=== PATIENT | male | born 1960 | race Caucasian/White ===

== ENCOUNTER 2016-08-08 07:50 | Inpatient (IN) | payer BC ==
[2016-08-08] MEDS ORDERED: methylPREDNISolone SOD SUCCI 125 MG/2 ML VIAL IV STA (08:22)
[2016-08-08] MEDS ORDERED: ALBUTEROL NEBULIZED 2.5 MG/3 ML INHALATION STA (08:22)
[2016-08-08] MEDS: AZITHROMYCIN 500 MG in SODIUM CHLORIDE 0.9% 250 ML IVPB STA ×2 (08:48→10:39)
[2016-08-08] MEDS: IPRATROPIUM-ALBUTEROL 3 ML NEB INHALATION STA ×2 (09:00→09:08)
[2016-08-08 09:29] LABS: CH 36.3; CHCM 37.7; HCT 42.4 % (39.0-53.0); HDW 2.18; HGB 15.5 gm/dL (13.0-17.5); Immature Gran Flag Moderate; MCH 35.3 pg (25.0-35.0); MCHC 36.7 g/dL (31.0-37.0); MCV 96.4 fL (80.0-100.0); Mean Platelet Volume 7.4; RDW 12.3 % (11.5-15.5); WBC 9.6 k/uL (3.8-10.6); WBC (Perox) 9.67
[2016-08-08 09:36] LABS: Partial Thromboplastin Time 38.9 sec (22.0-30.0); Prothrombin Time 10.5 sec (9.0-12.0)
[2016-08-08 09:43] LABS: ALT 47 U/L (21-72); AST 88 U/L (17-59); Alkaline Phosphatase 68 U/L (38-126); Blood Urea Nitrogen 8 mg/dL (9-20); Calcium 8.2 mg/dL (8.4-10.2); Carbon Dioxide 29 mmol/L (22-30); Glucose 122 mg/dL (74-99); Non-African American GFR(MDRD) >60 (>60 ml/min/1.73 sqM); Potassium 4.5 mmol/L (3.5-5.1); Total Bilirubin 0.6 mg/dL (0.2-1.3); Total Protein 6.6 g/dL (6.3-8.2)
[2016-08-08 09:45] LABS: Anion Gap 8 mmol/L
[2016-08-08] MEDS ORDERED: OSELTAMIVIR 75 MG CAP PO STA (09:45)
--- NOTE | 2016-08-08 09:54 | XR ---
EXAMINATION TYPE: XR chest 1V portable DATE OF EXAM: 08/08/2016 9:40 AM COMPARISON: NONE HISTORY: Cough and congestion TECHNIQUE: Single frontal view of the chest is obtained. FINDINGS: Heart and mediastinum are normal. There is some coarsening of interstitial markings in the left lower lobe. There is no pleural effusion. There are no hilar masses. IMPRESSION: Mild left lower lobe infiltrate. No heart failure.
[2016-08-08 09:55] LABS: Add Differential Manual Differential; Troponin I <0.012 ng/mL (0.000-0.034)
[2016-08-08 09:59] LABS: Manual Review Performed; Metamyelocytes % 3.5 %; Nucleated Red Blood Cells 0 /100 WBC (0-0); Total Cells Counted 200
[2016-08-08 10:05] LABS: Chloride 75 mmol/L (98-107); Creatine Kinase MB 4.9 ng/mL (0.0-2.4); Sodium 112 mmol/L (137-145)
[2016-08-08] MEDS ORDERED: SODIUM CHLORIDE 0.9% 500 ML IV ONE (10:12)
[2016-08-08] MEDS ORDERED: RX INFO: IV CONTRAST WAS GIVEN 1 EACH MISC MISCELLANE PRN (10:13)
[2016-08-08 10:18] LABS: Creatine Kinase 1989 U/L (55-170)
--- NOTE | 2016-08-08 10:20 | ED ---
SOB HPI - General Chief Complaint: Shortness of Breath Stated Complaint: flu symptoms,rib cage pain Time Seen by Provider: 08/08/16 08:09 Source: patient, family Mode of arrival: ambulatory Limitations: no limitations - History of Present Illness Initial Comments: Shortness of breath ongoing for about 1.5 weeks he was diagnosed with the flu and he been feeling worse off-and-on for about last several days and off and on he had a fever he feels quite tired and actually he stating he feels like he's time and on arrival his O2 sat room air was 89 he was poorly moving air in and out. Denies any headaches no neck stiffness does have a shortness of breath does have a some discomfort with deep breaths and as a history of hepatitis C he said he has been treated for the pain upon surgical history is significant for multiple hernia surgeries he had a 3-4 interventions for his hernias no abdominal pain no frequency urgency dysuria no sinus symptoms of TIA or CVA - Related Data Home Medications Medication Instructions Recorded Confirmed Cyanocobalamin (Vitamin B-12) 2,500 mcg PO DAILY 08/08/16 08/08/16 [Vitamin B12] Ibuprofen [Advil] 600 mg PO Q6HR PRN 08/08/16 08/08/16 Multivit-Min/FA/Lycopene/Lut 1 tab PO DAILY 08/08/16 08/08/16 [Centrum Silver Tablet] Allergies Allergy/AdvReac Type Severity Reaction Status Date / Time No Known Allergies Allergy Verified 08/08/16 12:13 Review of Systems ROS Statement: Those systems with pertinent positive or pertinent negative responses have been documented in the HPI. ROS Other: All systems not noted in ROS Statement are negative. Past Medical History Additional Past Medical History / Comment(s): hepatitis C History of Any Multi-Drug Resistant Organisms: None Reported Past Psychological History: No Psychological Hx Reported Smoking Status: Current every day smoker Past Alcohol Use History: None Reported Past Drug Use History: None Reported General Exam - General Exam Comments Initial Comments: General: The patient is awake and alert, he looks pale and weak Skin: Skin is warm and dry and no rashes or lesions are noted. Eye: Pupils are equal, round and reactive to light, extra-ocular movements are intact; there is normal conjunctiva bilaterally. Ears, nose, mouth and throat: There are moist mucous membranes and no oral lesions. Neck: The neck is supple, there is no tenderness Cardiovascular: There is a regular rate and rhythm. No murmur, rub or gallop is appreciated. Respiratory: To auscultation bilateral, some is consistent with the moderate to severe COPD and exchange is bit better on the left side Gastrointestinal: Soft, non-distended, non-tender abdomen without masses or organomegaly noted. There is no rebound or guarding present. Bowel sounds are unremarkable. Back: There is no tenderness to palpation in the midline. There is no obvious deformity. Musculoskeletal: Normal ROM, no tenderness, There is no pedal edema. There is no calf tenderness or swelling. No cords were appreciated. Neurological: CN II-XII intact, Cranial nerves III through XII are intact. There are no obvious motor or sensory deficits. Coordination appears grossly intact. Speech is normal. Psychiatric: Cooperative, appropriate mood & affect, normal judgment. Limitations: no limitations Course Vital Signs 08/08/16 08/08/16 08/08/16 08:01 09:03 09:05 Temperature 99.0 F Pulse Rate 101 H 96 Respiratory 20 18 Rate Blood Pressure 131/69 O2 Sat by Pulse 88 L Oximetry 08/08/16 08/08/16 08/08/16 09:10 09:11 09:12 Temperature Pulse Rate 98 98 97 Respiratory 18 Rate Blood Pressure 139/80 O2 Sat by Pulse 91 L Oximetry 08/08/16 08/08/16 08/08/16 09:20 10:59 12:09 Temperature Pulse Rate 100 97 96 Respiratory 25 H 25 H Rate Blood Pressure 139/82 136/85 O2 Sat by Pulse 97 93 L Oximetry This EKG is normal sinus rhythm ventricular rate is 100 DE interval is 144 QRS duration is 92 QT/QTc is 346/446 review of this EKG did not reveal any ST elevation or ST depression it seems bit prominent in V4 V5 and V6 - Reevaluation(s) Reevaluation #1: 08/08/16 13:03 I spoke with the Dr. Anthony or about all the comorbidities and hypoxia, pneumonia, hyponatremia he has she agreed for the patient to be To the ICU for now will continue the BiPAP as well Medical Decision Making - Lab Data Result diagrams: 08/08/16 08:55 08/08/16 08:55 Lab Results 08/08/16 08/08/16 08/08/16 Range/Units 08:55 08:55 08:55 WBC 9.6 (3.8-10.6) k/uL RBC 4.40 (4.30-5.90) m/uL Hgb 15.5 (13.0-17.5) gm/dL Hct 42.4 (39.0-53.0) % MCV 96.4 (80.0-100.0) fL MCH 35.3 H (25.0-35.0) pg MCHC 36.7 (31.0-37.0) g/dL RDW 12.3 (11.5-15.5) % Plt Count 145 L (150-450) k/uL Neutrophils % (Manual) 57.0 % Band Neutrophils % 29.0 % Lymphocytes % (Manual) 3.5 % Monocytes % (Manual) 7.0 % Metamyelocytes % 3.5 % Neutrophils # (Manual) 8.3 H (1.3-7.7) k/uL Lymphocytes # (Manual) 0.3 L (1.0-4.8) k/uL Monocytes # (Manual) 0.7 (0-1.0) k/uL Nucleated RBCs 0 (0-0) /100 WBC Manual Slide Review Performed Poikilocytosis (manual Present PT (9.0-12.0) sec INR (<1.1) APTT (22.0-30.0) sec D-Dimer (<0.60) mg/L FEU Sample Site ABG pH (7.35-7.45) ABG pCO2 (35-45) mmHg ABG pO2 (83-108) mmHg ABG HCO3 (21-25) mmol/L ABG Total CO2 (19-24) mmol/L ABG O2 Saturation (94-97) % ABG Base Excess mmol/L FiO2 % Sodium 112 L* (137-145) mmol/L Potassium 4.5 (3.5-5.1) mmol/L Chloride 75 L* (98-107) mmol/L Carbon Dioxide 29 (22-30) mmol/L Anion Gap 8 mmol/L BUN 8 L (9-20) mg/dL Creatinine 0.58 L (0.66-1.25) mg/dL Est GFR (MDRD) Af Amer >60 (>60 ml/min/1.73 sqM) Est GFR (MDRD) Non-Af >60 (>60 ml/min/1.73 sqM) Glucose 122 H (74-99) mg/dL Plasma Lactic Acid Paramjit (0.7-2.0) mmol/L Calcium 8.2 L (8.4-10.2) mg/dL Total Bilirubin 0.6 (0.2-1.3) mg/dL AST 88 H (17-59) U/L ALT 47 (21-72) U/L Alkaline Phosphatase 68 (38-126) U/L Total Creatine Kinase 1989 H (55-170) U/L CK-MB (CK-2) 4.9 H* (0.0-2.4) ng/mL CK-MB (CK-2) Rel Index Troponin I <0.012 (0.000-0.034) ng/mL NT-Pro-B Natriuret Pep pg/mL Total Protein 6.6 (6.3-8.2) g/dL Albumin 3.9 (3.5-5.0) g/dL Influenza Type A RNA (Not Detectd) Influenza Type B (PCR) (Not Detectd) 08/08/16 08/08/16 08/08/16 Range/Units 08:55 08:55 08:55 WBC (3.8-10.6) k/uL RBC (4.30-5.90) m/uL Hgb (13.0-17.5) gm/dL Hct (39.0-53.0) % MCV (80.0-100.0) fL MCH (25.0-35.0) pg MCHC (31.0-37.0) g/dL RDW (11.5-15.5) % Plt Count (150-450) k/uL Neutrophils % (Manual) % Band Neutrophils % % Lymphocytes % (Manual) % Monocytes % (Manual) % Metamyelocytes % % Neutrophils # (Manual) (1.3-7.7) k/uL Lymphocytes # (Manual) (1.0-4.8) k/uL Monocytes # (Manual) (0-1.0) k/uL Nucleated RBCs (0-0) /100 WBC Manual Slide Review Poikilocytosis (manual PT 10.5 (9.0-12.0) sec INR 1.0 (<1.1) APTT 38.9 H (22.0-30.0) sec D-Dimer 1.06 H (<0.60) mg/L FEU Sample Site ABG pH (7.35-7.45) ABG pCO2 (35-45) mmHg ABG pO2 (83-108) mmHg ABG HCO3 (21-25) mmol/L ABG Total CO2 (19-24) mmol/L ABG O2 Saturation (94-97) % ABG Base Excess mmol/L FiO2 % Sodium (137-145) mmol/L Potassium (3.5-5.1) mmol/L Chloride (98-107) mmol/L Carbon Dioxide (22-30) mmol/L Anion Gap mmol/L BUN (9-20) mg/dL Creatinine (0.66-1.25) mg/dL Est GFR (MDRD) Af Amer (>60 ml/min/1.73 sqM) Est GFR (MDRD) Non-Af (>60 ml/min/1.73 sqM) Glucose (74-99) mg/dL Plasma Lactic Acid Paramjit (0.7-2.0) mmol/L Calcium (8.4-10.2) mg/dL Total Bilirubin (0.2-1.3) mg/dL AST (17-59) U/L ALT (21-72) U/L Alkaline Phosphatase (38-126) U/L Total Creatine Kinase (55-170) U/L CK-MB (CK-2) (0.0-2.4) ng/mL CK-MB (CK-2) Rel Index Troponin I (0.000-0.034) ng/mL NT-Pro-B Natriuret Pep 162 pg/mL Total Protein (6.3-8.2) g/dL Albumin (3.5-5.0) g/dL Influenza Type A RNA Not Detected (Not Detectd) Influenza Type B (PCR) Detected H (Not Detectd) 08/08/16 08/08/16 Range/Units 08:58 09:32 WBC (3.8-10.6) k/uL RBC (4.30-5.90) m/uL Hgb (13.0-17.5) gm/dL Hct (39.0-53.0) % MCV (80.0-100.0) fL MCH (25.0-35.0) pg MCHC (31.0-37.0) g/dL RDW (11.5-15.5) % Plt Count (150-450) k/uL Neutrophils % (Manual) % Band Neutrophils % % Lymphocytes % (Manual) % Monocytes % (Manual) % Metamyelocytes % % Neutrophils # (Manual) (1.3-7.7) k/uL Lymphocytes # (Manual) (1.0-4.8) k/uL Monocytes # (Manual) (0-1.0) k/uL Nucleated RBCs (0-0) /100 WBC Manual Slide Review Poikilocytosis (manual PT (9.0-12.0) sec INR (<1.1) APTT (22.0-30.0) sec D-Dimer (<0.60) mg/L FEU Sample Site lbrac ABG pH 7.51 H (7.35-7.45) ABG pCO2 31 L (35-45) mmHg ABG pO2 60 L (83-108) mmHg ABG HCO3 24 (21-25) mmol/L ABG Total CO2 25 H (19-24) mmol/L ABG O2 Saturation 93.0 L (94-97) % ABG Base Excess 1.5 mmol/L FiO2 55 % Sodium (137-145) mmol/L Potassium (3.5-5.1) mmol/L Chloride (98-107) mmol/L Carbon Dioxide (22-30) mmol/L Anion Gap mmol/L BUN (9-20) mg/dL Creatinine (0.66-1.25) mg/dL Est GFR (MDRD) Af Amer (>60 ml/min/1.73 sqM) Est GFR (MDRD) Non-Af (>60 ml/min/1.73 sqM) Glucose (74-99) mg/dL Plasma Lactic Acid Paramjit 0.8 (0.7-2.0) mmol/L Calcium (8.4-10.2) mg/dL Total Bilirubin (0.2-1.3) mg/dL AST (17-59) U/L ALT (21-72) U/L Alkaline Phosphatase (38-126) U/L Total Creatine Kinase (55-170) U/L CK-MB (CK-2) (0.0-2.4) ng/mL CK-MB (CK-2) Rel Index Troponin I (0.000-0.034) ng/mL NT-Pro-B Natriuret Pep pg/mL Total Protein (6.3-8.2) g/dL Albumin (3.5-5.0) g/dL Influenza Type A RNA (Not Detectd) Influenza Type B (PCR) (Not Detectd) Critical Care Time Critical Care Time: Yes Total Critical Care Time: 60 Critical Care Time: He came in with the O2 sat of firm 89, we tried a neb treatments that did not make a big difference with DT ABGs ABGs reveal quite a low pCO2 and low pCO2 considering his chest x-ray started about some antibiotics and give him some Solu-Medrol considering he has smoked for quite 3 years that did not improve his oxygenation at that point we did the way he did a trial of BiPAP that he didn't help his O2 sat and then we got the labs back his sodium is quite low 112 along with the chloride discussed with the pharmacist and start him on hypertonic saline 5050 mils an hour for next 3 hours she also had some liter of fluids on arrival and SERAFIN flow be administered along with the antibiotics and a considering his elevated d-dimer wanted make sure we are not dealing with a PE and CT angiography done and a regardless of the PE home but his or she will to be an ICU considering his very low sodium and hypoxia Disposition Clinical Impression: Influenza B, Pneumonia, Hypoxia, Hyponatremia, Elevated d-dimer Disposition: ADMITTED IP TO THIS HOSP Referrals: Cornell Leone DO [Primary Care Provider] - 1-2 days
[2016-08-08] MEDS ORDERED: [UNRECOGNIZED DRUG - OTHER] IV ONE (10:30)
[2016-08-08] MEDS ORDERED: SODIUM CHLORIDE 3% IV ONE (10:30)
--- NOTE | 2016-08-08 10:30 | US ---
EXAMINATION TYPE: US abdomen complete DATE OF EXAM: 08/08/2016 10:24 AM COMPARISON: No previous CLINICAL HISTORY: Pain. EXAM MEASUREMENTS: Liver Length: 18.3 cm Gallbladder Wall: 0.2 cm CBD: 0.4 cm Spleen: n/a Right Kidney: 11.8 x 5.3 x 5.9 cm Left Kidney: 11.8 x 6.7 x 5.8 cm Pancreas: visualized portions wnl, body and tail obscured by overlying midline bowel gas Liver: slightly enlarged at 18.3cm Gallbladder: wnl Evidence for sonographic Best's sign: yes CBD: visualized portions wnl, limited by overlying bowel gas Spleen: obscured by overlying bowel gas Right Kidney: wnl Left Kidney: wnl Upper IVC: wnl Abd Aorta: visualized portions wnl, mid and distal portion obscured by overlying midline bowel gas The liver is homogenous. The intrahepatic portion of the IVC and proximal abdominal aorta are within normal limits. There is no evidence of cholelithiasis. Common bile duct is unremarkable. The visu alized portions of the pancreas are homogenous. The spleen is unremarkable. Kidneys are symmetric a nd free of hydronephrosis. No renal lesions are seen. IMPRESSION: Negative complete abdominal sonogram.
[2016-08-08 10:31] LABS: ABG Base Excess 1.5 mmol/L; ABG HCO3 24 mmol/L (21-25); ABG PCO2 31 mmHg (35-45); ABG PH 7.51 (7.35-7.45); ABG PO2 60 mmHg (83-108); ABG TCO2 25 mmol/L (19-24)
[2016-08-08] MEDS: SODIUM CHLORIDE 0.9% 1,000 ML IV SCH (10:36)
--- NOTE | 2016-08-08 12:08 | CT ---
EXAMINATION TYPE: CT angio chest DATE OF EXAM: 08/08/2016 11:51 AM COMPARISON: NONE HISTORY: SOB, Rib pain CT DLP: 219.1 mGycm Automated exposure control for dose reduction was used. CONTRAST: CTA scan of the thorax is performed with IV Contrast, patient injected with 100 mL of Omnipaque 350, pulmonary embolism protocol. . FINDINGS: There are 3-D post processed images. There are numerous patchy areas of interstitial infiltrate in both lungs. There is some coalescent de nsity at both posterior lung bases. There is no pleural effusion. I see no filling defects in the pulmonary arteries. There is no evidence of aortic aneurysm or dissec tion. There are no hilar masses. There are few mediastinal lymph nodes that measure up to 1 cm. There is no pericardial effusion. Bony thorax is intact. IMPRESSION: NO EVIDENCE OF PULMONARY EMBOLISM. BILATERAL PULMONARY AIRSPACE AND INTERSTITIAL PNEUMONIC INFILTRATES. THERE IS SOME CONSOLIDATION AT T HE POSTERIOR LUNG BASES.
[2016-08-08] MEDS ORDERED: LORazepam 2 MG/ML SYRINGE IV STA (12:12)
[2016-08-08] MEDS ORDERED: MORPHINE SULFATE 10 MG/ML SYRINGE IV PRN (13:04)
[2016-08-08] MEDS ORDERED: NALOXONE 0.4 MG/ML 1 ML VIAL IV PRN (13:04)
[2016-08-08 14:04] LABS: Glucose,Whole Blood 151 mg/dL (75-99)
[2016-08-08 14:42] VITALS: BMI 24.3
[2016-08-08] MEDS: ALPRAZolam 0.25 MG TAB PO PRN (14:59)
[2016-08-08 15:25] LABS: Anion Gap 12 mmol/L; Blood Urea Nitrogen 8 mg/dL (9-20); Calcium 7.9 mg/dL (8.4-10.2); Carbon Dioxide 22 mmol/L (22-30); Chloride 87 mmol/L (98-107); Glucose 134 mg/dL (74-99); Non-African American GFR(MDRD) >60 (>60 ml/min/1.73 sqM); Sodium 121 mmol/L (137-145)
[2016-08-08 15:29] LABS: Potassium 4.4 mmol/L (3.5-5.1)
[2016-08-08] MEDS: IPRATROPIUM-ALBUTEROL 3 ML NEB INHALATION PRN ×2 (15:31→19:29)
[2016-08-08] MEDS ORDERED: LORazepam 2 MG/ML SYRINGE IV PRN ×3 (15:57)
[2016-08-08] MEDS ORDERED: PIPERACILLIN-TAZOBACTAM 3.375 GM in DEXTROSE/WATER 1 50ML.BAG IVPB SCH (17:00)
--- NOTE | 2016-08-08 18:38 | P.CONS ---
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 He's had difficulty with fevers and chills that have come and gone. He's had significant and progressive fatigue. He felt like he may have had the flu with some body aches as well as cough, scant sputum production and some nasal congestion. As he continued to weaken he finally presented to emergency center where he was out evidence of hypoxia and significant shortness of breath. Chest x-ray was abnormal and The Patient Was Admitted to the Intensive Care Unit Because of the Needs for BiPAP for Respiratory Support. Because of the Significant Pneumonia and Influenza the Infectious Diseases Consultation Was Requested. At this time this pleasant gentleman relates he still feels very poorly. He finds the BiPAP very uncomfortable. Follow he is trying to tolerated because he understands its importance. He is not a detailed historian at this time. It is noted that he had significant hyponatremia at admission that is now improving. There is notation that he has had treatment for hepatitis C that it does not appear that this is current. Review of Systems HEENT:Denies headache or acute visual change. Denies sinus or mouth discomforts. Denies neck stiffness or pain. Denies significant oral cavity pain. Denies difficulty on swallowing. Lungs: Positive shortness of breath positive cough minimal sputum production or hemoptysis. Cardiovascular: Has had significant shortness of breath but denies chest pain, chest wall pain, or syncope. Head distinct orthopnea and dyspnea on exertion Gastrointestinal:Denies nausea, vomiting, diarrhea, constipation, hematemesis, melena, hematochezia. No no significant change of bowel habit noticed. Musculoskeletal: Generalized weakness generalized malaise but no significant new joint swellings. Skin: Denies new rash or lesions. No new ulcers or wounds are related.. Neuro: Denies headache or visual change. Denies any new onset weakness or difficulty with ambulation. Denies falls or seizures. Psychiatric:Denies anxiety or depression. Endocrine:Worsening fatigue but no weight change. 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 No extensive travel. Positive tobacco use. Drinks alcohol daily, multiple drinks per day. Denies injection drug use or other recreational drug use. No animal exposures Smoking Status: Current every day smoker Past Alcohol Use History: None Reported Past Drug Use History: None Reported Medications and Allergies Home Medications and Allergies Comment(s): Current Medications Acetaminophen (Tylenol Tab) 650 mg PO Q4HR PRN PRN Reason: Fever and/or Mild Pain Albuterol/Ipratropium (Duoneb 0.5 Mg-3 Mg/3 Ml Soln) 3 ml INHALATION RT-Q4H PRN PRN Reason: Shortness Of Breath Or Wheezing Last Admin: 08/08/16 15:31 Dose: 3 ml Alprazolam (Xanax) 0.25 mg PO Q6HR PRN PRN Reason: Moderate Anxiety Last Admin: 08/08/16 14:59 Dose: 0.25 mg Cyanocobalamin (Vitamin B-12) 2,500 mcg PO DAILY [facility] Sodium Chloride (Saline 0.9%) 1,000 mls @ 75 mls/hr IV .[id number] [facility] Last Admin: 08/08/16 10:36 Dose: 100 mls/hr Levofloxacin 750 mg/ IV (Solution) 150 mls @ 100 mls/hr IVPB Q24HR@2000 [facility] Piperacillin/Tazobactam/ (Dextrose 3.375 gm/ IV Solution) 50 mls @ 12.5 mls/hr IVPB Q8HR [facility] Last Admin: 08/08/16 16:42 Dose: 12.5 mls/hr Lorazepam (Ativan) 1 mg IV Q2HR PRN PRN Reason: CIWA 8 or 9 Lorazepam (Ativan) 1 mg IV Q1HR PRN PRN Reason: CIWA 10 to 15 Lorazepam (Ativan) 2 mg IV Q1HR PRN PRN Reason: CIWA 16 or higher Miscellaneous Information (Rx Info: Iv Contrast Was Given) 1 each MISCELLANE DAILY PRN PRN Reason: Per Protocol Stop: 08/10/16 10:13 Morphine Sulfate (Morphine Sulfate (Inj)) 5 mg IV Q2HR PRN PRN Reason: Pain Scale 10 Naloxone HCl (Narcan) 0.2 mg IV Q2M PRN PRN Reason: Opioid Reversal Oseltamivir Phosphate (Tamiflu) 75 mg PO BID [facility] Stop: 08/12/16 21:01 Pantoprazole Sodium (Protonix) 40 mg IV DAILY [facility] Home Medications Medication Instructions Recorded Confirmed Type Cyanocobalamin (Vitamin B-12) 2,500 mcg PO DAILY 08/08/16 08/08/16 History [Vitamin B12] Ibuprofen [Advil] 600 mg PO Q6HR PRN 08/08/16 08/08/16 History Multivit-Min/FA/Lycopene/Lut 1 tab PO DAILY 08/08/16 08/08/16 History [Centrum Silver Tablet] Allergies Allergy/AdvReac Type Severity Reaction Status Date / Time No Known Allergies Allergy Verified 08/08/16 12:13 Physical Exam Vitals: Vital Signs Temp Pulse Pulse Resp BP BP Pulse Ox 08/08/16 18:00 81 23 93/54 94 L 08/08/16 17:00 93 25 H 108/70 96 08/08/16 16:00 99.0 F 98 29 H 139/82 94 L 08/08/16 15:44 96 08/08/16 15:35 99 08/08/16 15:00 96 32 H 147/92 97 08/08/16 14:35 99.0 F 93 22 129/82 97 08/08/16 14:20 99.0 F 96 29 H 129/82 95 08/08/16 13:27 98.0 F 08/08/16 13:08 91 20 130/88 97 Intake and Output 08/08/16 08/08/16 08/08/16 06:59 14:59 22:59 Intake Total 100 200.0 Output Total 875 Balance 100 -675.0 Intake: Intake, IV Titration 100 200.0 Amount Piperacillin-Tazobactam 3 25.0 .375 gm In Dextrose/Water 1 50ml.bag @ 12.5 mls/hr IVPB Q8HR [facility] Rx#: [id number] Sodium Chloride 0.9% 1, 100 175 000 ml @ 75 mls/hr IV . [id number] [facility] Rx#:[id number] Output: Urine 875 Other: Voiding Method Urinal # Voids 1 Weight 77.1 kg Patient Weight 08/09/16 06:59 Weight 77.1 kg 56-year-old male who appears to have significant outside exposure by his skin tone, is not feeling well and is quite short of breath. BiPAP is in place that he is just tolerating. Ask several times a significant be removed. And the importance of it for his respiratory status is related. HEENT: Anicteric conjunctiva are pink and moist nasal mucosa grossly intact without significant lesions, there is no thrush. Neck: The neck is supple without significant lymphadenopathy or thyromegaly. Lungs: Symmetrical air entry is noted. Coarse crackles at the lung yeung is noted. There are crackles at the bases. No egophony or dullness was noted Heart: Tachycardic but normal rhythm with an audible S1-S2, no S3 no S4. There is no significant murmur click or rub, PMI was nondisplaced. Abdomen: Thin, Positive bowel sounds soft and nontender without palpable masses or organomegaly. There was no guarding or rebound. Extremities: The upper extremities have excellent pulses they are symmetric, no significant petechiae or telangiectasia. No splinter hemorrhages were noted. The lower extremities are free from significant edema. The peripheral pulses were 2+ and symmetric. Neuro: Awake alert oriented to person place and time. There are no acute new gross focal sensory motor deficits. Skin is without rash lesions or breakdown Results CBC & Chem 7: 08/08/16 08:55 08/08/16 14:30 Labs: Abnormal Lab Results - Last 24 Hours (Table) 08/08/16 08/08/16 Range/Units 14:02 14:30 Sodium 121 L (137-145) mmol/L Chloride 87 L (98-107) mmol/L BUN 8 L (9-20) mg/dL Creatinine 0.55 L (0.66-1.25) mg/dL Glucose 134 H (74-99) mg/dL POC Glucose (mg/dL) 151 H (75-99) mg/dL Calcium 7.9 L (8.4-10.2) mg/dL Laboratory Results WBC 9.6 k/uL (3.8-10.6) 08/08/16 08:55 RBC 4.40 m/uL (4.30-5.90) 08/08/16 08:55 Hgb 15.5 gm/dL (13.0-17.5) 08/08/16 08:55 Hct 42.4 % (39.0-53.0) 08/08/16 08:55 MCV 96.4 fL (80.0-100.0) 08/08/16 08:55 MCH 35.3 pg (25.0-35.0) H 08/08/16 08:55 MCHC 36.7 g/dL (31.0-37.0) 08/08/16 08:55 RDW 12.3 % (11.5-15.5) 08/08/16 08:55 Plt Count 145 k/uL (150-450) L 08/08/16 08:55 Neutrophils % (Manual) 57.0 % 08/08/16 08:55 Band Neutrophils % 29.0 % 08/08/16 08:55 Lymphocytes % (Manual) 3.5 % 08/08/16 08:55 Monocytes % (Manual) 7.0 % 08/08/16 08:55 Metamyelocytes % 3.5 % 08/08/16 08:55 Neutrophils # (Manual) 8.3 k/uL (1.3-7.7) H 08/08/16 08:55 Lymphocytes # (Manual) 0.3 k/uL (1.0-4.8) L 08/08/16 08:55 Monocytes # (Manual) 0.7 k/uL (0-1.0) 08/08/16 08:55 Nucleated RBCs 0 /100 WBC (0-0) 08/08/16 08:55 Manual Slide Review Performed 08/08/16 08:55 Poikilocytosis (manual Present 08/08/16 08:55 PT 10.5 sec (9.0-12.0) 08/08/16 08:55 INR 1.0 (<1.1) 08/08/16 08:55 APTT 38.9 sec (22.0-30.0) H 08/08/16 08:55 D-Dimer 1.06 mg/L FEU (<0.60) H 08/08/16 08:55 Sample Site lbrac 08/08/16 09:32 ABG pH 7.51 (7.35-7.45) H 08/08/16 09:32 ABG pCO2 31 mmHg (35-45) L 08/08/16 09:32 ABG pO2 60 mmHg (83-108) L 08/08/16 09:32 ABG HCO3 24 mmol/L (21-25) 08/08/16 09:32 ABG Total CO2 25 mmol/L (19-24) H 08/08/16 09:32 ABG O2 Saturation 93.0 % (94-97) L 08/08/16 09:32 ABG Base Excess 1.5 mmol/L 08/08/16 09:32 FiO2 55 % 08/08/16 09:32 Sodium 121 mmol/L (137-145) L 08/08/16 14:30 Potassium 4.4 mmol/L (3.5-5.1) 08/08/16 14:30 Chloride 87 mmol/L (98-107) L 08/08/16 14:30 Carbon Dioxide 22 mmol/L (22-30) 08/08/16 14:30 Anion Gap 12 mmol/L 08/08/16 14:30 BUN 8 mg/dL (9-20) L 08/08/16 14:30 Creatinine 0.55 mg/dL (0.66-1.25) L 08/08/16 14:30 Est GFR (MDRD) Af Amer >60 (>60 ml/min/1.73 sqM) 08/08/16 14:30 Est GFR (MDRD) Non-Af >60 (>60 ml/min/1.73 sqM) 08/08/16 14:30 Glucose 134 mg/dL (74-99) H 08/08/16 14:30 POC Glucose (mg/dL) 151 mg/dL (75-99) H 08/08/16 14:02 POC Glu [employer] Safety Inspector ID Manny Andrés 08/08/16 14:02 Plasma Lactic Acid Paramjit 0.8 mmol/L (0.7-2.0) 08/08/16 08:58 Calcium 7.9 mg/dL (8.4-10.2) L 08/08/16 14:30 Total Bilirubin 0.6 mg/dL (0.2-1.3) 08/08/16 08:55 AST 88 U/L (17-59) H 08/08/16 08:55 ALT 47 U/L (21-72) 08/08/16 08:55 Alkaline Phosphatase 68 U/L (38-126) 08/08/16 08:55 Total Creatine Kinase 1989 U/L (55-170) H 08/08/16 08:55 CK-MB (CK-2) 4.9 ng/mL (0.0-2.4) H* 08/08/16 08:55 CK-MB (CK-2) Rel Index 08/08/16 08:55 Troponin I <0.012 ng/mL (0.000-0.034) 08/08/16 08:55 NT-Pro-B Natriuret Pep 162 pg/mL 08/08/16 08:55 Total Protein 6.6 g/dL (6.3-8.2) 08/08/16 08:55 Albumin 3.9 g/dL (3.5-5.0) 08/08/16 08:55 Influenza Type A RNA Not Detected (Not Detectd) 08/08/16 08:55 Influenza Type B (PCR) Detected (Not Detectd) H 08/08/16 08:55 CT scan - chest: report reviewed (The CT reveals evidence of the lack upon her embolus but there is bilateral airspace and interstitial pneumonic infiltrates with) Assessment and Plan (1) Influenza B Narrative/Plan: 56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 He has evidence of respiratory failure required BiPAP support for his respiratory failure. Test reveals evidence of his positive status for influenza B. And Tamiflu has begun. The patient has evidence of significant pneumonia also on his chest x-ray. Because of concern would be to staph aureus pneumonia. With this antibiotic therapy will include Ceftaroline to ensure were treating for staph as well as potential MRSA pneumonia in this patient that has extensive outside contact with the community. Patient had significant hyponatremia unclear etiology except pneumonia certainly can cause hyponatremia he is responding well to current intervention. He has mild altered mental status that is likely due to the hyponatremia. Expect this to rapidly improve now that his sodium has improved. Not having high-grade fever at this time. Patient relates to a history of extensive alcohol intake on a daily basis. Is being monitored closely for alcohol withdrawal also. Status: Acute (2) Pneumonia Status: Acute (3) Hyponatremia Status: Acute (4) Altered mental status Status: Acute
[2016-08-08] MEDS: CEFTAROLINE FOSAMIL 600 MG in SODIUM CHLORIDE 0.9% 250 ML IVPB SCH (19:06)
[2016-08-08] MEDS ORDERED: LEVOFLOXACIN 750MG-D5W PMX 750 MG in DEXTROSE/WATER 1 150ML.BAG IVPB SCH (20:00)
[2016-08-08] MEDS: OSELTAMIVIR 75 MG CAP PO SCH (20:29)
[2016-08-08] MEDS ORDERED: CEFTAROLINE FOSAMIL 600 MG in SODIUM CHLORIDE 0.9% 250 ML IVPB SCH (21:00)
[2016-08-09] MEDS: SODIUM CHLORIDE 0.9% 1,000 ML IV SCH ×2 (01:30→12:46)
[2016-08-09 04:52] LABS: Basophils % (A) 0 %; CHCM 35.5; Eosinophils % (A) 0 %; HCT 43.6 % (39.0-53.0); HGB 14.9 gm/dL (13.0-17.5); Luc # (Auto) 0.23; Luc % (Auto) 2; Lymphocytes # (A) 0.6 k/uL (1.0-4.8); Lymphocytes % (A) 5 %; MCH 33.8 pg (25.0-35.0); MCHC 34.1 g/dL (31.0-37.0); Mean Platelet Volume 6.9; Monocytes # (A) 0.5 k/uL (0-1.0); Monocytes % (A) 5 %; Neutrophils # (A) 9.9 k/uL (1.3-7.7); Neutrophils % (A) 88 %; RBC 4.41 m/uL (4.30-5.90); RDW 12.6 % (11.5-15.5); WBC 11.2 k/uL (3.8-10.6); WBC (Perox) 11.18
[2016-08-09 05:37] LABS: Anion Gap 11 mmol/L; Blood Urea Nitrogen 9 mg/dL (9-20); Calcium 8.3 mg/dL (8.4-10.2); Carbon Dioxide 24 mmol/L (22-30); Chloride 95 mmol/L (98-107); Glucose 110 mg/dL (74-99); Non-African American GFR(MDRD) >60 (>60 ml/min/1.73 sqM); Potassium 4.6 mmol/L (3.5-5.1); Sodium 130 mmol/L (137-145)
[2016-08-09] MEDS: CEFTAROLINE FOSAMIL 600 MG in SODIUM CHLORIDE 0.9% 250 ML IVPB SCH ×2 (06:19→18:20)
--- NOTE | 2016-08-09 06:59 | XR ---
EXAMINATION TYPE: XR chest 1V DATE OF EXAM: 08/09/2016 6:38 AM HISTORY: shortness of breath . REFERENCE: Previous study dated 08/08/2016. FINDINGS: There is worsening atelectatic change present at both lung bases. The heart is not enlarged . Pleural spaces are clear. IMPRESSION: WORSENING ATELECTATIC CHANGE, BOTH LUNG BASES.
[2016-08-09] MEDS ORDERED: PANTOPRAZOLE 40 MG/10 ML VIAL IV SCH (09:00)
[2016-08-09] MEDS: OSELTAMIVIR 75 MG CAP PO SCH ×2 (09:00→21:52)
[2016-08-09] MEDS: CYANOCOBALAMIN 500 MCG TAB PO SCH (09:00)
--- NOTE | 2016-08-09 10:28 | HP ---
DATE OF ADMISSION: 08/08/2016 CHIEF COMPLAINT: Short of breath. HISTORY OF PRESENT ILLNESS: Mr. Ortiz is a 56-year-old male with no significant past medical history except for hepatitis C, came to the hospital with complaints of short of breath for the past one half weeks and the patient apparently has been feeling very tired and worse on and off for the past several days. Patient came to the ER for further evaluation. Patient was found to have influenza B PCR positive and the patient was really hypoxic on admission. Hyponatremia as well. Patient was on 3% saline in the ER, and his sodium level improved some, 112 to 121. Patient had a CT angiogram of the chest showed bilateral pulmonary ( ) and interstitial pneumonic infiltrates. There is some consolidation in the posterior lung bases. The patient was admitted into the hospital and started on antibiotics as well as Tamiflu. ID has been consulted. Patient currently being monitored in the ICU. The patient is very lethargic but awake, alert. Patient does have altered mental status on admission, which is slightly improved now. REVIEW OF SYSTEMS: CONSTITUTIONAL: Patient does have subjective fevers and chills at home. T-max in the hospital is 99.0. CARDIOVASCULAR: The patient denied any chest pain. Patient does have short of breath. No leg swelling. RESPIRATORY: Patient does have cough, no sputum production. Patient does have short of breath. Patient does have generalized weakness. ABDOMEN: No nausea, vomiting, abdominal pain. GENITOURINARY: Negative. ENDOCRINE: Negative. PSYCHIATRIC: Negative. SKIN: Negative. NEUROLOGIC: No headache or dizziness. Patient does have very lethargic and weak generalized. Past medical history of hepatitis C. PAST SURGICAL HISTORY: None. No psychosocial history. FAMILY HISTORY: Could not be obtained from the patient. No known drug allergies. Home medication include: 1. Vitamin B12. 2. Advil. 3. Centrum silver. PHYSICAL EXAMINATION: A 56-year-old male lying in the bed. Awake, alert, oriented x3, appears to be lethargic and drowsy. VITALS: Blood pressure is 129/82, pulse is 96, respirations 29, temperature afebrile, pulse ox is 95% on 65% FiO2 on BiPAP. HEENT: Atraumatic, normocephalic. Neck is supple. No JVD. CVS: S1, S2 heard. No murmurs. No gallop. LUNGS: Bilateral diffuse rhonchi positive. Nonlabored breathing. ABDOMEN: Soft and nontender. Bowel sounds present. CENTRAL NERVOUS SYSTEM: Awake, alert and oriented x3. No focal deficit. EXTREMITIES: No edema. Pulses palpable bilaterally. No clubbing or cyanosis. PSYCHIATRY: Cooperative. LABORATORY DATA: WBC 9.6, hemoglobin 15.5, platelets 145. INR 1.0. D-dimer is 1.06. Sodium 112, potassium 4.5, chloride 25, bicarb is 29, BUN 8, creatinine 0.58, blood sugar is 122, AST is 88, ALT 47, calcium 8.2, lactic acid 0.8. CPK level is 1989, CK-MB of 4.9, troponin negative. Albumin 3.9 and ( ) toxin negative. CT angiogram of the chest showed no pulmonary embolism and bilateral pulmonary air space and interstitial pneumonic infiltrates. There is some consolidation in the posterior lung bases. IMPRESSION: 1. Acute metabolic and toxic encephalopathy secondary to electrolytes abnormalities as well as infection. 2. Acute influenza B infection. 3. Bilateral pneumonia possibly bacterial. 4. Elevated D-dimer. CT angiogram is negative for any pulmonary embolism. 5. Elevated CPK level, with rhabdomyolysis. 6. History of hepatitis C. 7. Hyponatremia likely hypovolemic as well as secondary to influenza infection. 8. Deep venous thrombosis prophylaxis. 9. Acute hypoxic respiratory failure secondary to pneumonia requiring BiPAP machine. DISCUSSION AND PLAN: A 56 -year-old male admitted to the hospital with ( ) the patient will be continued on IV fluids, continued on Tamiflu and antibiotics have been changed to the ceftaroline to cover methicillin-resistant Staphylococcus aureus as per ID recommendations and continue with azithromycin. Will continue the breathing treatments and follow up closely. The patient was initially on 3% saline and changed to normal saline at 75 mL per hour. Follow up closely. Prognosis is guarded. Will monitor the patient in the ICU. Further recommendations based on the clinical course.
--- NOTE | 2016-08-09 11:13 | P.CNPUL ---
History of Present Illness Consult date: 08/09/16 Requesting physician: Cornell Leone Reason for consult: dyspnea, other (Critical care management) Chief complaint: Nausea, weakness, diarrhea History of present illness: This is a very pleasant 56-year-old gentleman who follows with Dr. Leone as his primary care physician. He has a history of hepatitis C, chronic and ongoing tobacco dependence him a multiple hernia repairs. Approximately 1-1/2 weeks ago he started having flulike symptoms with nausea and fatigue weakness and diarrhea. He was seen at his PCPs office and was instructed to use over-the- counter cold and flu medications. He continued to worsen and presented here to the emergency room yesterday for the same. He was having significant abdominal discomfort and ultrasound revealed no acute abdominal abnormalities. A CT angiogram was performed based on his shortness of breath and complaints of rib pain. Arterial blood gases revealed a PaO2 of 60, pCO2 of 31 and a pH of 7.5 one a 55% FiO2. There is no evidence of pulmonary embolism. There were bilateral pulmonary airspace and interstitial pneumonic infiltrates with some consolidation in the posterior lung bases. He was also found to be influenza B positive. His presenting sodium was 112. He was initiated on 3% normal saline at 50 MLS per hour for 3 hours per the emergency room orders. His current creatinine sodium is up to 130 area he is seen today in consultation in the intensive care unit. He is awake and alert in no acute distress. He denies any confusion, dizziness or lightheadedness. He remains quite weak. He did have a CPK level of 1989. He did tolerate breakfast without any further nausea. No diarrhea currently. He is requiring 10 L of high flow nasal cannula to maintain O2 saturations in the low 90s. He's been hemodynamically stable. Not on any pressors. He is afebrile. No significant leukocytosis. Review of Systems 14 point review of system was conducted. All negative other than as mentioned in the HPI. 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 Positive tobacco use. Drinks alcohol daily, multiple drinks per day. Denies injection drug use or other recreational drug use. No animal exposures Smoking Status: Current every day smoker Past Alcohol Use History: None Reported Past Drug Use History: None Reported Medications and Allergies Home Medications Medication Instructions Recorded Confirmed Type Cyanocobalamin (Vitamin B-12) 2,500 mcg PO DAILY 08/08/16 08/08/16 History [Vitamin B12] Ibuprofen [Advil] 600 mg PO Q6HR PRN 08/08/16 08/08/16 History Multivit-Min/FA/Lycopene/Lut 1 tab PO DAILY 08/08/16 08/08/16 History [Centrum Silver Tablet] Allergies Allergy/AdvReac Type Severity Reaction Status Date / Time No Known Allergies Allergy Verified 08/08/16 12:13 Physical Exam Vitals: Vital Signs Temp Pulse Pulse Resp BP BP Pulse Ox 08/09/16 10:00 98 22 123/71 93 L 08/09/16 09:00 98.4 F 99 26 H 119/75 94 L 08/09/16 08:00 88 20 133/80 96 08/09/16 07:00 86 28 H 124/62 95 08/09/16 06:00 119 H 29 H 114/67 94 L 08/09/16 05:00 98.7 F 87 28 H 114/67 94 L 08/09/16 04:00 95 27 H 109/74 95 08/09/16 03:00 92 27 H 123/74 93 L 08/09/16 02:00 97 25 H 134/70 94 L 08/09/16 01:00 98.7 F 95 30 H 97/78 92 L 08/09/16 00:00 90 28 H 114/77 96 08/08/16 23:00 92 23 117/62 94 L 08/08/16 22:00 100 16 101/57 97 08/08/16 21:00 86 28 H 111/68 98 08/08/16 20:00 98.3 F 116 H 28 H 120/79 95 08/08/16 19:29 102 H 08/08/16 19:00 100 31 H 117/75 92 L 08/08/16 18:00 81 23 93/54 94 L 08/08/16 17:00 93 25 H 108/70 96 08/08/16 16:00 99.0 F 98 29 H 139/82 94 L 08/08/16 15:44 96 08/08/16 15:35 99 08/08/16 15:00 96 32 H 147/92 97 08/08/16 14:35 99.0 F 93 22 129/82 97 08/08/16 14:20 99.0 F 96 29 H 129/82 95 08/08/16 13:27 98.0 F 08/08/16 13:08 91 20 130/88 97 Intake and Output 08/08/16 08/09/16 08/09/16 22:59 06:59 14:59 Intake Total 540.0 880 420 Output Total 1725 950 Balance -1185.0 -70 420 Intake: IV 237.5 850 300 Ceftaroline Fosamil 600 250 mg In Sodium Chloride 0.9 % 250 ml @ 250 mls/hr IVPB Q12HR@0600,1800 [facility] Rx#:[id number] Piperacillin-Tazobactam 3 12.5 .375 gm In Dextrose/Water 1 50ml.bag @ 12.5 mls/hr IVPB Q8HR [facility] Rx#: [id number] Sodium Chloride 0.9% 1, 225 600 300 000 ml @ 75 mls/hr IV . [id number] [facility] Rx#:[id number] Intake, IV Titration 212.5 Amount Piperacillin-Tazobactam 3 37.5 .375 gm In Dextrose/Water 1 50ml.bag @ 12.5 mls/hr IVPB Q8HR [facility] Rx#: [id number] Sodium Chloride 0.9% 1, 175 000 ml @ 75 mls/hr IV . [id number] [facility] Rx#:[id number] Oral 90 30 120 Output: Urine 1725 950 Other: Voiding Method Urinal Urinal # Voids 1 1 # Bowel Movements 1 GENERAL EXAM: Alert, active, comfortable in no apparent distress. HEAD: Normocephalic. EYES: Normal reaction of pupils, equal size. NOSE: Clear with pink turbinates. THROAT: No erythema or exudates. NECK: No masses, no JVD. CHEST: No chest wall deformity. LUNGS: Equal air entry with scattered rhonchi. CVS: S1 and S2 normal with no audible murmurs, regular rhythm. ABDOMEN: Tender to palpation, normal bowel sounds, no guarding or rigidity. SPINE: No scoliosis or deformity SKIN: No rashes CENTRAL NERVOUS SYSTEM: No focal deficits, tone is normal in all 4 extremities. Extremities: There is no significant peripheral edema. No clubbing, no cyanosis. Peripheral pulses are intact. Results - Laboratory Findings CBC and BMP: 08/09/16 04:13 08/09/16 04:13 ABG ABG pH 7.51 (7.35-7.45) H 08/08/16 09:32 ABG pCO2 31 mmHg (35-45) L 08/08/16 09:32 ABG pO2 60 mmHg (83-108) L 08/08/16 09:32 ABG O2 Saturation 93.0 % (94-97) L 08/08/16 09:32 PT/INR, D-dimer PT 10.5 sec (9.0-12.0) 08/08/16 08:55 INR 1.0 (<1.1) 08/08/16 08:55 D-Dimer 1.06 mg/L FEU (<0.60) H 08/08/16 08:55 Abnormal lab findings: Abnormal Labs 08/08/16 08/08/16 08/08/16 14:02 14:30 20:27 WBC Neutrophils # Lymphocytes # Sodium 121 L 129 L Chloride 87 L BUN 8 L Creatinine 0.55 L Glucose 134 H POC Glucose (mg/dL) 151 H Calcium 7.9 L 08/09/16 08/09/16 04:13 04:13 WBC 11.2 H Neutrophils # 9.9 H Lymphocytes # 0.6 L Sodium 130 L Chloride 95 L BUN Creatinine 0.60 L Glucose 110 H POC Glucose (mg/dL) Calcium 8.3 L - Diagnostic Findings Chest x-ray: image reviewed (Platelike atelectasis in the lingula.) Assessment and Plan Plan: Impression: #1 Bibasilar pneumonia, suspect community-acquired, complicated by influenza B. #2 Acute hypoxic respiratory failure secondary to above. #3 Influenza B infection. #4 Severe hyponatremia secondary to dehydration. #5 Mild rhabdomyolysis secondary to severe dehydration. #6 Chronic and ongoing tobacco dependence. #7 Hepatitis C. #8 Daily alcohol use. Plan: The patient was seen and evaluated by Dr. Richards. His CAT scan, chest x-ray and labs were all reviewed. We will continue with [facility] per ID recommendations for concerns regarding possible staph aureus pneumonia as well as potential MRSA pneumonia. We'll continue Tamiflu. We'll continue to monitor the patient closely here in the intensive care unit as his sodium was corrected quicker than guideline recommendations. He remains on the CIWA protocol and will be observed for signs of delirium tremens. He is educated regarding the importance of complete smoking cessation. A NicoDerm patch will be offered. We will continue to follow and make further recommendations based on his clinical status.
[2016-08-09] MEDS: NICOTINE 14MG/24HR PATCH TRANSDERM SCH (12:46)
--- NOTE | 2016-08-09 14:59 | P.PN ---
Subjective Principal diagnosis: Influenza B, pneumonia Patient is a 56-year-old male, patient of Dr. Yanni Leone in the outpatient setting, with medical history significant for hepatitis C, colitis, alcohol abuse, and nicotine dependence. Patient admitted through the emergency department with multiple complaints including nausea, fatigue, weakness, and diarrhea for approximately one week. Patient also complained of abdominal discomfort. Patient was found to have evidence of bilateral pneumonia and tested positive for influenza B. Patient was also hyponatremic with a presenting sodium of 112. Patient was transferred to the intensive care unit for further monitoring. Upon evaluation, patient states he feels a little better than yesterday. Patient complains of generalized abdominal pain exacerbated with coughing. Patient reports increased shortness of breath with activity. Patient reports nonproductive cough. Denies chills, nausea, vomiting , or chest pain. Patient is passing flatus without bowel movements. Chest x- ray from this morning with evidence of worsening atelectatic changes in both lung bases. Pulmonary and infectious disease service is following patient. Objective - Vital Signs Vital signs: Vital Signs Temp 99.2 F 08/09/16 12:00 Pulse 97 08/09/16 13:00 Resp 20 08/09/16 13:00 BP 123/72 08/09/16 13:00 Pulse Ox 92 L 08/09/16 13:00 Intake & Output 08/08/16 08/09/16 08/09/16 18:59 06:59 18:59 Intake Total 300.0 1220.0 645 Output Total 875 1800 Balance -575.0 -580.0 645 Weight 77.1 kg 75.6 kg Intake: IV 1087.5 525 Ceftaroline Fosamil 600 250 mg In Sodium Chloride 0.9 % 250 ml @ 250 mls/hr IVPB Q12HR@0600,1800 [facility] Rx#:[id number] Piperacillin-Tazobactam 3 12.5 .375 gm In Dextrose/Water 1 50ml.bag @ 12.5 mls/hr IVPB Q8HR [facility] Rx#: [id number] Sodium Chloride 0.9% 1, 825 525 000 ml @ 75 mls/hr IV . [id number] [facility] Rx#:[id number] Intake, IV Titration 300.0 12.5 Amount Piperacillin-Tazobactam 3 25.0 12.5 .375 gm In Dextrose/Water 1 50ml.bag @ 12.5 mls/hr IVPB Q8HR [facility] Rx#: [id number] Sodium Chloride 0.9% 1, 275 000 ml @ 75 mls/hr IV . [id number] [facility] Rx#:[id number] Oral 120 120 Output: Urine 875 1800 Other: Voiding Method Urinal Urinal Urinal # Voids 1 1 1 # Bowel Movements 1 - Exam GENERAL: Pt awake and alert, well-nourished, in no acute distress. HEAD: Atraumatic, normocephalic. EYES: Pupils equal, round, and reactive to light, extraocular movements intact, sclera anicteric, conjunctiva are normal. ENT: Oropharynx clear without exudates. Moist mucous membranes. NECK:Supple without lymphadenopathy or JVD. LUNGS: Breath sounds diminished with scattered rhonchi bilaterally. HEART: Heart S1, S2, no S3 or S4. Regular rate and rhythm. No murmurs, rubs or gallops. ABDOMEN: Soft, mild generalized tenderness, nondistended, normoactive bowel sounds. No guarding, no rebound. No masses or organomegaly appreciated. EXTREMITIES: Palpable peripheral pulses. No edema, clubbing or cyanosis. No calf tenderness. NEUROLOGICAL: Pt oriented x 3. No focal deficits noted. Strength and sensation grossly intact. PSYCH: Normal mood, normal affect. SKIN: Warm, dry, intact. Normal turgor. No rashes or lesions. - Labs CBC & Chem 7: 08/09/16 04:13 08/09/16 04:13 Labs: Abnormal Lab Results - Last 24 Hours (Table) 08/08/16 08/08/16 08/09/16 Range/Units 14:30 20:27 04:13 WBC 11.2 H (3.8-10.6) k/uL Neutrophils # 9.9 H (1.3-7.7) k/uL Lymphocytes # 0.6 L (1.0-4.8) k/uL Sodium 121 L 129 L (137-145) mmol/L Chloride 87 L (98-107) mmol/L BUN 8 L (9-20) mg/dL Creatinine 0.55 L (0.66-1.25) mg/dL Glucose 134 H (74-99) mg/dL Calcium 7.9 L (8.4-10.2) mg/dL 08/09/16 Range/Units 04:13 WBC (3.8-10.6) k/uL Neutrophils # (1.3-7.7) k/uL Lymphocytes # (1.0-4.8) k/uL Sodium 130 L (137-145) mmol/L Chloride 95 L (98-107) mmol/L BUN (9-20) mg/dL Creatinine 0.60 L (0.66-1.25) mg/dL Glucose 110 H (74-99) mg/dL Calcium 8.3 L (8.4-10.2) mg/dL Assessment and Plan Plan: Impression: 1. Acute metabolic and toxic encephalopathy secondary to dehydration as well as infection, present on admission, improved. 2. Acute influenza B infection. 3. Bilateral pneumonia, community-acquired. 4. Elevated d-dimer. CT angiogram negative for pulmonary embolism. 5. Elevated CPK level with after my lysis, present on admission, improved suspect secondary to dehydration. 6. History of hepatitis C. 7. Hyponatremia likely hypovolemic as well as secondary to inflammatory infection, improving. 8. Acute hypoxic respiratory failure, present on admission, secondary to pneumonia. 9. Abdominal pain. 10. Nicotine dependence. 11. Alcohol abuse. Plan: Continue to monitor patient. Continue IV antibiotics per infectious disease recommendations. Continue current medications. Check amylase and lipase. Continue serial protocol for possible delirium tremens. Smoking cessation encouraged. Continue to follow with pulmonary and infectious disease service. The above impression and plan have been discussed and directed by Dr. Leone. Katlyn GREER acting as scribe for Dr. Leone.
[2016-08-09 15:06] LABS: Amylase 44 U/L (30-110)
[2016-08-09] MEDS: IPRATROPIUM-ALBUTEROL 3 ML NEB INHALATION PRN ×2 (15:59→19:52)
[2016-08-09] MEDS: ACETAMINOPHEN TAB 325 MG TAB PO PRN ×2 (16:01→21:12)
--- NOTE | 2016-08-09 19:45 | P.PN ---
Subjective Principal diagnosis: Shortness of breath 56-year-old male who is a tube carrier presents to the emergency center with a 10 day history of feeling poorly. He's had difficulty with fevers and chills that have come and gone. He's had significant and progressive fatigue. He felt like he may have had the flu with some body aches as well as cough, scant sputum production and some nasal congestion. As he continued to weaken he finally presented to emergency center where he was out evidence of hypoxia and significant shortness of breath. Chest x-ray was abnormal and The Patient Was Admitted to the Intensive Care Unit Because of the Needs for BiPAP for Respiratory Support. Because of the Significant Pneumonia and Influenza the Infectious Diseases Consultation Was Requested. At this time this pleasant gentleman relates he still feels very poorly. He finds the BiPAP very uncomfortable. Follow he is trying to tolerated because he understands its importance. He is not a detailed historian at this time. It is noted that he had significant hyponatremia at admission that is now improving. There is notation that he has had treatment for hepatitis C that it does not appear that this is current. Patient is now feeling considerably better. He is now on high flow oxygen 8 L with saturation about 90%. He is less short of breath. He is still showing some anxiety. Is being monitored per the [facility] protocol. Remains afebrile. Objective - Vital Signs Vital signs: Vital Signs Temp 99.3 F 08/09/16 16:00 Pulse 86 08/09/16 19:00 Resp 28 H 08/09/16 19:00 BP 135/73 08/09/16 19:00 Pulse Ox 93 L 08/09/16 19:00 Intake & Output 08/09/16 08/09/16 08/10/16 06:59 18:59 06:59 Intake Total 1220.0 1270 75 Output Total 1800 Balance -580.0 1270 75 Weight 75.6 kg Intake: IV 1087.5 900 75 Ceftaroline Fosamil 600 250 mg In Sodium Chloride 0.9 % 250 ml @ 250 mls/hr IVPB Q12HR@0600,1800 [facility] Rx#:[id number] Piperacillin-Tazobactam 3 12.5 .375 gm In Dextrose/Water 1 50ml.bag @ 12.5 mls/hr IVPB Q8HR [facility] Rx#: [id number] Sodium Chloride 0.9% 1, 825 900 75 000 ml @ 75 mls/hr IV . [id number] [facility] Rx#:[id number] Intake, IV Titration 12.5 250 Amount Ceftaroline Fosamil 600 250 mg In Sodium Chloride 0.9 % 250 ml @ 250 mls/hr IVPB Q12HR@0600,1800 [facility] Rx#:[id number] Piperacillin-Tazobactam 3 12.5 .375 gm In Dextrose/Water 1 50ml.bag @ 12.5 mls/hr IVPB Q8HR [facility] Rx#: [id number] Oral 120 120 Output: Urine 1800 Other: Voiding Method Urinal Urinal # Voids 1 1 # Bowel Movements 1 - Exam 56-year-old male who appears to have significant outside exposure by his skin tone, is not feeling well and is less short of breath. BiPAP removed. High flow oxygen with marginal saturations. HEENT: Anicteric conjunctiva are pink and moist nasal mucosa grossly intact without significant lesions, there is no thrush. Neck: The neck is supple without significant lymphadenopathy or thyromegaly. Lungs: Symmetrical air entry is noted. Coarse crackles at the lung yeung is noted. There are crackles at the bases. No egophony or dullness was noted Heart: Tachycardic but normal rhythm with an audible S1-S2, no S3 no S4. There is no significant murmur click or rub, PMI was nondisplaced. Abdomen: Thin, Positive bowel sounds soft and nontender without palpable masses or organomegaly. There was no guarding or rebound. Extremities: The upper extremities have excellent pulses they are symmetric, no significant petechiae or telangiectasia. No splinter hemorrhages were noted. The lower extremities are free from significant edema. The peripheral pulses were 2+ and symmetric. Neuro: Awake alert oriented to person place and time. There are no acute new gross focal sensory motor deficits. Skin is without rash lesions or breakdown - Labs CBC & Chem 7: 08/09/16 04:13 08/09/16 04:13 Labs: Abnormal Lab Results - Last 24 Hours (Table) 08/08/16 08/09/16 08/09/16 Range/Units 20:27 04:13 04:13 WBC 11.2 H (3.8-10.6) k/uL Neutrophils # 9.9 H (1.3-7.7) k/uL Lymphocytes # 0.6 L (1.0-4.8) k/uL Sodium 129 L 130 L (137-145) mmol/L Chloride 95 L (98-107) mmol/L Creatinine 0.60 L (0.66-1.25) mg/dL Glucose 110 H (74-99) mg/dL Calcium 8.3 L (8.4-10.2) mg/dL Laboratory Results WBC 11.2 k/uL (3.8-10.6) H 08/09/16 04:13 RBC 4.41 m/uL (4.30-5.90) 08/09/16 04:13 Hgb 14.9 gm/dL (13.0-17.5) 08/09/16 04:13 Hct 43.6 % (39.0-53.0) 08/09/16 04:13 MCV 99.0 fL (80.0-100.0) 08/09/16 04:13 MCH 33.8 pg (25.0-35.0) 08/09/16 04:13 MCHC 34.1 g/dL (31.0-37.0) 08/09/16 04:13 RDW 12.6 % (11.5-15.5) 08/09/16 04:13 Plt Count 154 k/uL (150-450) 08/09/16 04:13 Neutrophils % 88 % 08/09/16 04:13 Neutrophils % (Manual) 57.0 % 08/08/16 08:55 Band Neutrophils % 29.0 % 08/08/16 08:55 Lymphocytes % 5 % 08/09/16 04:13 Lymphocytes % (Manual) 3.5 % 08/08/16 08:55 Monocytes % 5 % 08/09/16 04:13 Monocytes % (Manual) 7.0 % 08/08/16 08:55 Eosinophils % 0 % 08/09/16 04:13 Basophils % 0 % 08/09/16 04:13 Metamyelocytes % 3.5 % 08/08/16 08:55 Neutrophils # 9.9 k/uL (1.3-7.7) H 08/09/16 04:13 Neutrophils # (Manual) 8.3 k/uL (1.3-7.7) H 08/08/16 08:55 Lymphocytes # 0.6 k/uL (1.0-4.8) L 08/09/16 04:13 Lymphocytes # (Manual) 0.3 k/uL (1.0-4.8) L 08/08/16 08:55 Monocytes # 0.5 k/uL (0-1.0) 08/09/16 04:13 Monocytes # (Manual) 0.7 k/uL (0-1.0) 08/08/16 08:55 Eosinophils # 0.0 k/uL (0-0.7) 08/09/16 04:13 Basophils # 0.0 k/uL (0-0.2) 08/09/16 04:13 Nucleated RBCs 0 /100 WBC (0-0) 08/08/16 08:55 Manual Slide Review Performed 08/08/16 08:55 Poikilocytosis (manual Present 08/08/16 08:55 PT 10.5 sec (9.0-12.0) 08/08/16 08:55 INR 1.0 (<1.1) 08/08/16 08:55 APTT 38.9 sec (22.0-30.0) H 08/08/16 08:55 D-Dimer 1.06 mg/L FEU (<0.60) H 08/08/16 08:55 Sample Site lbrac 08/08/16 09:32 ABG pH 7.51 (7.35-7.45) H 08/08/16 09:32 ABG pCO2 31 mmHg (35-45) L 08/08/16 09:32 ABG pO2 60 mmHg (83-108) L 08/08/16 09:32 ABG HCO3 24 mmol/L (21-25) 08/08/16 09:32 ABG Total CO2 25 mmol/L (19-24) H 08/08/16 09:32 ABG O2 Saturation 93.0 % (94-97) L 08/08/16 09:32 ABG Base Excess 1.5 mmol/L 08/08/16 09:32 FiO2 55 % 08/08/16 09:32 Sodium 130 mmol/L (137-145) L 08/09/16 04:13 Potassium 4.6 mmol/L (3.5-5.1) 08/09/16 04:13 Chloride 95 mmol/L (98-107) L 08/09/16 04:13 Carbon Dioxide 24 mmol/L (22-30) 08/09/16 04:13 Anion Gap 11 mmol/L 08/09/16 04:13 BUN 9 mg/dL (9-20) 08/09/16 04:13 Creatinine 0.60 mg/dL (0.66-1.25) L 08/09/16 04:13 Est GFR (MDRD) Af Amer >60 (>60 ml/min/1.73 sqM) 08/09/16 04:13 Est GFR (MDRD) Non-Af >60 (>60 ml/min/1.73 sqM) 08/09/16 04:13 Glucose 110 mg/dL (74-99) H 08/09/16 04:13 POC Glucose (mg/dL) 151 mg/dL (75-99) H 08/08/16 14:02 POC Glu Disability Program Navigator ID Manny Andrés 08/08/16 14:02 Plasma Lactic Acid Paramjit 0.8 mmol/L (0.7-2.0) 08/08/16 08:58 Calcium 8.3 mg/dL (8.4-10.2) L 08/09/16 04:13 Phosphorus 3.0 mg/dL (2.5-4.5) 08/09/16 04:13 Magnesium 2.0 mg/dL (1.6-2.3) 08/09/16 04:13 Total Bilirubin 0.6 mg/dL (0.2-1.3) 08/08/16 08:55 AST 88 U/L (17-59) H 08/08/16 08:55 ALT 47 U/L (21-72) 08/08/16 08:55 Alkaline Phosphatase 68 U/L (38-126) 08/08/16 08:55 Total Creatine Kinase 1989 U/L (55-170) H 08/08/16 08:55 CK-MB (CK-2) 4.9 ng/mL (0.0-2.4) H* 08/08/16 08:55 CK-MB (CK-2) Rel Index 08/08/16 08:55 Troponin I <0.012 ng/mL (0.000-0.034) 08/08/16 08:55 NT-Pro-B Natriuret Pep 162 pg/mL 08/08/16 08:55 Total Protein 6.6 g/dL (6.3-8.2) 08/08/16 08:55 Albumin 3.9 g/dL (3.5-5.0) 08/08/16 08:55 Amylase 44 U/L (30-110) 08/09/16 04:13 Lipase 57 U/L (23-300) 08/09/16 04:13 Influenza Type A RNA Not Detected (Not Detectd) 08/08/16 08:55 Influenza Type B (PCR) Detected (Not Detectd) H 08/08/16 08:55 Microbiology 08/08/16 08:55 Blood Blood Culture - Preliminary No Growth after 24 hours - Imaging and Cardiology Chest x-ray: report reviewed (Worsening infiltrates bibasilar area) Assessment and Plan (1) Influenza B Narrative/Plan: 56-year-old male who was a tube carrier presents to hospital with a 10 day history of progressive illness. He has evidence of respiratory failure required BiPAP support for his respiratory failure. Test reveals evidence of his positive status for influenza B. And Tamiflu has begun. The patient has evidence of significant pneumonia also on his chest x-ray. Because of concern would be to staph aureus pneumonia. With this antibiotic therapy will include Ceftaroline to ensure were treating for staph as well as potential MRSA pneumonia in this patient that has extensive outside contact with the community. Patient had significant hyponatremia unclear etiology except pneumonia certainly can cause hyponatremia he is responding well to current intervention. He has mild altered mental status that is likely due to the hyponatremia. Expect this to rapidly improve now that his sodium has improved further to 130. Not having high-grade fever at this time. Patient relates to a history of extensive alcohol intake on a daily basis. Is being monitored closely for alcohol withdrawal also. Status: Acute (2) Pneumonia Status: Acute (3) Hyponatremia Status: Acute (4) Altered mental status Status: Acute
[2016-08-10 03:46] LABS: Basophils % (A) 0 %; CH 35.3; CHCM 35.2; Eosinophils # (A) 0.1 k/uL (0-0.7); Eosinophils % (A) 1 %; HCT 41.4 % (39.0-53.0); HDW 2.32; HGB 14.2 gm/dL (13.0-17.5); Luc # (Auto) 0.17; Luc % (Auto) 3; Lymphocytes # (A) 0.3 k/uL (1.0-4.8); Lymphocytes % (A) 5 %; MCH 34.5 pg (25.0-35.0); MCHC 34.2 g/dL (31.0-37.0); MCV 100.8 fL (80.0-100.0); Monocytes # (A) 0.4 k/uL (0-1.0); Monocytes % (A) 5 %; Neutrophils # (A) 5.9 k/uL (1.3-7.7); Neutrophils % (A) 86 %; RBC 4.11 m/uL (4.30-5.90); RDW 12.7 % (11.5-15.5); WBC 6.9 k/uL (3.8-10.6)
[2016-08-10 04:08] LABS: Anion Gap 7 mmol/L; Blood Urea Nitrogen 5 mg/dL (9-20); Calcium 7.7 mg/dL (8.4-10.2); Carbon Dioxide 26 mmol/L (22-30); Chloride 91 mmol/L (98-107); Glucose 98 mg/dL (74-99); Magnesium 1.7 mg/dL (1.6-2.3); Non-African American GFR(MDRD) >60 (>60 ml/min/1.73 sqM); Phosphorous 2.4 mg/dL (2.5-4.5); Potassium 4.5 mmol/L (3.5-5.1); Sodium 124 mmol/L (137-145)
[2016-08-10] MEDS ORDERED: Phosphorus Replacement Protoco 1 EACH MISC MISCELLANE PRN (04:18)
[2016-08-10] MEDS ORDERED: Magnesium Replacement Protocol 1 EACH MISC MISCELLANE PRN (04:18)
[2016-08-10] MEDS ORDERED: SODIUM PHOSPHATE 10 MMOL in SODIUM CHLORIDE 0.9% 250 ML IVPB ONE (04:18)
[2016-08-10] MEDS: MAGNESIUM SULFATE-D5W PMX 1 GM in DEXTROSE/WATER 1 100ML.BAG IVPB SCH ×2 (05:06→08:44)
[2016-08-10] MEDS: ALPRAZolam 0.25 MG TAB PO PRN (05:22)
[2016-08-10] MEDS: SODIUM CHLORIDE 0.9% 1,000 ML IV SCH ×2 (05:24→20:33)
[2016-08-10] MEDS: CEFTAROLINE FOSAMIL 600 MG in SODIUM CHLORIDE 0.9% 250 ML IVPB SCH ×2 (06:13→18:24)
[2016-08-10] MEDS: IPRATROPIUM-ALBUTEROL 3 ML NEB INHALATION PRN ×4 (08:13→19:22)
[2016-08-10] MEDS: NICOTINE 14MG/24HR PATCH TRANSDERM SCH ×2 (08:44→10:56)
[2016-08-10] MEDS: OSELTAMIVIR 75 MG CAP PO SCH ×2 (08:44→20:33)
[2016-08-10] MEDS: PANTOPRAZOLE 40 MG TABLET PO SCH (08:44)
[2016-08-10] MEDS: CYANOCOBALAMIN 500 MCG TAB PO SCH (08:45)
--- NOTE | 2016-08-10 09:32 | XR ---
EXAMINATION TYPE: XR chest 1V DATE OF EXAM: 08/10/2016 6:21 AM COMPARISON: Prior chest x-ray 10 August 2016 HISTORY: Shortness of breath TECHNIQUE: Single frontal view of the chest is obtained. FINDINGS: Patchy basilar density is again noted. Interstitium is increased. No evident pneumothorax or pleural effusion. Cardiomediastinal silhouette, pulmonary vascularity and ramon are stable. IMPRESSION: Basilar atelectasis, correlate to exclude pneumonia. Findings could be indicative of aty pical presentation of pulmonary venous hypertension and interstitial edema, correlate. Follow-up is r ecommended.
--- NOTE | 2016-08-10 10:58 | P.PN ---
Subjective Principal diagnosis: Influenza pneumonia, hyponatremia. This is a very pleasant 56-year-old gentleman who follows with Dr. Leone as his primary care physician. He has a history of hepatitis C, chronic and ongoing tobacco dependence him a multiple hernia repairs. Approximately 1-1/2 weeks ago he started having flulike symptoms with nausea and fatigue weakness and diarrhea. He was seen at his PCPs office and was instructed to use over-the- counter cold and flu medications. He continued to worsen and presented here to the emergency room yesterday for the same. He was having significant abdominal discomfort and ultrasound revealed no acute abdominal abnormalities. A CT angiogram was performed based on his shortness of breath and complaints of rib pain. Arterial blood gases revealed a PaO2 of 60, pCO2 of 31 and a pH of 7.5 one a 55% FiO2. There is no evidence of pulmonary embolism. There were bilateral pulmonary airspace and interstitial pneumonic infiltrates with some consolidation in the posterior lung bases. He was also found to be influenza B positive. His presenting sodium was 112. He was initiated on 3% normal saline at 50 MLS per hour for 3 hours per the emergency room orders. His current creatinine sodium is up to 130 area he is seen today in consultation in the intensive care unit. He is awake and alert in no acute distress. He denies any confusion, dizziness or lightheadedness. He remains quite weak. He did have a CPK level of 1989. He did tolerate breakfast without any further nausea. No diarrhea currently. He is requiring 10 L of high flow nasal cannula to maintain O2 saturations in the low 90s. He's been hemodynamically stable. Not on any pressors. He is afebrile. No significant leukocytosis. The patient is seen again today 08/10/2016 in follow-up. He he is awake and alert in no acute distress. He is breathing easier today as compared to yesterday. He feels slightly stronger. His C. difficile screen was negative. His sodium is back to 124. No leukocytosis. He continues to require 12 L of high flow nasal cannula to maintain O2 saturations in the 90s. Slightly tachycardic. His chest x-ray continues to show basilar atelectasis and some pulmonary venous hypertension and interstitial edema. He has been seen and evaluated by infectious disease and is currently on Ceftaroline. He also remains in the [facility] protocol for concerns regarding possible delirium tremens Objective - Vital Signs Vital signs: Vital Signs Temp 99.7 F H 08/10/16 08:00 Pulse 107 H 08/10/16 10:00 Resp 27 H 08/10/16 10:00 BP 152/75 08/10/16 10:00 Pulse Ox 93 L 08/10/16 10:00 Intake & Output 08/09/16 08/10/16 08/10/16 18:59 06:59 18:59 Intake Total 1270 1050 625 Output Total 600 2 Balance 1270 450 623 Weight 75.6 kg 77 kg Intake: IV 900 1050 525 Ceftaroline Fosamil 600 250 mg In Sodium Chloride 0.9 % 250 ml @ 250 mls/hr IVPB Q12HR@0600,1800 [facility] Rx#:[id number] Magnesium Sulfate-D5w Pmx 100 1 gm In Dextrose/Water 1 100ml.bag @ 100 mls/hr IVPB Q1H [facility] Rx#: [id number] Sodium Chloride 0.9% 1, 900 825 150 000 ml @ 75 mls/hr IV . [id number] [facility] Rx#:[id number] Sodium Phosphate 10 mmol 125 125 In Sodium Chloride 0.9% 250 ml @ 125 mls/hr IVPB ONCE ONE Rx#:[id number] Intake, IV Titration 250 100 Amount Ceftaroline Fosamil 600 250 mg In Sodium Chloride 0.9 % 250 ml @ 250 mls/hr IVPB Q12HR@0600,1800 [facility] Rx#:[id number] Magnesium Sulfate-D5w Pmx 100 1 gm In Dextrose/Water 1 100ml.bag @ 100 mls/hr IVPB Q1H [facility] Rx#: [id number] Oral 120 Output: Urine 600 Stool 1 Urine/Stool Mix 1 Other: Voiding Method Urinal Urinal Toilet Urinal # Voids 1 1 # Bowel Movements 1 - Exam GENERAL EXAM: Alert, active, comfortable in no apparent distress. HEAD: Normocephalic. EYES: Normal reaction of pupils, equal size. NOSE: Clear with pink turbinates. THROAT: No erythema or exudates. NECK: No masses, no JVD. CHEST: No chest wall deformity. LUNGS: Bibasilar crackles posteriorly. Diminished. CVS: S1 and S2 normal with no audible murmurs, regular rhythm. ABDOMEN: No hepatosplenomegaly, normal bowel sounds, no guarding or rigidity. SPINE: No scoliosis or deformity SKIN: No rashes CENTRAL NERVOUS SYSTEM: No focal deficits, tone is normal in all 4 extremities. Extremities: There is no significant peripheral edema. No clubbing, no cyanosis. Peripheral pulses are intact. - Labs CBC & Chem 7: 08/10/16 03:30 08/10/16 03:30 Labs: Abnormal Lab Results - Last 24 Hours (Table) 08/10/16 08/10/16 Range/Units 03:30 03:30 RBC 4.11 L (4.30-5.90) m/uL MCV 100.8 H (80.0-100.0) fL Plt Count 148 L (150-450) k/uL Lymphocytes # 0.3 L (1.0-4.8) k/uL Sodium 124 L (137-145) mmol/L Chloride 91 L (98-107) mmol/L BUN 5 L (9-20) mg/dL Creatinine 0.60 L (0.66-1.25) mg/dL Calcium 7.7 L (8.4-10.2) mg/dL Phosphorus 2.4 L (2.5-4.5) mg/dL Assessment and Plan Plan: Impression: #1 Bibasilar pneumonia, suspect community-acquired, complicated by influenza B. #2 Acute hypoxic respiratory failure secondary to above. #3 Influenza B infection. #4 Severe hyponatremia secondary to dehydration. #5 Mild rhabdomyolysis secondary to severe dehydration. #6 Chronic and ongoing tobacco dependence. #7 Hepatitis C. #8 Daily alcohol use. Plan: The patient was seen and evaluated by Dr. Richards. His chest x-ray and labs were all reviewed. We will continue with Teflaro per ID recommendations for concerns regarding possible staph aureus pneumonia as well as potential MRSA pneumonia. We'll continue Tamiflu. He could be transferred out of the intensive care unit later this afternoon if he continues to do well. He remains on the [facility]WA protocol and will be observed for signs of delirium tremens. He is educated regarding the importance of complete smoking cessation. A NicoDerm patch will be offered. We will continue to follow and make further recommendations based on his clinical status.
--- NOTE | 2016-08-10 12:34 | P.PN ---
Subjective Principal diagnosis: Influenza B, pneumonia Patient is a 56-year-old male, patient of Dr. Cornell Leone in the outpatient setting, with medical history significant for hepatitis C, colitis, alcohol abuse, and nicotine dependence. Patient admitted through the emergency department with multiple complaints including nausea, fatigue, weakness, and diarrhea for approximately one week. Patient also complained of abdominal discomfort. Patient was found to have evidence of bilateral pneumonia and tested positive for influenza B. Patient was also hyponatremic with a presenting sodium of 112. Patient was transferred to the intensive care unit for further monitoring. Upon evaluation, patient has no specific complaints. Patient denies increased shortness of breath, abdominal pain, nausea, vomiting, or chest pain. Patient is passing flatus with bowel movements. patient is currently on 15 L high flow nasal cannula and is observed to drop his oxygen level to low 80s with minimal ambulation to bathroom. Per staff nurse, patient does have episodes of confusion and apparently undressed himself in the middle of the night and went to the bathroom without asking for assistance. Patient did receive Ativan IV per CIWA protocol last night. Chest x-ray from this morning with evidence of basilar atelectasis and some pulmonary venous hypertension and interstitial edema. Patient did have a temperature of 102.7 at 9 PM last night. Patient is tachycardic on the monitor with heart rate in the low 100s. Oxygen saturation 98% on 15 L high flow nasal cannula. Leukocytosis resolved. Sodium decreased to 124. Phosphorus 2.4. Magnesium 1.7. C. difficile negative. Pulmonary service and infectious disease service is following patient, notes reviewed. Objective - Vital Signs Vital signs: Vital Signs Temp 99.7 F H 08/10/16 08:00 Pulse 112 H 08/10/16 11:33 Resp 27 H 08/10/16 10:00 BP 152/75 08/10/16 10:00 Pulse Ox 93 L 08/10/16 10:00 Intake & Output 08/09/16 08/10/16 08/10/16 18:59 06:59 18:59 Intake Total 1270 1050 625 Output Total 600 2 Balance 1270 450 623 Weight 75.6 kg 77 kg Intake: IV 900 1050 525 Ceftaroline Fosamil 600 250 mg In Sodium Chloride 0.9 % 250 ml @ 250 mls/hr IVPB Q12HR@0600,1800 [facility] Rx#:[id number] Magnesium Sulfate-D5w Pmx 100 1 gm In Dextrose/Water 1 100ml.bag @ 100 mls/hr IVPB Q1H [facility] Rx#: [id number] Sodium Chloride 0.9% 1, 900 825 150 000 ml @ 75 mls/hr IV . [id number] [facility] Rx#:[id number] Sodium Phosphate 10 mmol 125 125 In Sodium Chloride 0.9% 250 ml @ 125 mls/hr IVPB ONCE ONE Rx#:[id number] Intake, IV Titration 250 100 Amount Ceftaroline Fosamil 600 250 mg In Sodium Chloride 0.9 % 250 ml @ 250 mls/hr IVPB Q12HR@0600,1800 [facility] Rx#:[id number] Magnesium Sulfate-D5w Pmx 100 1 gm In Dextrose/Water 1 100ml.bag @ 100 mls/hr IVPB Q1H [facility] Rx#: [id number] Oral 120 Output: Urine 600 Stool 1 Urine/Stool Mix 1 Other: Voiding Method Urinal Urinal Toilet Urinal # Voids 1 1 # Bowel Movements 1 - Exam GENERAL: Pt awake and alert, well-nourished, in no acute distress. HEAD: Atraumatic, normocephalic. EYES: Pupils equal, round, and reactive to light, extraocular movements intact, sclera anicteric, conjunctiva are normal. ENT: Oropharynx clear without exudates. Moist mucous membranes. NECK:Supple without lymphadenopathy or JVD. LUNGS: Breath sounds diminished with scattered rhonchi bilaterally. HEART: Heart S1, S2, no S3 or S4. Regular rate and rhythm. No murmurs, rubs or gallops. ABDOMEN: Soft, nontender, nondistended, normoactive bowel sounds. No guarding, no rebound. No masses or organomegaly appreciated. EXTREMITIES: Palpable peripheral pulses. No edema, clubbing or cyanosis. No calf tenderness. NEUROLOGICAL: Pt oriented x 3. No focal deficits noted. Strength and sensation grossly intact. PSYCH: Normal mood, normal affect. SKIN: Warm, dry, intact. Normal turgor. No rashes or lesions. - Labs CBC & Chem 7: 08/10/16 03:30 08/10/16 03:30 Labs: Abnormal Lab Results - Last 24 Hours (Table) 08/10/16 08/10/16 Range/Units 03:30 03:30 RBC 4.11 L (4.30-5.90) m/uL MCV 100.8 H (80.0-100.0) fL Plt Count 148 L (150-450) k/uL Lymphocytes # 0.3 L (1.0-4.8) k/uL Sodium 124 L (137-145) mmol/L Chloride 91 L (98-107) mmol/L BUN 5 L (9-20) mg/dL Creatinine 0.60 L (0.66-1.25) mg/dL Calcium 7.7 L (8.4-10.2) mg/dL Phosphorus 2.4 L (2.5-4.5) mg/dL Assessment and Plan Plan: Impression: 1. Acute metabolic and toxic encephalopathy secondary to dehydration as well as infection, present on admission, improved. 2. Acute influenza B infection. 3. Bilateral pneumonia, community-acquired. 4. Elevated d-dimer. CT angiogram negative for pulmonary embolism. 5. Elevated CPK level with after my lysis, present on admission, improved suspect secondary to dehydration. 6. History of hepatitis C. 7. Hyponatremia likely hypovolemic as well as secondary to inflammatory infection. 8. Acute hypoxic respiratory failure, present on admission, secondary to pneumonia. 9. Abdominal pain, resolved. 10. Nicotine dependence. 11. Alcohol abuse. Plan: Continue to monitor patient. Continue IV antibiotics per infectious disease recommendations. Continue current medications. Continue CIWA protocol for possible delirium tremens. Smoking cessation encouraged. Continue to follow with pulmonary and infectious disease service. The above impression and plan have been discussed and directed by Dr. Leone. Katlyn GREER acting as scribe for Dr. Leone.
--- NOTE | 2016-08-10 21:54 | P.PN ---
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 He's had difficulty with fevers and chills that have come and gone. He's had significant and progressive fatigue. He felt like he may have had the flu with some body aches as well as cough, scant sputum production and some nasal congestion. As he continued to weaken he finally presented to emergency center where he was out evidence of hypoxia and significant shortness of breath. Chest x-ray was abnormal and The Patient Was Admitted to the Intensive Care Unit Because of the Needs for BiPAP for Respiratory Support. Because of the Significant Pneumonia and Influenza the Infectious Diseases Consultation Was Requested. At this time this pleasant gentleman relates he still feels very poorly. He finds the BiPAP very uncomfortable. Follow he is trying to tolerated because he understands its importance. He is not a detailed historian at this time. It is noted that he had significant hyponatremia at admission that is now improving. There is notation that he has had treatment for hepatitis C that it does not appear that this is current. Patient is now feeling considerably better. He is now on high flow oxygen 10 L with saturation about 90%. He is less short of breath. He is still showing some anxiety. Is being monitored per the [facility] protocol. Did have a temperature today of 102.7 now improved to 97.2. Was having some loose stool and C. difficile toxin testing was negative. Objective - Vital Signs Vital signs: Vital Signs Temp 98.5 F 08/10/16 20:00 Pulse 94 08/10/16 21:00 Resp 24 08/10/16 21:00 BP 140/80 08/10/16 21:00 Pulse Ox 95 08/10/16 21:00 Intake & Output 08/10/16 08/10/16 08/11/16 06:59 18:59 06:59 Intake Total 1050 1225 475 Output Total 600 2 Balance 450 1223 475 Weight 77 kg Intake: IV 1050 1125 475 Ceftaroline Fosamil 600 250 250 mg In Sodium Chloride 0.9 % 250 ml @ 250 mls/hr IVPB Q12HR@0600,1800 [facility] Rx#:[id number] Magnesium Sulfate-D5w Pmx 100 1 gm In Dextrose/Water 1 100ml.bag @ 100 mls/hr IVPB Q1H [facility] Rx#: [id number] Sodium Chloride 0.9% 1, 825 750 225 000 ml @ 75 mls/hr IV . [id number] [facility] Rx#:[id number] Sodium Phosphate 10 mmol 125 125 In Sodium Chloride 0.9% 250 ml @ 125 mls/hr IVPB ONCE ONE Rx#:[id number] Intake, IV Titration 100 Amount Magnesium Sulfate-D5w Pmx 100 1 gm In Dextrose/Water 1 100ml.bag @ 100 mls/hr IVPB Q1H [facility] Rx#: [id number] Output: Urine 600 Stool 1 Urine/Stool Mix 1 Other: Voiding Method Urinal Toilet Toilet # Voids 1 - Exam 56-year-old male who appears to have significant outside exposure by his skin tone, is not feeling well and is less short of breath. BiPAP removed. High flow oxygen with marginal saturations. HEENT: Anicteric conjunctiva are pink and moist nasal mucosa grossly intact without significant lesions, there is no thrush. Neck: The neck is supple without significant lymphadenopathy or thyromegaly. Lungs: Symmetrical air entry is noted. Coarse crackles at the lung yeung is noted. There are crackles at the bases. No egophony or dullness was noted Heart: Tachycardic but normal rhythm with an audible S1-S2, no S3 no S4. There is no significant murmur click or rub, PMI was nondisplaced. Abdomen: Thin, Positive bowel sounds soft and nontender without palpable masses or organomegaly. There was no guarding or rebound. Extremities: The upper extremities have excellent pulses they are symmetric, no significant petechiae or telangiectasia. No splinter hemorrhages were noted. The lower extremities are free from significant edema. The peripheral pulses were 2+ and symmetric. Neuro: Awake alert oriented to person place and time. There are no acute new gross focal sensory motor deficits. Skin is without rash lesions or breakdown - Labs CBC & Chem 7: 08/10/16 03:30 08/10/16 03:30 Labs: Abnormal Lab Results - Last 24 Hours (Table) 08/10/16 08/10/16 Range/Units 03:30 03:30 RBC 4.11 L (4.30-5.90) m/uL MCV 100.8 H (80.0-100.0) fL Plt Count 148 L (150-450) k/uL Lymphocytes # 0.3 L (1.0-4.8) k/uL Sodium 124 L (137-145) mmol/L Chloride 91 L (98-107) mmol/L BUN 5 L (9-20) mg/dL Creatinine 0.60 L (0.66-1.25) mg/dL Calcium 7.7 L (8.4-10.2) mg/dL Phosphorus 2.4 L (2.5-4.5) mg/dL Microbiology - Last 24 Hours (Table) 08/09/16 07:00 Stool Culture - Preliminary Stool Laboratory Results WBC 6.9 k/uL (3.8-10.6) 08/10/16 03:30 RBC 4.11 m/uL (4.30-5.90) L 08/10/16 03:30 Hgb 14.2 gm/dL (13.0-17.5) 08/10/16 03:30 Hct 41.4 % (39.0-53.0) 08/10/16 03:30 MCV 100.8 fL (80.0-100.0) H 08/10/16 03:30 MCH 34.5 pg (25.0-35.0) 08/10/16 03:30 MCHC 34.2 g/dL (31.0-37.0) 08/10/16 03:30 RDW 12.7 % (11.5-15.5) 08/10/16 03:30 Plt Count 148 k/uL (150-450) L 08/10/16 03:30 Neutrophils % 86 % 08/10/16 03:30 Neutrophils % (Manual) 57.0 % 08/08/16 08:55 Band Neutrophils % 29.0 % 08/08/16 08:55 Lymphocytes % 5 % 08/10/16 03:30 Lymphocytes % (Manual) 3.5 % 08/08/16 08:55 Monocytes % 5 % 08/10/16 03:30 Monocytes % (Manual) 7.0 % 08/08/16 08:55 Eosinophils % 1 % 08/10/16 03:30 Basophils % 0 % 08/10/16 03:30 Metamyelocytes % 3.5 % 08/08/16 08:55 Neutrophils # 5.9 k/uL (1.3-7.7) 08/10/16 03:30 Neutrophils # (Manual) 8.3 k/uL (1.3-7.7) H 08/08/16 08:55 Lymphocytes # 0.3 k/uL (1.0-4.8) L 08/10/16 03:30 Lymphocytes # (Manual) 0.3 k/uL (1.0-4.8) L 08/08/16 08:55 Monocytes # 0.4 k/uL (0-1.0) 08/10/16 03:30 Monocytes # (Manual) 0.7 k/uL (0-1.0) 08/08/16 08:55 Eosinophils # 0.1 k/uL (0-0.7) 08/10/16 03:30 Basophils # 0.0 k/uL (0-0.2) 08/10/16 03:30 Nucleated RBCs 0 /100 WBC (0-0) 08/08/16 08:55 Manual Slide Review Performed 08/08/16 08:55 Poikilocytosis (manual Present 08/08/16 08:55 PT 10.5 sec (9.0-12.0) 08/08/16 08:55 INR 1.0 (<1.1) 08/08/16 08:55 APTT 38.9 sec (22.0-30.0) H 08/08/16 08:55 D-Dimer 1.06 mg/L FEU (<0.60) H 08/08/16 08:55 Sample Site lbrac 08/08/16 09:32 ABG pH 7.51 (7.35-7.45) H 08/08/16 09:32 ABG pCO2 31 mmHg (35-45) L 08/08/16 09:32 ABG pO2 60 mmHg (83-108) L 08/08/16 09:32 ABG HCO3 24 mmol/L (21-25) 08/08/16 09:32 ABG Total CO2 25 mmol/L (19-24) H 08/08/16 09:32 ABG O2 Saturation 93.0 % (94-97) L 08/08/16 09:32 ABG Base Excess 1.5 mmol/L 08/08/16 09:32 FiO2 55 % 08/08/16 09:32 Sodium 124 mmol/L (137-145) L 08/10/16 03:30 Potassium 4.5 mmol/L (3.5-5.1) 08/10/16 03:30 Chloride 91 mmol/L (98-107) L 08/10/16 03:30 Carbon Dioxide 26 mmol/L (22-30) 08/10/16 03:30 Anion Gap 7 mmol/L 08/10/16 03:30 BUN 5 mg/dL (9-20) L 08/10/16 03:30 Creatinine 0.60 mg/dL (0.66-1.25) L 08/10/16 03:30 Est GFR (MDRD) Af Amer >60 (>60 ml/min/1.73 sqM) 08/10/16 03:30 Est GFR (MDRD) Non-Af >60 (>60 ml/min/1.73 sqM) 08/10/16 03:30 Glucose 98 mg/dL (74-99) 08/10/16 03:30 POC Glucose (mg/dL) 151 mg/dL (75-99) H 08/08/16 14:02 POC Glu Input Output Clerk ID Andrés Bryant 08/08/16 14:02 Plasma Lactic Acid Paramjit 0.8 mmol/L (0.7-2.0) 08/08/16 08:58 Calcium 7.7 mg/dL (8.4-10.2) L 08/10/16 03:30 Phosphorus 2.4 mg/dL (2.5-4.5) L 08/10/16 03:30 Magnesium 1.7 mg/dL (1.6-2.3) 08/10/16 03:30 Total Bilirubin 0.6 mg/dL (0.2-1.3) 08/08/16 08:55 AST 88 U/L (17-59) H 08/08/16 08:55 ALT 47 U/L (21-72) 08/08/16 08:55 Alkaline Phosphatase 68 U/L (38-126) 08/08/16 08:55 Total Creatine Kinase 1989 U/L (55-170) H 08/08/16 08:55 CK-MB (CK-2) 4.9 ng/mL (0.0-2.4) H* 08/08/16 08:55 CK-MB (CK-2) Rel Index 08/08/16 08:55 Troponin I <0.012 ng/mL (0.000-0.034) 08/08/16 08:55 NT-Pro-B Natriuret Pep 162 pg/mL 08/08/16 08:55 Total Protein 6.6 g/dL (6.3-8.2) 08/08/16 08:55 Albumin 3.9 g/dL (3.5-5.0) 08/08/16 08:55 Amylase 44 U/L (30-110) 08/09/16 04:13 Lipase 57 U/L (23-300) 08/09/16 04:13 C. 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 He has evidence of respiratory failure required BiPAP support for his respiratory failure. Test reveals evidence of his positive status for influenza B. And Tamiflu has begun. The patient has evidence of significant pneumonia also on his chest x-ray. Because of concern would be to staph aureus pneumonia. With this antibiotic therapy will include Ceftaroline to ensure were treating for staph as well as potential MRSA pneumonia in this patient that has extensive outside contact with the community. Patient had significant hyponatremia unclear etiology except pneumonia certainly can cause hyponatremia he is responding well to current intervention. He has mild altered mental status that is likely due to the hyponatremia. Sodium did decrease to 124 again today. Did have recurrent fever but it is now improved. Is on the basis of his underlying influenza and secondary pneumonia. Patient relates to a history of extensive alcohol intake on a daily basis. Is being monitored closely for alcohol withdrawal also. Status: Acute (2) Pneumonia Status: Acute (3) Hyponatremia Status: Acute (4) Altered mental status Status: Acute
[2016-08-11] MEDS: SODIUM CHLORIDE 0.9% 1,000 ML IV SCH ×3 (05:41→20:31)
[2016-08-11] MEDS: CEFTAROLINE FOSAMIL 600 MG in SODIUM CHLORIDE 0.9% 250 ML IVPB SCH ×2 (05:42→17:47)
[2016-08-11] MEDS: CYANOCOBALAMIN 500 MCG TAB PO SCH (08:04)
[2016-08-11] MEDS: OSELTAMIVIR 75 MG CAP PO SCH ×2 (08:05→23:40)
[2016-08-11] MEDS: PANTOPRAZOLE 40 MG TABLET PO SCH (08:05)
[2016-08-11] MEDS: NICOTINE 14MG/24HR PATCH TRANSDERM SCH ×2 (08:05→08:12)
[2016-08-11 08:57] LABS: Aty Lym Flag Slight; CH 35.1; CHCM 35.7; HDW 2.52; HGB 13.9 gm/dL (13.0-17.5); MCH 35.2 pg (25.0-35.0); MCHC 35.6 g/dL (31.0-37.0); MCV 98.9 fL (80.0-100.0); Mean Platelet Volume 7.9; RBC 3.94 m/uL (4.30-5.90); RDW 12.7 % (11.5-15.5); WBC 5.9 k/uL (3.8-10.6); WBC (Perox) 6.37
[2016-08-11 09:41] LABS: Anion Gap 8 mmol/L; Blood Urea Nitrogen 4 mg/dL (9-20); Calcium 7.7 mg/dL (8.4-10.2); Carbon Dioxide 27 mmol/L (22-30); Chloride 90 mmol/L (98-107); Glucose 113 mg/dL (74-99); Magnesium 1.9 mg/dL (1.6-2.3); Non-African American GFR(MDRD) >60 (>60 ml/min/1.73 sqM); Phosphorous 3.5 mg/dL (2.5-4.5); Potassium 4.2 mmol/L (3.5-5.1); Sodium 125 mmol/L (137-145)
[2016-08-11 09:49] LABS: Add Differential Manual Differential
[2016-08-11 09:51] LABS: Manual Review Performed; Nucleated Red Blood Cells 0 /100 WBC (0-0); Total Cells Counted 100
[2016-08-11 09:52] LABS: RBC Morphology Normal
--- NOTE | 2016-08-11 10:30 | P.PN ---
Subjective Principal diagnosis: Influenza pneumonia, hyponatremia. This is a very pleasant 56-year-old gentleman who follows with Dr. Leone as his primary care physician. He has a history of hepatitis C, chronic and ongoing tobacco dependence him a multiple hernia repairs. Approximately 1-1/2 weeks ago he started having flulike symptoms with nausea and fatigue weakness and diarrhea. He was seen at his PCPs office and was instructed to use over-the- counter cold and flu medications. He continued to worsen and presented here to the emergency room yesterday for the same. He was having significant abdominal discomfort and ultrasound revealed no acute abdominal abnormalities. A CT angiogram was performed based on his shortness of breath and complaints of rib pain. Arterial blood gases revealed a PaO2 of 60, pCO2 of 31 and a pH of 7.5 one a 55% FiO2. There is no evidence of pulmonary embolism. There were bilateral pulmonary airspace and interstitial pneumonic infiltrates with some consolidation in the posterior lung bases. He was also found to be influenza B positive. His presenting sodium was 112. He was initiated on 3% normal saline at 50 MLS per hour for 3 hours per the emergency room orders. His current creatinine sodium is up to 130 area he is seen today in consultation in the intensive care unit. He is awake and alert in no acute distress. He denies any confusion, dizziness or lightheadedness. He remains quite weak. He did have a CPK level of 1989. He did tolerate breakfast without any further nausea. No diarrhea currently. He is requiring 10 L of high flow nasal cannula to maintain O2 saturations in the low 90s. He's been hemodynamically stable. Not on any pressors. He is afebrile. No significant leukocytosis. The patient is seen again today 08/10/2016 in follow-up. He he is awake and alert in no acute distress. He is breathing easier today as compared to yesterday. He feels slightly stronger. His C. difficile screen was negative. His sodium is back to 124. No leukocytosis. He continues to require 12 L of high flow nasal cannula to maintain O2 saturations in the 90s. Slightly tachycardic. His chest x-ray continues to show basilar atelectasis and some pulmonary venous hypertension and interstitial edema. He has been seen and evaluated by infectious disease and is currently on Ceftaroline. He also remains in the [facility] protocol for concerns regarding possible delirium tremens. The patient is seen again today 08/11/2016 in follow-up in the intensive care unit. He has a MedSurg overflow. He is awake and alert in no acute distress. His O2 requirements continue to improve he is currently at 4 L/m per high flow nasal cannula. His chest x-ray does reveal some mild pulmonary venous congestion. He has not required any Ativan for DTs. He is continued on Tamiflu and Teflaro per infectious disease. Objective - Vital Signs Vital signs: Vital Signs Temp 97.4 F L 08/11/16 08:00 Pulse 86 08/11/16 09:00 Resp 21 08/11/16 09:00 BP 149/80 08/11/16 08:00 Pulse Ox 93 L 08/11/16 09:00 Intake & Output 08/10/16 08/11/16 08/11/16 18:59 06:59 18:59 Intake Total 1225 1150 475 Output Total 2 1975 600 Balance 1223 -825 -125 Weight 77 kg 75.9 kg Intake: IV 1125 1150 475 Ceftaroline Fosamil 600 250 250 250 mg In Sodium Chloride 0.9 % 250 ml @ 250 mls/hr IVPB Q12HR@0600,1800 [facility] Rx#:[id number] Sodium Chloride 0.9% 1, 750 900 225 000 ml @ 75 mls/hr IV . [id number] [facility] Rx#:[id number] Sodium Phosphate 10 mmol 125 In Sodium Chloride 0.9% 250 ml @ 125 mls/hr IVPB ONCE ONE Rx#:[id number] Intake, IV Titration 100 Amount Magnesium Sulfate-D5w Pmx 100 1 gm In Dextrose/Water 1 100ml.bag @ 100 mls/hr IVPB Q1H [facility] Rx#: [id number] Output: Urine 1975 600 Stool 1 Urine/Stool Mix 1 Other: Voiding Method Toilet Toilet Toilet # Voids 1 1 1 - Exam GENERAL EXAM: Alert, active, comfortable in no apparent distress. HEAD: Normocephalic. EYES: Normal reaction of pupils, equal size. NOSE: Clear with pink turbinates. THROAT: No erythema or exudates. NECK: No masses, no JVD. CHEST: No chest wall deformity. LUNGS: Bibasilar crackles posteriorly. Diminished. CVS: S1 and S2 normal with no audible murmurs, regular rhythm. ABDOMEN: No hepatosplenomegaly, normal bowel sounds, no guarding or rigidity. SPINE: No scoliosis or deformity SKIN: No rashes CENTRAL NERVOUS SYSTEM: No focal deficits, tone is normal in all 4 extremities. Extremities: There is no significant peripheral edema. No clubbing, no cyanosis. Peripheral pulses are intact. - Labs CBC & Chem 7: 08/11/16 08:43 08/11/16 08:43 Labs: Abnormal Lab Results - Last 24 Hours (Table) 08/11/16 08/11/16 Range/Units 08:43 08:43 RBC 3.94 L (4.30-5.90) m/uL MCH 35.2 H (25.0-35.0) pg Lymphocytes # (Manual) 0.6 L (1.0-4.8) k/uL Sodium 125 L (137-145) mmol/L Chloride 90 L (98-107) mmol/L BUN 4 L (9-20) mg/dL Creatinine 0.52 L (0.66-1.25) mg/dL Glucose 113 H (74-99) mg/dL Calcium 7.7 L (8.4-10.2) mg/dL Microbiology - Last 24 Hours (Table) 08/09/16 07:00 Stool for WBCs - Final Stool 08/09/16 07:00 Stool Culture - Preliminary Stool Assessment and Plan Plan: Impression: #1 Bibasilar pneumonia, suspect community-acquired, complicated by influenza B. #2 Acute hypoxic respiratory failure secondary to above. #3 Influenza B infection. #4 Severe hyponatremia secondary to dehydration. #5 Mild rhabdomyolysis secondary to severe dehydration. #6 Chronic and ongoing tobacco dependence. #7 Hepatitis C. #8 Daily alcohol use. Plan: The patient was seen and evaluated by Dr. Richards. His chest x-ray and labs were all reviewed. We will continue with Teflaro per ID recommendations for concerns regarding possible staph aureus pneumonia as well as potential MRSA pneumonia. We'll continue Tamiflu. He could be transferred out of the intensive care unit later this afternoon if he continues to do well. He remains on the CIWA protocol and will be observed for signs of delirium tremens. He is educated regarding the importance of complete smoking cessation. A NicoDerm patch will be offered. We will continue to follow and make further recommendations based on his clinical status.
--- NOTE | 2016-08-11 12:13 | XR ---
EXAMINATION TYPE: XR chest 1V DATE OF EXAM: 08/11/2016 6:12 AM HISTORY: Shortness of breath. COMPARISON: 08/10/2016 TECHNIQUE: Single view of the chest is submitted. FINDINGS: Demonstrated are scattered senescent parenchymal change. Persistent but improving pulmonary venous congestion with interstitial edema and small right-sided e ffusion. More patchy confluent infiltrate right medial lung base. Overall stable examination. Hilar and mediastinal structures are within normal limits. Degenerative changes are seen of the dorsal spine. IMPRESSION: 1. Stable chest. Continued progress studies are advised.
--- NOTE | 2016-08-11 15:09 | P.PN ---
Subjective Principal diagnosis: Influenza B, pneumonia Patient is a 56-year-old male, patient of Dr. Cornell Leone in the outpatient setting, with medical history significant for hepatitis C, colitis, alcohol abuse, and nicotine dependence. Patient admitted through the emergency department with multiple complaints including nausea, fatigue, weakness, and diarrhea for approximately one week. Patient also complained of abdominal discomfort. Patient was found to have evidence of bilateral pneumonia and tested positive for influenza B. Patient was also hyponatremic with a presenting sodium of 112. Patient was transferred to the intensive care unit for further monitoring. Upon evaluation, patient is feeling better. Patient denies increased shortness of breath, abdominal pain, nausea, vomiting, or chest pain. Patient is passing flatus with bowel movements. Patient is currently on 3 L nasal cannula with oxygen saturation around 94%. states that patient is less confused today than yesterday. Patient is requesting something to help him sleep. Chest x-ray from this morning improving. No evidence of fevers. Sodium increased to 125. Pulmonary service and infectious disease service is following patient, notes reviewed. Patient is currently scheduled to move out of the intensive care unit to a medical floor when a bed is available. Objective - Vital Signs Vital signs: Vital Signs Temp 98 F 08/11/16 12:00 Pulse 87 08/11/16 14:00 Resp 21 08/11/16 14:00 BP 127/79 08/11/16 14:00 Pulse Ox 93 L 08/11/16 14:00 Intake & Output 08/10/16 08/11/16 08/11/16 18:59 06:59 18:59 Intake Total 1225 1150 515 Output Total 2 6900 603 Balance 1223 -825 -88 Weight 77 kg 75.9 kg Intake: IV 1125 1150 515 Ceftaroline Fosamil 600 250 250 250 mg In Sodium Chloride 0.9 % 250 ml @ 250 mls/hr IVPB Q12HR@0600,1800 [facility] Rx#:[id number] Sodium Chloride 0.9% 1, 750 900 265 000 ml @ 20 mls/hr IV . Q24H [facility] Rx#:[id number] Sodium Phosphate 10 mmol 125 In Sodium Chloride 0.9% 250 ml @ 125 mls/hr IVPB ONCE ONE Rx#:[id number] Intake, IV Titration 100 Amount Magnesium Sulfate-D5w Pmx 100 1 gm In Dextrose/Water 1 100ml.bag @ 100 mls/hr IVPB Q1H [facility] Rx#: [id number] Output: Urine 1975 600 Stool 1 3 Urine/Stool Mix 1 Other: Voiding Method Toilet Toilet Toilet # Voids 1 1 1 - Exam GENERAL: Pt awake and alert, well-nourished, in no acute distress. HEAD: Atraumatic, normocephalic. EYES: Pupils equal, round, and reactive to light, extraocular movements intact, sclera anicteric, conjunctiva are normal. ENT: Oropharynx clear without exudates. Moist mucous membranes. NECK:Supple without lymphadenopathy or JVD. LUNGS: Breath sounds diminished with scattered rhonchi bilaterally. HEART: Heart S1, S2, no S3 or S4. Regular rate and rhythm. No murmurs, rubs or gallops. ABDOMEN: Soft, nontender, nondistended, normoactive bowel sounds. No guarding, no rebound. No masses or organomegaly appreciated. EXTREMITIES: Palpable peripheral pulses. No edema, clubbing or cyanosis. No calf tenderness. NEUROLOGICAL: Pt oriented x 3. No focal deficits noted. Strength and sensation grossly intact. PSYCH: Normal mood, normal affect. SKIN: Warm, dry, intact. Normal turgor. No rashes or lesions. - Labs CBC & Chem 7: 08/11/16 08:43 08/11/16 08:43 Labs: Abnormal Lab Results - Last 24 Hours (Table) 08/11/16 08/11/16 Range/Units 08:43 08:43 RBC 3.94 L (4.30-5.90) m/uL MCH 35.2 H (25.0-35.0) pg Lymphocytes # (Manual) 0.6 L (1.0-4.8) k/uL Sodium 125 L (137-145) mmol/L Chloride 90 L (98-107) mmol/L BUN 4 L (9-20) mg/dL Creatinine 0.52 L (0.66-1.25) mg/dL Glucose 113 H (74-99) mg/dL Calcium 7.7 L (8.4-10.2) mg/dL Microbiology - Last 24 Hours (Table) 08/09/16 07:00 Stool for WBCs - Final Stool 08/09/16 07:00 Stool Culture - Preliminary Stool Assessment and Plan Plan: Impression: 1. Acute metabolic and toxic encephalopathy secondary to dehydration as well as infection, present on admission, improved. 2. Acute influenza B infection. 3. Bilateral pneumonia, community-acquired. 4. Elevated d-dimer. CT angiogram negative for pulmonary embolism. 5. Elevated CPK level with after my lysis, present on admission, improved suspect secondary to dehydration. 6. History of hepatitis C. 7. Hyponatremia likely hypovolemic as well as secondary to inflammatory infection. 8. Acute hypoxic respiratory failure, present on admission, secondary to pneumonia. 9. Abdominal pain, resolved. 10. Nicotine dependence. 11. Alcohol abuse. 12. Insomnia. Plan: Continue to monitor patient. Continue IV antibiotics per infectious disease recommendations. Continue current medications. Will add Ambien to help with sleep. Continue CIWA protocol for possible delirium tremens. Smoking cessation encouraged. Continue to follow with pulmonary and infectious disease service. Patient is scheduled to transfer out of the intensive care unit when bed is available. The above impression and plan have been discussed and directed by Dr. Leone. Katlyn GREER acting as scribe for Dr. Leone.
--- NOTE | 2016-08-11 22:32 | P.PN ---
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 He's had difficulty with fevers and chills that have come and gone. He's had significant and progressive fatigue. He felt like he may have had the flu with some body aches as well as cough, scant sputum production and some nasal congestion. As he continued to weaken he finally presented to emergency center where he was out evidence of hypoxia and significant shortness of breath. Chest x-ray was abnormal and The Patient Was Admitted to the Intensive Care Unit Because of the Needs for BiPAP for Respiratory Support. Because of the Significant Pneumonia and Influenza the Infectious Diseases Consultation Was Requested. At this time this pleasant gentleman relates he still feels very poorly. He finds the BiPAP very uncomfortable. Follow he is trying to tolerated because he understands its importance. He is not a detailed historian at this time. It is noted that he had significant hyponatremia at admission that is now improving. There is notation that he has had treatment for hepatitis C that it does not appear that this is current. Patient is now feeling considerably better. He is now on high flow oxygen 10 L with saturation about 90%. He is less short of breath. He is still showing some anxiety. Is being monitored per the [facility] protocol. Fever has resolved mentation is improved and still on O2 therapy. Objective - Vital Signs Vital signs: Vital Signs Temp 98.8 F 08/11/16 16:31 Pulse 87 08/11/16 16:31 Resp 18 08/11/16 16:31 BP 134/86 08/11/16 16:31 Pulse Ox 99 08/11/16 16:31 Intake & Output 08/11/16 08/11/16 08/12/16 06:59 18:59 06:59 Intake Total 1150 515 Output Total 1974 603 Balance -825 -88 Weight 75.9 kg Intake: IV 1150 515 Ceftaroline Fosamil 600 250 250 mg In Sodium Chloride 0.9 % 250 ml @ 250 mls/hr IVPB Q12HR@0600,1800 [facility] Rx#:[id number] Sodium Chloride 0.9% 1, 900 265 000 ml @ 20 mls/hr IV . Q24H [facility] Rx#:[id number] Output: Urine 1974 600 Stool 3 Other: Voiding Method Toilet Toilet # Voids 1 1 2 - Exam 56-year-old male who appears to have significant outside exposure by his skin tone, is not feeling well and is less short of breath. BiPAP removed. High flow oxygen with marginal saturations. HEENT: Anicteric conjunctiva are pink and moist nasal mucosa grossly intact without significant lesions, there is no thrush. Neck: The neck is supple without significant lymphadenopathy or thyromegaly. Lungs: Symmetrical air entry is noted. Coarse crackles at the lung yeung is noted. There are crackles at the bases. No egophony or dullness was noted Heart: Tachycardic but normal rhythm with an audible S1-S2, no S3 no S4. There is no significant murmur click or rub, PMI was nondisplaced. Abdomen: Thin, Positive bowel sounds soft and nontender without palpable masses or organomegaly. There was no guarding or rebound. Extremities: The upper extremities have excellent pulses they are symmetric, no significant petechiae or telangiectasia. No splinter hemorrhages were noted. The lower extremities are free from significant edema. The peripheral pulses were 2+ and symmetric. Neuro: Awake alert oriented to person place and time. There are no acute new gross focal sensory motor deficits.Much improved Skin is without rash lesions or breakdown - Labs CBC & Chem 7: 08/11/16 08:43 08/11/16 08:43 Labs: Abnormal Lab Results - Last 24 Hours (Table) 08/11/16 08/11/16 Range/Units 08:43 08:43 RBC 3.94 L (4.30-5.90) m/uL MCH 35.2 H (25.0-35.0) pg Lymphocytes # (Manual) 0.6 L (1.0-4.8) k/uL Sodium 125 L (137-145) mmol/L Chloride 90 L (98-107) mmol/L BUN 4 L (9-20) mg/dL Creatinine 0.52 L (0.66-1.25) mg/dL Glucose 113 H (74-99) mg/dL Calcium 7.7 L (8.4-10.2) mg/dL Microbiology - Last 24 Hours (Table) 08/10/16 12:00 Stool Culture - Preliminary Stool 08/09/16 07:00 Stool for WBCs - Final Stool Laboratory Results WBC 5.9 k/uL (3.8-10.6) 08/11/16 08:43 RBC 3.94 m/uL (4.30-5.90) L 08/11/16 08:43 Hgb 13.9 gm/dL (13.0-17.5) 08/11/16 08:43 Hct 39.0 % (39.0-53.0) 08/11/16 08:43 MCV 98.9 fL (80.0-100.0) 08/11/16 08:43 MCH 35.2 pg (25.0-35.0) H 08/11/16 08:43 MCHC 35.6 g/dL (31.0-37.0) 08/11/16 08:43 RDW 12.7 % (11.5-15.5) 08/11/16 08:43 Plt Count 180 k/uL (150-450) 08/11/16 08:43 Neutrophils % 86 % 08/10/16 03:30 Neutrophils % (Manual) 76.0 % 08/11/16 08:43 Band Neutrophils % 29.0 % 08/08/16 08:55 Lymphocytes % 5 % 08/10/16 03:30 Lymphocytes % (Manual) 11.0 % 08/11/16 08:43 Monocytes % 5 % 08/10/16 03:30 Monocytes % (Manual) 13.0 % 08/11/16 08:43 Eosinophils % 1 % 08/10/16 03:30 Basophils % 0 % 08/10/16 03:30 Metamyelocytes % 3.5 % 08/08/16 08:55 Neutrophils # 5.9 k/uL (1.3-7.7) 08/10/16 03:30 Neutrophils # (Manual) 4.5 k/uL (1.3-7.7) 08/11/16 08:43 Lymphocytes # 0.3 k/uL (1.0-4.8) L 08/10/16 03:30 Lymphocytes # (Manual) 0.6 k/uL (1.0-4.8) L 08/11/16 08:43 Monocytes # 0.4 k/uL (0-1.0) 08/10/16 03:30 Monocytes # (Manual) 0.8 k/uL (0-1.0) 08/11/16 08:43 Eosinophils # 0.1 k/uL (0-0.7) 08/10/16 03:30 Basophils # 0.0 k/uL (0-0.2) 08/10/16 03:30 Nucleated RBCs 0 /100 WBC (0-0) 08/11/16 08:43 Manual Slide Review Performed 08/11/16 08:43 RBC Morphology Normal 08/11/16 08:43 Poikilocytosis (manual Present 08/08/16 08:55 PT 10.5 sec (9.0-12.0) 08/08/16 08:55 INR 1.0 (<1.1) 08/08/16 08:55 APTT 38.9 sec (22.0-30.0) H 08/08/16 08:55 D-Dimer 1.06 mg/L FEU (<0.60) H 08/08/16 08:55 Sample Site lbrac 08/08/16 09:32 ABG pH 7.51 (7.35-7.45) H 08/08/16 09:32 ABG pCO2 31 mmHg (35-45) L 08/08/16 09:32 ABG pO2 60 mmHg (83-108) L 08/08/16 09:32 ABG HCO3 24 mmol/L (21-25) 08/08/16 09:32 ABG Total CO2 25 mmol/L (19-24) H 08/08/16 09:32 ABG O2 Saturation 93.0 % (94-97) L 08/08/16 09:32 ABG Base Excess 1.5 mmol/L 08/08/16 09:32 FiO2 55 % 08/08/16 09:32 Sodium 125 mmol/L (137-145) L 08/11/16 08:43 Potassium 4.2 mmol/L (3.5-5.1) 08/11/16 08:43 Chloride 90 mmol/L (98-107) L 08/11/16 08:43 Carbon Dioxide 27 mmol/L (22-30) 08/11/16 08:43 Anion Gap 8 mmol/L 08/11/16 08:43 BUN 4 mg/dL (9-20) L 08/11/16 08:43 Creatinine 0.52 mg/dL (0.66-1.25) L 08/11/16 08:43 Est GFR (MDRD) Af Amer >60 (>60 ml/min/1.73 sqM) 08/11/16 08:43 Est GFR (MDRD) Non-Af >60 (>60 ml/min/1.73 sqM) 08/11/16 08:43 Glucose 113 mg/dL (74-99) H 08/11/16 08:43 POC Glucose (mg/dL) 151 mg/dL (75-99) H 08/08/16 14:02 POC Glu Ordnance Handler ID Andrés Bryant 08/08/16 14:02 Plasma Lactic Acid Paramjit 0.8 mmol/L (0.7-2.0) 08/08/16 08:58 Calcium 7.7 mg/dL (8.4-10.2) L 08/11/16 08:43 Phosphorus 3.5 mg/dL (2.5-4.5) 08/11/16 08:43 Magnesium 1.9 mg/dL (1.6-2.3) 08/11/16 08:43 Total Bilirubin 0.6 mg/dL (0.2-1.3) 08/08/16 08:55 AST 88 U/L (17-59) H 08/08/16 08:55 ALT 47 U/L (21-72) 08/08/16 08:55 Alkaline Phosphatase 68 U/L (38-126) 08/08/16 08:55 Total Creatine Kinase 1989 U/L (55-170) H 08/08/16 08:55 CK-MB (CK-2) 4.9 ng/mL (0.0-2.4) H* 08/08/16 08:55 CK-MB (CK-2) Rel Index 08/08/16 08:55 Troponin I <0.012 ng/mL (0.000-0.034) 08/08/16 08:55 NT-Pro-B Natriuret Pep 162 pg/mL 08/08/16 08:55 Total Protein 6.6 g/dL (6.3-8.2) 08/08/16 08:55 Albumin 3.9 g/dL (3.5-5.0) 08/08/16 08:55 Amylase 44 U/L (30-110) 08/09/16 04:13 Lipase 57 U/L (23-300) 08/09/16 04:13 C. 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 He has evidence of respiratory failure required BiPAP support for his respiratory failure. Test reveals evidence of his positive status for influenza B. And Tamiflu has begun. The patient has evidence of significant pneumonia also on his chest x-ray. Because of concern would be to staph aureus pneumonia. With this antibiotic therapy will include Ceftaroline to ensure were treating for staph as well as potential MRSA pneumonia in this patient that has extensive outside contact with the community. Patient had significant hyponatremia unclear etiology except pneumonia certainly can cause hyponatremia he is responding well to current intervention. He has mild altered mental status that is likely due to the hyponatremia. Sodium did increase 125 today. is happy with his progress. Patient not realistic is still on O2 therapy and thinks he can go home then go to work tomorrow Did have recurrent fever but it is now resolved. Is on the basis of his underlying influenza and secondary pneumonia. Patient relates to a history of extensive alcohol intake on a daily basis. Is being monitored closely for alcohol withdrawal also. Status: Acute (2) Pneumonia Status: Acute (3) Hyponatremia Status: Acute (4) Altered mental status Status: Acute
[2016-08-11] MEDS: ZOLPIDEM 5 MG TAB PO SCH (23:40)
[2016-08-12] MEDS: CEFTAROLINE FOSAMIL 600 MG in SODIUM CHLORIDE 0.9% 250 ML IVPB SCH ×2 (06:15→17:59)
[2016-08-12] MEDS: PANTOPRAZOLE 40 MG TABLET PO SCH (08:22)
[2016-08-12] MEDS: OSELTAMIVIR 75 MG CAP PO SCH ×2 (08:22→20:39)
[2016-08-12] MEDS: CYANOCOBALAMIN 500 MCG TAB PO SCH (08:22)
[2016-08-12 09:25] LABS: Anion Gap 9 mmol/L; Blood Urea Nitrogen 4 mg/dL (9-20); Carbon Dioxide 28 mmol/L (22-30); Chloride 91 mmol/L (98-107); Glucose 96 mg/dL (74-99); Magnesium 1.9 mg/dL (1.6-2.3); Non-African American GFR(MDRD) >60 (>60 ml/min/1.73 sqM); Potassium 4.2 mmol/L (3.5-5.1); Sodium 128 mmol/L (137-145)
[2016-08-12 09:30] LABS: Aty Lym Flag Slight; CHCM 35.5; HCT 38.8 % (39.0-53.0); HDW 2.55; HGB 13.8 gm/dL (13.0-17.5); MCH 35.1 pg (25.0-35.0); MCHC 35.5 g/dL (31.0-37.0); MCV 98.8 fL (80.0-100.0); Mean Platelet Volume 7.6; RBC 3.92 m/uL (4.30-5.90); RDW 12.7 % (11.5-15.5); WBC 6.4 k/uL (3.8-10.6); WBC (Perox) 6.68
[2016-08-12] MEDS: SODIUM CHLORIDE 0.9% 1,000 ML IV SCH ×2 (10:38→14:13)
[2016-08-12 10:42] LABS: Add Differential Manual Differential
[2016-08-12 10:44] LABS: Nucleated Red Blood Cells 0 /100 WBC (0-0); Total Cells Counted 100
--- NOTE | 2016-08-12 13:24 | P.PN ---
Subjective Progress note dated 08/12/2016 The patient was moved out of the ICU yesterday. Doing relatively well. His oxygen requirements have continued to go down. Today he was on 6 L. Probably be dropped down to 4 L nasal cannula. Will likely have to be discharged home on oxygen therapy. The patient has not had any additional signs or symptoms of alcohol withdrawal. The patient does have evidence of mild pulmonary venous hypertension. The patient continues on his antibiotics as per infectious disease including Tamiflu for influenza and to [place]. Short of that he is doing relatively relatively well and we feel like in the next day or so he can probably be discharged home. Denies any chest pain or chest discomfort. No nausea vomiting or diarrhea. Objective - Vital Signs Vital signs: Vital Signs Temp 99.3 F 08/12/16 07:00 Pulse 81 08/12/16 07:00 Resp 20 08/12/16 07:00 BP 135/77 08/12/16 07:00 Pulse Ox 90 L 08/12/16 12:25 Intake & Output 08/11/16 08/12/16 08/12/16 18:59 06:59 18:59 Intake Total 515 Output Total 603 Balance -88 Intake: IV 515 Ceftaroline Fosamil 600 250 mg In Sodium Chloride 0.9 % 250 ml @ 250 mls/hr IVPB Q12HR@0600,1800 [facility] Rx#:[id number] Sodium Chloride 0.9% 1, 265 000 ml @ 20 mls/hr IV . Q24H [facility] Rx#:[id number] Output: Urine 600 Stool 3 Other: Voiding Method Toilet Toilet # Voids 1 1 1 - Exam No acute distress, oriented 3. Laying in bed. Nasal O2 in place. HEENT examination is grossly unremarkable. Mucous membranes are moist. No oral lesions. Neck supple. Full range of motion. No adenopathy or thyromegaly. Neck veins are flat. Cardiovascular examination reveals distant heart sounds. S1 and S2 normal. No S3-S4 murmur. Lungs reveal relatively clear but somewhat diminished breath sounds. A few scattered rhonchi. No wheezes or crackles. Breath sounds equal. The rest of the examination including the abdomen and extremities are intact. - Labs CBC & Chem 7: 08/12/16 08:55 08/12/16 08:55 Labs: Abnormal Lab Results - Last 24 Hours (Table) 08/12/16 08/12/16 Range/Units 08:55 08:55 RBC 3.92 L (4.30-5.90) m/uL Hct 38.8 L (39.0-53.0) % MCH 35.1 H (25.0-35.0) pg Lymphocytes # (Manual) 0.8 L (1.0-4.8) k/uL Sodium 128 L (137-145) mmol/L Chloride 91 L (98-107) mmol/L BUN 4 L (9-20) mg/dL Creatinine 0.53 L (0.66-1.25) mg/dL Calcium 8.0 L (8.4-10.2) mg/dL Microbiology - Last 24 Hours (Table) 08/09/16 07:00 Stool Culture - Preliminary Stool Jennifer albicans 08/10/16 12:00 Stool for WBCs - Final Stool 08/10/16 12:00 Stool Culture - Preliminary Stool Assessment and Plan (1) Altered mental status Status: Acute (2) Hyponatremia Status: Acute (3) Hypoxia Status: Acute (4) Influenza B Status: Acute (5) Pneumonia Status: Acute Plan: Plan dated 08/12/2016 The patient is doing much better. We'll review we will review his chest x-ray medications and labs. Additional recommendations suggestions are forthcoming. Probably discharge from the hospital on oxygen therapy. The patient be followed as needed. Time with Patient: Less than 30
--- NOTE | 2016-08-12 15:31 | P.PN ---
Subjective Patient is a 56-year-old male, patient of Dr. Cornell Leone in the outpatient setting, with medical history significant for hepatitis C, colitis, alcohol abuse, and nicotine dependence. Patient admitted through the emergency department with multiple complaints including nausea, fatigue, weakness, and diarrhea for approximately one week. Patient also complained of abdominal discomfort. Patient was found to have evidence of bilateral pneumonia and tested positive for influenza B. Patient was also hyponatremic with a presenting sodium of 112. Patient was transferred to the intensive care unit for further monitoring. Patient improved and yesterday was transferred out of the intensive care unit to the medical floor. Upon evaluation, patient is very anxious to go home. Patient denies increased shortness of breath, abdominal pain, nausea, vomiting, or chest pain. Patient is passing flatus with bowel movements. Patient is currently on 3 L nasal cannula with oxygen saturation around 94%. again at bedside reporting that patient's confusion has improved. No evidence of fevers. Sodium increased to 128. Pulmonary service has cleared patient for discharge. Did speak to Dr. Almonte about potential discharge, was recommending that patient get nephrology consult for unknown cause of hyponatremia. Objective - Vital Signs Vital signs: Vital Signs Temp 99.3 F 08/12/16 07:00 Pulse 81 08/12/16 07:00 Resp 20 08/12/16 07:00 BP 135/77 08/12/16 07:00 Pulse Ox 90 L 08/12/16 12:25 Intake & Output 08/11/16 08/12/16 08/12/16 18:59 06:59 18:59 Intake Total 515 Output Total 603 Balance -88 Intake: IV 515 Ceftaroline Fosamil 600 250 mg In Sodium Chloride 0.9 % 250 ml @ 250 mls/hr IVPB Q12HR@0600,1800 [facility] Rx#:[id number] Sodium Chloride 0.9% 1, 265 000 ml @ 20 mls/hr IV . Q24H [facility] Rx#:[id number] Output: Urine 600 Stool 3 Other: Voiding Method Toilet Toilet # Voids 1 1 1 - Exam GENERAL: Pt awake and alert, well-nourished, in no acute distress. HEAD: Atraumatic, normocephalic. EYES: Pupils equal, round, and reactive to light, extraocular movements intact, sclera anicteric, conjunctiva are normal. ENT: Oropharynx clear without exudates. Moist mucous membranes. NECK:Supple without lymphadenopathy or JVD. LUNGS: Breath sounds diminished with scattered rhonchi bilaterally. HEART: Heart S1, S2, no S3 or S4. Regular rate and rhythm. No murmurs, rubs or gallops. ABDOMEN: Soft, nontender, nondistended, normoactive bowel sounds. No guarding, no rebound. No masses or organomegaly appreciated. EXTREMITIES: Palpable peripheral pulses. No edema, clubbing or cyanosis. No calf tenderness. NEUROLOGICAL: Pt oriented x 3. No focal deficits noted. Strength and sensation grossly intact. PSYCH: Normal mood, normal affect. SKIN: Warm, dry, intact. Normal turgor. No rashes or lesions. - Labs CBC & Chem 7: 08/12/16 08:55 08/12/16 08:55 Labs: Abnormal Lab Results - Last 24 Hours (Table) 08/12/16 08/12/16 Range/Units 08:55 08:55 RBC 3.92 L (4.30-5.90) m/uL Hct 38.8 L (39.0-53.0) % MCH 35.1 H (25.0-35.0) pg Lymphocytes # (Manual) 0.8 L (1.0-4.8) k/uL Sodium 128 L (137-145) mmol/L Chloride 91 L (98-107) mmol/L BUN 4 L (9-20) mg/dL Creatinine 0.53 L (0.66-1.25) mg/dL Calcium 8.0 L (8.4-10.2) mg/dL Microbiology - Last 24 Hours (Table) 08/09/16 07:00 Stool Culture - Preliminary Stool Jennifer albicans 08/10/16 12:00 Stool for WBCs - Final Stool 08/10/16 12:00 Stool Culture - Preliminary Stool Assessment and Plan Plan: Impression: 1. Acute metabolic and toxic encephalopathy secondary to dehydration as well as infection, present on admission, improved. 2. Acute influenza B infection. 3. Bilateral pneumonia, community-acquired. 4. Elevated d-dimer. CT angiogram negative for pulmonary embolism. 5. Elevated CPK level with rhabdomyolysis, present on admission, improved suspect secondary to dehydration. 6. History of hepatitis C. 7. Hyponatremia likely hypovolemic as well as secondary to inflammatory infection. Will obtain nephrology consult. 8. Acute hypoxic respiratory failure, present on admission, secondary to pneumonia. 9. Abdominal pain, resolved. 10. Nicotine dependence. 11. Alcohol abuse. 12. Insomnia. Plan: Continue to monitor patient. Continue IV antibiotics per infectious disease recommendations. Continue current medications. We'll request nephrology consult for hyponatremia. Continue CIPR protocol for possible delirium tremens. Smoking cessation encouraged. Continue to follow with consultants. Possible discharge to home tomorrow pending clinical presentation. The above impression and plan have been discussed and directed by Dr. Leone. Katlyn GREER acting as scribe for Dr. Leone.
[2016-08-12] MEDS: ZOLPIDEM 5 MG TAB PO SCH (20:39)
--- NOTE | 2016-08-12 21:52 | P.PN ---
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 He's had difficulty with fevers and chills that have come and gone. He's had significant and progressive fatigue. He felt like he may have had the flu with some body aches as well as cough, scant sputum production and some nasal congestion. As he continued to weaken he finally presented to emergency center where he was out evidence of hypoxia and significant shortness of breath. Chest x-ray was abnormal and The Patient Was Admitted to the Intensive Care Unit Because of the Needs for BiPAP for Respiratory Support. Because of the Significant Pneumonia and Influenza the Infectious Diseases Consultation Was Requested. At this time this pleasant gentleman relates he still feels very poorly. He finds the BiPAP very uncomfortable. Follow he is trying to tolerated because he understands its importance. He is not a detailed historian at this time. It is noted that he had significant hyponatremia at admission that is now improving. There is notation that he has had treatment for hepatitis C that it does not appear that this is current. Patient is now feeling considerably better. He is now on high flow oxygen 10 L with saturation about 90%. He is less short of breath. He is still showing some anxiety. Is being monitored per the CWIA protocol. Fever has resolved mentation is improved but not at baseline and still on O2 therapy. Objective - Vital Signs Vital signs: Vital Signs Temp 97.9 F 08/12/16 15:00 Pulse 75 08/12/16 15:00 Resp 20 08/12/16 15:00 BP 133/87 08/12/16 15:00 Pulse Ox 94 L 08/12/16 15:00 Intake & Output 08/12/16 08/12/16 08/13/16 06:59 18:59 06:59 Other: Voiding Method Toilet # Voids 1 2 - Exam 56-year-old male who appears to have significant outside exposure by his skin tone, feeling somewhat better but still having some difficulties with mentation. Requiring oxygen therapy still. HEENT: Anicteric conjunctiva are pink and moist nasal mucosa grossly intact without significant lesions, there is no thrush. Neck: The neck is supple without significant lymphadenopathy or thyromegaly. Lungs: Symmetrical air entry is noted. Coarse crackles at the lung yeung is noted. There are crackles at the bases. No egophony or dullness was noted Heart: Regular rate normal rhythm with an audible S1-S2, no S3 no S4. There is no significant murmur click or rub, PMI was nondisplaced. Abdomen: Thin, Positive bowel sounds soft and nontender without palpable masses or organomegaly. There was no guarding or rebound. Extremities: The upper extremities have excellent pulses they are symmetric, no significant petechiae or telangiectasia. No splinter hemorrhages were noted. The lower extremities are free from significant edema. The peripheral pulses were 2+ and symmetric. Neuro: Awake alert oriented to person place and time. There are no acute new gross focal sensory motor deficits.Much improved Skin is without rash lesions or breakdown - Labs CBC & Chem 7: 08/12/16 08:55 08/12/16 08:55 Labs: Abnormal Lab Results - Last 24 Hours (Table) 08/12/16 08/12/16 Range/Units 08:55 08:55 RBC 3.92 L (4.30-5.90) m/uL Hct 38.8 L (39.0-53.0) % MCH 35.1 H (25.0-35.0) pg Lymphocytes # (Manual) 0.8 L (1.0-4.8) k/uL Sodium 128 L (137-145) mmol/L Chloride 91 L (98-107) mmol/L BUN 4 L (9-20) mg/dL Creatinine 0.53 L (0.66-1.25) mg/dL Calcium 8.0 L (8.4-10.2) mg/dL Microbiology - Last 24 Hours (Table) 08/09/16 07:00 Stool Culture - Preliminary Stool Jennifer albicans 08/10/16 12:00 Stool for WBCs - Final Stool 08/10/16 12:00 Stool Culture - Preliminary Stool Laboratory Results WBC 6.4 k/uL (3.8-10.6) 08/12/16 08:55 RBC 3.92 m/uL (4.30-5.90) L 08/12/16 08:55 Hgb 13.8 gm/dL (13.0-17.5) 08/12/16 08:55 Hct 38.8 % (39.0-53.0) L 08/12/16 08:55 MCV 98.8 fL (80.0-100.0) 08/12/16 08:55 MCH 35.1 pg (25.0-35.0) H 08/12/16 08:55 MCHC 35.5 g/dL (31.0-37.0) 08/12/16 08:55 RDW 12.7 % (11.5-15.5) 08/12/16 08:55 Plt Count 246 k/uL (150-450) 08/12/16 08:55 Neutrophils % 86 % 08/10/16 03:30 Neutrophils % (Manual) 74.0 % 08/12/16 08:55 Band Neutrophils % 1.0 % 08/12/16 08:55 Lymphocytes % 5 % 08/10/16 03:30 Lymphocytes % (Manual) 12.0 % 08/12/16 08:55 Monocytes % 5 % 08/10/16 03:30 Monocytes % (Manual) 11.0 % 08/12/16 08:55 Eosinophils % 1 % 08/10/16 03:30 Eosinophils % (Manual) 2.0 % 08/12/16 08:55 Basophils % 0 % 08/10/16 03:30 Metamyelocytes % 3.5 % 08/08/16 08:55 Neutrophils # 5.9 k/uL (1.3-7.7) 08/10/16 03:30 Neutrophils # (Manual) 4.8 k/uL (1.3-7.7) 08/12/16 08:55 Lymphocytes # 0.3 k/uL (1.0-4.8) L 08/10/16 03:30 Lymphocytes # (Manual) 0.8 k/uL (1.0-4.8) L 08/12/16 08:55 Monocytes # 0.4 k/uL (0-1.0) 08/10/16 03:30 Monocytes # (Manual) 0.7 k/uL (0-1.0) 08/12/16 08:55 Eosinophils # 0.1 k/uL (0-0.7) 08/10/16 03:30 Eosinophils # (Manual) 0.1 k/uL (0-0.7) 08/12/16 08:55 Basophils # 0.0 k/uL (0-0.2) 08/10/16 03:30 Nucleated RBCs 0 /100 WBC (0-0) 08/12/16 08:55 Manual Slide Review Performed 08/11/16 08:43 RBC Morphology Normal 08/11/16 08:43 Poikilocytosis (manual Present 08/08/16 08:55 Anisocytosis (manual) Present 08/12/16 08:55 PT 10.5 sec (9.0-12.0) 08/08/16 08:55 INR 1.0 (<1.1) 08/08/16 08:55 APTT 38.9 sec (22.0-30.0) H 08/08/16 08:55 D-Dimer 1.06 mg/L FEU (<0.60) H 08/08/16 08:55 Sample Site lbrac 08/08/16 09:32 ABG pH 7.51 (7.35-7.45) H 08/08/16 09:32 ABG pCO2 31 mmHg (35-45) L 08/08/16 09:32 ABG pO2 60 mmHg (83-108) L 08/08/16 09:32 ABG HCO3 24 mmol/L (21-25) 08/08/16 09:32 ABG Total CO2 25 mmol/L (19-24) H 08/08/16 09:32 ABG O2 Saturation 93.0 % (94-97) L 08/08/16 09:32 ABG Base Excess 1.5 mmol/L 08/08/16 09:32 FiO2 55 % 08/08/16 09:32 Sodium 128 mmol/L (137-145) L 08/12/16 08:55 Potassium 4.2 mmol/L (3.5-5.1) 08/12/16 08:55 Chloride 91 mmol/L (98-107) L 08/12/16 08:55 Carbon Dioxide 28 mmol/L (22-30) 08/12/16 08:55 Anion Gap 9 mmol/L 08/12/16 08:55 BUN 4 mg/dL (9-20) L 08/12/16 08:55 Creatinine 0.53 mg/dL (0.66-1.25) L 08/12/16 08:55 Est GFR (MDRD) Af Amer >60 (>60 ml/min/1.73 sqM) 08/12/16 08:55 Est GFR (MDRD) Non-Af >60 (>60 ml/min/1.73 sqM) 08/12/16 08:55 Glucose 96 mg/dL (74-99) 08/12/16 08:55 POC Glucose (mg/dL) 151 mg/dL (75-99) H 08/08/16 14:02 POC Glu Payer Specialist ID Andrés Bryant 08/08/16 14:02 Plasma Lactic Acid Paramjit 0.8 mmol/L (0.7-2.0) 08/08/16 08:58 Calcium 8.0 mg/dL (8.4-10.2) L 08/12/16 08:55 Phosphorus 3.5 mg/dL (2.5-4.5) 08/11/16 08:43 Magnesium 1.9 mg/dL (1.6-2.3) 08/12/16 08:55 Total Bilirubin 0.6 mg/dL (0.2-1.3) 08/08/16 08:55 AST 88 U/L (17-59) H 08/08/16 08:55 ALT 47 U/L (21-72) 08/08/16 08:55 Alkaline Phosphatase 68 U/L (38-126) 08/08/16 08:55 Total Creatine Kinase 1989 U/L (55-170) H 08/08/16 08:55 CK-MB (CK-2) 4.9 ng/mL (0.0-2.4) H* 08/08/16 08:55 CK-MB (CK-2) Rel Index 08/08/16 08:55 Troponin I <0.012 ng/mL (0.000-0.034) 08/08/16 08:55 NT-Pro-B Natriuret Pep 162 pg/mL 08/08/16 08:55 Total Protein 6.6 g/dL (6.3-8.2) 08/08/16 08:55 Albumin 3.9 g/dL (3.5-5.0) 08/08/16 08:55 Amylase 44 U/L (30-110) 08/09/16 04:13 Lipase 57 U/L (23-300) 08/09/16 04:13 C. 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 He has evidence of respiratory failure required BiPAP support for his respiratory failure. Test reveals evidence of his positive status for influenza B. And Tamiflu has begun. The patient has evidence of significant pneumonia also on his chest x-ray. Because of concern would be to staph aureus pneumonia. With this antibiotic therapy will include Ceftaroline to ensure were treating for staph as well as potential MRSA pneumonia in this patient that has extensive outside contact with the community. Patient had significant hyponatremia unclear etiology except pneumonia certainly can cause hyponatremia he is responding well to current intervention. He has mild altered mental status that is likely due to the hyponatremia. Sodium did increase 128 today. is happy with his progress. Patient not realistic is still on O2 therapy and thinks he can go home then go to work tomorrow Discussed with primary the needs for further improvement of his significant hyponatremia. Did have recurrent fever but it is now resolved. Is on the basis of his underlying influenza and secondary pneumonia. Patient relates to a history of extensive alcohol intake on a daily basis. Is being monitored closely for alcohol withdrawal also. Status: Acute (2) Pneumonia Status: Acute (3) Hyponatremia Status: Acute (4) Altered mental status Status: Acute
[2016-08-13] MEDS: CEFTAROLINE FOSAMIL 600 MG in SODIUM CHLORIDE 0.9% 250 ML IVPB SCH (05:10)
[2016-08-13] MEDS: PANTOPRAZOLE 40 MG TABLET PO SCH (07:18)
[2016-08-13] MEDS: NICOTINE 14MG/24HR PATCH TRANSDERM SCH ×2 (07:18→07:20)
[2016-08-13] MEDS: CYANOCOBALAMIN 500 MCG TAB PO SCH (07:19)
[2016-08-13 07:40] VITALS: BP 131/84; PULSE 79; RESP 20; TEMP 96.8
[2016-08-13 09:15] LABS: Aty Lym Flag Slight; CH 35.2; CHCM 35.2; HDW 2.49; HGB 13.9 gm/dL (13.0-17.5); MCHC 33.9 g/dL (31.0-37.0); MCV 100.3 fL (80.0-100.0); Mean Platelet Volume 6.6; RBC 4.08 m/uL (4.30-5.90); RDW 12.6 % (11.5-15.5); WBC 5.4 k/uL (3.8-10.6); WBC (Perox) 5.65
[2016-08-13 09:29] LABS: Anion Gap 9 mmol/L; Blood Urea Nitrogen 5 mg/dL (9-20); Calcium 8.3 mg/dL (8.4-10.2); Carbon Dioxide 28 mmol/L (22-30); Chloride 92 mmol/L (98-107); Glucose 90 mg/dL (74-99); Magnesium 1.9 mg/dL (1.6-2.3); Non-African American GFR(MDRD) >60 (>60 ml/min/1.73 sqM); Potassium 4.5 mmol/L (3.5-5.1); Sodium 129 mmol/L (137-145)
--- NOTE | 2016-08-13 09:41 | P.NPCON ---
History of Present Illness - Reason for Consult hyponatremia - History of Present Illness Reason for consultation: Hyponatremia History of present illness: Patient is a 56-year-old male seen in renal consultation for hyponatremia. Patient presented to the hospital with nausea vomiting and diarrhea and was subsequently diagnosed with influenza B virus. To keep himself hydrated he was drinking quite a bit of water and Gatorade as he was unable to tolerate much oral intake. His sodium level on admission on August 08 at 9 AM was 112. He was subsequently started on 3% saline in the emergency room and the sodium level corrected to 130 as of August 09 4:15 AM. 3% was then discontinued and he was started on 0.9 saline for maintenance fluids. Cerebral level on August 10 and August 11 was 124-125. He was up to 128 on August 12. Labs from today are pending at this time. Nephrology was consulted for further recommendations for hyponatremia on August 12. He is currently sitting up in bed. His appetite is significantly improved. He had eggs and sausage this morning. No further vomiting or diarrhea. He is eager to go home. Denies chest pain or shortness of breath. He admits to good urine output without any hematuria or dysuria. He is also maintained on antibiotics for pneumonia. Denies any prior history of kidney disease. His GFR is at baseline with creatinine at 0.53. I do see ibuprofen listed in his home medications. Vital signs are stable. General: The patient appeared well nourished and normally developed. HEENT: Head exam is unremarkable. Neck is without jugular venous distension. LUNGS: Lungs are clear to auscultation and percussion. Breath sounds decreased. HEART: Rate and Rhythm are regular. First and second heart sounds normal. No murmurs, rubs or gallops. ABDOMEN: Abdominal exam reveals normal bowel sounds. Non-tender and non- distended. No evidence of peritonitis. EXTREMITITES: No clubbing, cyanosis, or edema. 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 Positive tobacco use. Drinks alcohol daily, multiple drinks per day. Denies injection drug use or other recreational drug use. No animal exposures Smoking Status: Current every day smoker Past Alcohol Use History: None Reported Past Drug Use History: None Reported Medications and Allergies Home Medications Medication Instructions Recorded Confirmed Type Cyanocobalamin (Vitamin B-12) 2,500 mcg PO DAILY 08/08/16 08/08/16 History [Vitamin B12] Ibuprofen [Advil] 600 mg PO Q6HR PRN 08/08/16 08/08/16 History Multivit-Min/FA/Lycopene/Lut 1 tab PO DAILY 08/08/16 08/08/16 History [Centrum Silver Tablet] Allergies Allergy/AdvReac Type Severity Reaction Status Date / Time No Known Allergies Allergy Verified 08/08/16 12:13 Physical Exam Vitals: Vital Signs Temp Pulse Pulse Resp BP BP Pulse Ox 08/13/16 07:00 96.8 F L 79 20 131/84 91 L 08/12/16 22:50 96.5 F L 94 19 132/79 91 L 08/12/16 15:00 97.9 F 75 20 133/87 94 L 08/12/16 12:25 90 L 08/12/16 12:24 87 L 08/12/16 12:23 89 L 08/12/16 12:21 93 L Intake and Output 08/12/16 08/13/16 08/13/16 22:59 06:59 14:59 Intake Total 200 Balance 200 Intake: Oral 200 Results - Lab Results Most recent lab results ABG pH 7.51 (7.35-7.45) H 08/08/16 09:32 ABG pCO2 31 mmHg (35-45) L 08/08/16 09:32 ABG pO2 60 mmHg (83-108) L 08/08/16 09:32 ABG HCO3 24 mmol/L (21-25) 08/08/16 09:32 ABG O2 Saturation 93.0 % (94-97) L 08/08/16 09:32 Calcium 8.0 mg/dL (8.4-10.2) L 08/12/16 08:55 Phosphorus 3.5 mg/dL (2.5-4.5) 08/11/16 08:43 Magnesium 1.9 mg/dL (1.6-2.3) 08/12/16 08:55 08/13/16 08:48 08/12/16 08:55 Assessment and Plan Plan: Assessment: #1. Hyponatremia that was initially hypovolemic in nature with a component of excess water intake as well as a component of SIADH due to pneumonia. Sodium level improved quite rapidly with 3% saline and then worsened with normal saline. Currently he is off all IV fluids and sodium level was up to 128 as of yesterday. #2. Influenza B virus. #3. Pneumonia. Plan: He remains off all IV fluids. Encourage oral solute intake, particularly protein. Maintain 1.5 L fluid restriction. Follow-up morning labs. If sodium level continues to improve, he is stable to be discharged from nephrology standpoint. He is to get a basic metabolic panel checked within 3-4 days of discharge and follow-up as an outpatient in the next 1-2 weeks. Thank you for the consultation. I will continue to follow the patient with you during his hospital stay.
[2016-08-13] MEDS: SODIUM CHLORIDE 0.9% 1,000 ML IV SCH (10:15)
--- NOTE | 2016-08-13 10:49 | P.PN ---
Subjective Progress note dated 08/12/2016 The patient was moved out of the ICU yesterday. Doing relatively well. His oxygen requirements have continued to go down. Today he was on 6 L. Probably be dropped down to 4 L nasal cannula. Will likely have to be discharged home on oxygen therapy. The patient has not had any additional signs or symptoms of alcohol withdrawal. The patient does have evidence of mild pulmonary venous hypertension. The patient continues on his antibiotics as per infectious disease including Tamiflu for influenza and to [place]. Short of that he is doing relatively relatively well and we feel like in the next day or so he can probably be discharged home. Denies any chest pain or chest discomfort. No nausea vomiting or diarrhea. Progress note dated 08/13/2016. The patient continues to improve. Will likely be discharged home today. Feeling much less short of breath. Down to 3 L nasal cannula. Not coughing up any phlegm. Probably has pretty significant COPD. I did tell the him and his that should he should come see me after discharge in the office for additional testing. Again feeling much improved. No cough. No wheezing. Not producing any phlegm. No fever no chills. No nausea vomiting or diarrhea. The patient is not having any chest pain or chest discomfort. Objective - Vital Signs Vital signs: Vital Signs Temp 96.8 F L 08/13/16 07:00 Pulse 79 08/13/16 07:00 Resp 20 08/13/16 07:00 BP 131/84 08/13/16 07:00 Pulse Ox 91 L 08/13/16 10:09 Intake & Output 08/12/16 08/13/16 08/13/16 18:59 06:59 18:59 Intake Total 200 Balance 200 Intake: Oral 200 Other: Voiding Method Toilet # Voids 2 - Exam No acute distress, oriented 3. Laying in bed. Nasal O2 in place. HEENT examination is grossly unremarkable. Mucous membranes are moist. No oral lesions. Neck supple. Full range of motion. No adenopathy or thyromegaly. Neck veins are flat. Cardiovascular examination reveals distant heart sounds. S1 and S2 normal. No S3-S4 murmur. Lungs reveal relatively clear but somewhat diminished breath sounds. A few scattered rhonchi. A few scattered wheezes are noted. Breath sounds are equal bilaterally. The rest of the examination including the abdomen and extremities are intact. Abdomen soft bowel sounds are heard. Extremities are intact. No cyanosis clubbing or edema. - Labs CBC & Chem 7: 08/13/16 08:48 08/13/16 08:48 Labs: Abnormal Lab Results - Last 24 Hours (Table) 08/12/16 08/13/16 08/13/16 Range/Units 08:55 08:48 08:48 RBC 3.92 L 4.08 L (4.30-5.90) m/uL Hct 38.8 L (39.0-53.0) % MCV 100.3 H (80.0-100.0) fL MCH 35.1 H (25.0-35.0) pg Lymphocytes # (Manual) 0.8 L (1.0-4.8) k/uL Sodium 129 L (137-145) mmol/L Chloride 92 L (98-107) mmol/L BUN 5 L (9-20) mg/dL Creatinine 0.52 L (0.66-1.25) mg/dL Calcium 8.3 L (8.4-10.2) mg/dL Microbiology - Last 24 Hours (Table) 08/09/16 07:00 Stool Culture - Preliminary Stool Jennifer albicans Assessment and Plan (1) Altered mental status Status: Acute (2) Hyponatremia Status: Acute (3) Hypoxia Status: Acute (4) Influenza B Status: Acute (5) Pneumonia Status: Acute Plan: Plan dated 08/12/2016 The patient is doing much better. We'll review we will review his chest x-ray medications and labs. Additional recommendations suggestions are forthcoming. Probably discharge from the hospital on oxygen therapy. The patient be followed as needed. Plan dated 08/13/2016 The patient is now been weaned down liters nasal cannula. In my opinion could be discharged home. We'll allow the primary to make the final decision. I did ask the patient come see me in the office after discharge for follow-up including PFTs and a 6 minute walk distance. Additional recommendations suggestions are forthcoming. Time with Patient: Less than 30
[2016-08-13 10:59] LABS: Add Differential Manual Differential
[2016-08-13 11:06] LABS: Nucleated Red Blood Cells 0 /100 WBC (0-0); Total Cells Counted 100
[2016-08-13 11:08] LABS: Manual Review Performed
[2016-08-13] MEDS ORDERED: HYDROCORTISONE 1% OINT 28.35 GM TUBE TOPICAL PRN (11:45)
--- NOTE | 2016-08-13 12:44 | P.DS ---
Providers Date of admission: 08/08/16 13:03 Expected date of discharge: 08/13/16 Attending physician: Cornell Leone Consults: 08/08/16 13:04 Consult Physician Stat Consulting Provider: Marco Anthony Consult Reason/Comments: Hypoxia and a severe hypernatremia, respiratory failure, pneumonia, influen Do you want consulting provider notified?: Yes 08/09/16 15:29 Consult Physician Routine Consulting Provider: rGeg Almonte Consult Reason/Comments: influenza B, pneumonia, Do you want consulting provider notified?: Already Contacted 08/12/16 14:42 Consult Physician Urgent Consulting Provider: Tc Dunne Consult Reason/Comments: hyponatremia Do you want consulting provider notified?: Yes Primary care physician: Cornell Leone Hospital Course: Patient is a 56-year-old male, patient of Dr. Cornell Leone in the outpatient setting, with medical history significant for hepatitis C, colitis, alcohol abuse, and nicotine dependence. Patient admitted through the emergency department with multiple complaints including nausea, fatigue, weakness, abdominal pain, and diarrhea for approximately one week. Patient was found to have evidence of severe dehydration, bilateral pneumonia and Influenza B. Patient was admitted to the intensive care unit for further monitoring where he improved and was transferred out to the medical floor. Patient was followed by Dr. Almonte from infectious disease service, Dr. Vasquez from pulmonary service, and Dr. Dunne from nephrology service during his hospital stay. Patient improved with antibiotics, IV hydration, oxygen supplementation, supportive treatment and pain management. Patient was felt stable for discharge to home on home oxygen with close follow-up in the outpatient setting. Discharge diagnoses: 1. Acute metabolic and toxic encephalopathy secondary to dehydration as well as infection, present on admission, improved. 2. Acute influenza B infection. 3. Bilateral pneumonia, community-acquired. 4. Elevated d-dimer. CT angiogram negative for pulmonary embolism. 5. Elevated CPK level with rhabdomyolysis, present on admission, improved suspect secondary to dehydration. 6. History of hepatitis C. 7. Hyponatremia likely hypovolemic as well as secondary to inflammatory infection. 8. Acute hypoxic respiratory failure, present on admission, secondary to pneumonia. 9. Abdominal pain, resolved. 10. Nicotine dependence. 11. Alcohol abuse. 12. Insomnia. The above impression and plan have been discussed and directed by Dr. Leone. Birgitte EXERCISE PHYSIOLOGIST CERTIFIED-C acting as scribe for Dr. Leone. Pertinent Studies: EKG; chest x-ray; abdomen ultrasound; chest CTA Patient Condition at Discharge: Good Plan - Discharge Summary New Discharge Prescriptions: Cefuroxime [Ceftin] 500 mg PO BID #20 tab Hydrocortisone Oint [Hydrocortisone 1% Oint] 1 applic TOPICAL BID #28.4 gm Discharge Medication List Cyanocobalamin (Vitamin B-12) [Vitamin B12] 2,500 mcg PO DAILY 08/08/16 [History ] Ibuprofen [Advil] 600 mg PO Q6HR PRN 08/08/16 [History] Multivit-Min/FA/Lycopene/Lut [Centrum Silver Tablet] 1 tab PO DAILY 08/08/16 [ History] Cefuroxime [Ceftin] 500 mg PO BID #20 tab 08/13/16 [Rx] Hydrocortisone Oint [Hydrocortisone 1% Oint] 1 applic TOPICAL BID #28.4 gm 08/13 [Rx] Follow up Appointment(s)/Referral(s): Cornell Leone DO [Primary Care Provider] - 08/23/16 9:50 am Tc Dunne DO [STAFF PHYSICIAN] - 3 Days (office will call you to schedule an appointment) Ambulatory/Diagnostic Orders: Basic Metabolic Panel [LAB.AMB] Time Frame: 08/17/16, Location: Determined By Patient Patient Instructions/Handouts: Viral Pneumonia (DC), Hyponatremia (DC), Influenza (DC) Activity/Diet/Wound Care/Special Instructions: No smoking, cessation information provided. No work for 2 weeks. Discharge Disposition: HOME SELF-CARE
== END 2016-08-13 13:18 | disposition home or self-care (01) | DRG 193 ==
LOC: EC 07:50 → 6ICU 13:03 → 4MS4W 08-11 15:34
PROVIDERS: ADMIT Family Medicine; ATTEND Family Medicine
DX: J15.9 Unspecified bacterial pneumonia (principal); G92 Toxic encephalopathy; J96.01 Acute respiratory failure with hypoxia; E22.2 Syndrome of inappropriate secretion of antidiuretic hormone; J44.0 Chronic obstructive pulmonary disease with (acute) lower respiratory infection; M62.82 Rhabdomyolysis; J10.1 Influenza due to other identified influenza virus with other respiratory manifestations; B18.2 Chronic viral hepatitis C; E86.0 Dehydration; E86.1 Hypovolemia; F10.10 Alcohol abuse, uncomplicated; F17.200 Nicotine dependence, unspecified, uncomplicated; F41.9 Anxiety disorder, unspecified; G47.00 Insomnia, unspecified; I27.2 Other secondary pulmonary hypertension; Z99.81 Dependence on supplemental oxygen
CPT/HCPCS: 36415; 36600; 71010; 71275; 76700; 80048; 80053; 82150; 82550; 82553; 82805; 83605; 83690; 83735; 83880; 84100; 84295; 84484; 85025; 85379; 85610; 85730; 87040; 87045; 87046; 87324; 87502; 89055; 93005; 94640; 94660; 94760; 96365; 96366; 96375; 96376; 99291

== ENCOUNTER → 2017-02-10 | Outpatient (CLI) | payer BC ==
[2017-02-10 15:23] LABS: Blood Urea Nitrogen 12 mg/dL (9-20); Non-African American GFR(MDRD) >60 (>60 ml/min/1.73 sqM)
[2017-02-10 15:51] LABS: Prostate Specific Antigen 0.45 ng/mL (0.00-4.00)
== END | disposition home or self-care (01) ==
LOC: LABWHC1 14:13
PROVIDERS: ATTEND Urology
DX: N40.1 Benign prostatic hyperplasia with lower urinary tract symptoms (principal); R31.29 Other microscopic hematuria
CPT/HCPCS: 36415; 82565; 84153; 84520

== ENCOUNTER 2017-06-16 06:25 | Day surgery (SDC) | payer BC ==
[2017-06-14 12:14] VITALS: BMI 25.1
[~2017-06-16 06:25] MED LIST: LACTATED RINGERS 1,000 ML IV SCH; LIDOCAINE 1% 20 ML VIAL (10MG/ML) FOR IV START INTRADERMA PRN; Pre Op ABX Message 1 EACH MISC MISCELLANE ONE
[2017-06-16 06:56] VITALS: TEMP 97.6
[2017-06-16] MEDS ORDERED: PROPOFOL 10 MG/ML 20 ML VIAL IV ONE (07:32)
[2017-06-16 08:05] VITALS: RESP 16
[2017-06-16] MEDS ORDERED: HYDROmorphone 1 MG/ML 1 ML SYRINGE IVP ONE (08:20)
[2017-06-16] MEDS ORDERED: HYDROmorphone 2 MG/ML 1 ML SYRINGE IVP STA (08:20)
--- NOTE | 2017-06-16 08:26 | PCN ---
PROCEDURE NOTE DATE OF PROCEDURE: 06/16/2017 PREOPERATIVE DIAGNOSIS: Metastatic cancer to bone. POSTOPERATIVE DIAGNOSIS: Metastatic cancer to bone. ANESTHESIA: Local with IV systemic sedation. DETAILS: Utilizing sterile technique, the skin overlying the right iliac crest was prepared with Betadine and alcohol. After adequate sterile draping, local anesthesia and systemic sedation, a size 11, 4-inch PEAK Surgicalshidi needle was utilized to access the periosteum with ease. No aspirate could be obtained, 2 cores measuring 1.5 cm were obtained. The patient tolerated the procedure well. There was no immediate procedure related complication. TOTAL BLOOD LOSS: Less than 1 mL. RESULTS: Pending. MMODL / IJN: [id number] /
[2017-06-16 09:05] VITALS: BP 145/85; PULSE 83
[2017-06-16 11:51] LABS: Basophils % (A) 1 %; Eosinophils % (A) 1 %; HCT 43.1 % (39.0-53.0); HGB 14.4 gm/dL (13.0-17.5); Lymphocytes # (A) 1.3 k/uL (1.0-4.8); Lymphocytes % (A) 34 %; MCH 33.9 pg (25.0-35.0); MCHC 33.5 g/dL (31.0-37.0); MCV 101.2 fL (80.0-100.0); Macrocytosis Slight; Mean Platelet Volume 8.1; Monocytes # (A) 0.3 k/uL (0-1.0); Monocytes % (A) 6 %; Neutrophils # (A) 2.1 k/uL (1.3-7.7); Neutrophils % (A) 55 %; Platelet Count 252 k/uL (150-450); RBC 4.26 m/uL (4.30-5.90); RDW 13.6 % (11.5-15.5); WBC 3.9 k/uL (3.8-10.6)
== END 2017-06-16 09:15 | disposition home or self-care (01) ==
LOC: OR 06:25
PROVIDERS: ATTEND Internal Medicine Hematology & Oncology
DX: C79.51 Secondary malignant neoplasm of bone (principal); J44.9 Chronic obstructive pulmonary disease, unspecified; B18.2 Chronic viral hepatitis C; E78.5 Hyperlipidemia, unspecified; M19.90 Unspecified osteoarthritis, unspecified site; C76.0 Malignant neoplasm of head, face and neck; Z80.9 Family history of malignant neoplasm, unspecified; Z80.3 Family history of malignant neoplasm of breast; F17.210 Nicotine dependence, cigarettes, uncomplicated; Z88.7 Allergy status to serum and vaccine
CPT/HCPCS: 38221; 85025; J1170; J2704

== ENCOUNTER → 2017-06-28 | Outpatient (CLI) | payer BC ==
--- NOTE | 2017-06-29 11:17 | XR ---
Bilateral knees HISTORY: Bone metastasis, bilateral knee pain No comparisons 3 views of each knee are submitted on a total of 6 images. Bone mineralization suggests possibly a permeative pattern in the proximal left fibula with some amador ical thickening, right tibia. Alignment is maintained. Mild marginal spurring noted in the lateral co mpartment of the right knee with some mild joint space loss. No sizable joint effusion. IMPRESSION: Mild osteoarthritic changes present in the right knee. There may be an underlying permeat christine pattern, bone scan or MRI may be of benefit.
== END | disposition home or self-care (01) ==
LOC: RADXRMAIN 16:01
PROVIDERS: ATTEND Internal Medicine Hematology & Oncology
DX: C79.51 Secondary malignant neoplasm of bone (principal); M17.11 Unilateral primary osteoarthritis, right knee; C80.1 Malignant (primary) neoplasm, unspecified; J44.9 Chronic obstructive pulmonary disease, unspecified; B18.2 Chronic viral hepatitis C; R06.02 Shortness of breath

== ENCOUNTER → 2017-07-02 | Outpatient (CLI) | payer BC ==
--- NOTE | 2017-07-04 10:50 | PE ---
EXAMINATION TYPE: PET CT fusion skull to thigh DATE OF EXAM: 07/02/2017 COMPARISON: CTA chest August 08, 2016 HISTORY: Lung cancer initial staging study. Initial bone biopsy 3 weeks ago per patient. TECHNIQUE: Following the intravenous administration of 13.1 mCi of F-18 FDG, whole body images are p erformed from the skull base to the midthigh. Images are reviewed on the computer in the coronal, ax ial, and sagittal planes. Reconstructed rotating images are created on independent workstation and r eviewed on the computer. A noncontrast CT is performed in conjunction with the PET scan. SCAN: Initial Scan FINDINGS: SKULL BASE AND NECK: No suspicious hypermetabolic uptake is present CHEST, MEDIASTINUM, AND HILAR REGION: No suspicious hypermetabolic uptake is present. ABDOMEN AND PELVIS: No suspicious hypermetabolic uptake is present. Normal bladder and collecting sys tem uptake is present. OSSEOUS STRUCTURES: No suspicious hypermetabolic uptake is seen. There is diffuse sclerosis throughou t entire visualized thoracic spine with sclerotic areas of involvement seen in bilateral scapula and in the bilateral ribs. Diffuse sclerotic metastatic disease involving the entire pelvis and lumbar sp ine is also noted. No significant hypermetabolic uptake is present. OTHER CT: Cavitary fillings are present. No suspicious lung nodule or mass is identified. No suspicious adrenal masses are seen. There is jose a mesentery appearance with scattered subcentimeter nodules particularly in the left mid abdomen no suspicious hypermetabolic uptake however is seen. There is moderate atherosclerotic change of the abdominal aorta. Some central zone calcifications are seen in normal size prostate gland. A few pelvic phleboliths are seen. There is disc space narrowing lumbosacral junction. IMPRESSION: Diffuse osseous metastatic disease without suspicious hypermetabolic uptake. No suspiciou s hypermetabolic primary mass or neoplasm identified except for left mid abdominal Jose A mesentery ap pearance which does not show hypermetabolic uptake.
== END | disposition home or self-care (01) ==
LOC: RADPETMAIN 07:25
PROVIDERS: ATTEND Internal Medicine Hematology & Oncology
DX: C34.91 Malignant neoplasm of unspecified part of right bronchus or lung (principal); C79.51 Secondary malignant neoplasm of bone
CPT/HCPCS: 78815; A9552

== ENCOUNTER → 2017-07-04 | Outpatient (CLI) | payer BC ==
--- NOTE | 2017-07-04 11:42 | US ---
EXAMINATION TYPE: US venous doppler duplex LE LT DATE OF EXAM: 07/04/2017 10:59 AM COMPARISON: NONE CLINICAL HISTORY: R22.42 SWELLING OF LT LOWER LIMB x 1 month with skin redness lower leg noted by fam gold member x 1 month; metastatic CA per patient SIDE PERFORMED: Left TECHNIQUE: The lower extremity deep venous system is examined utilizing real time linear array sonog dex with graded compression, doppler sonography and color-flow sonography. FINDINGS: VESSELS IMAGED: Common Femoral Vein Deep Femoral Vein Greater Saphenous Vein * Femoral Vein Popliteal Vein Small Saphenous Vein * Proximal Calf Veins Posterior tibial veins (* superficial vessels) Left Leg: Negative for DVT Incidentally, a prominent left groin lymph node is noted = 1.7 x 1.0 x 1.0cm. Tech findings called to Norm at Dr Long's Office at exam's end. JVinnie IMPRESSION: 1. No evidence for DVT within the left lower extremity. 2. Prominent but nonenlarged left inguinal lymph node may be reactive/post inflammatory. Clinically miguel david.
== END | disposition home or self-care (01) ==
LOC: RADUSWWP 10:07
PROVIDERS: ATTEND Internal Medicine Hematology & Oncology
DX: R22.42 Localized swelling, mass and lump, left lower limb (principal)

== ENCOUNTER 2017-08-05 11:05 | Inpatient (IN) | payer BC ==
--- NOTE | 2017-08-05 12:15 | ED ---
General Adult HPI - General Chief complaint: Recheck/Abnormal Lab/Rx Stated complaint: low calcium level Time Seen by Provider: 08/05/17 11:25 Source: patient, RN notes reviewed Mode of arrival: ambulatory Limitations: no limitations - History of Present Illness Initial comments: This is a 57-year-old male who resents to the emergency department with past medical history significant for unknown cancer. Patient states cancers in all of his bones but they don't know where the primary is. Patient states she's been receiving chemotherapy times to his last treatment was on Tuesday. Patient states been feeling severely weak and tired and today he went to his doctor's office they found out his calcium was 3.6. Patient denies any chest pain or difficulty breathing patient denies any recent fever chills or cough per patient denies abdominal pain patient denies any nausea vomiting diarrhea. - Related Data Home Medications Medication Instructions Recorded Confirmed HYDROcodone/APAP 10-325MG [Arg[place] 1 tab PO Q6H PRN 08/05/17 08/05/17 10-325] Ibuprofen [Motrin] 600 mg PO Q6HR PRN 08/05/17 08/05/17 Ondansetron [Zofran] 4 mg PO TID PRN 08/05/17 08/05/17 Allergies Allergy/AdvReac Type Severity Reaction Status Date / Time No Known Allergies Allergy Verified 08/05/17 12:17 Review of Systems ROS Statement: Those systems with pertinent positive or pertinent negative responses have been documented in the HPI. ROS Other: All systems not noted in ROS Statement are negative. Past Medical History Past Medical History: Cancer, COPD, Liver Disease, Pneumonia Additional Past Medical History / Comment(s): hepatitis C, skin cancer, pneumonia 2017, recent hx. hematuria, bone scan positive-metastatic disease- trying to find primary source History of Any Multi-Drug Resistant Organisms: None Reported Past Surgical History: Hernia Repair, Orthopedic Surgery Additional Past Surgical History / Comment(s): testicle removed, toe surg, multiple hernia repairs Past Anesthesia/Blood Transfusion Reactions: No Reported Reaction Additional Past Anesthesia/Blood Transfusion Reaction / Comment(s): difficult IV start Past Psychological History: No Psychological Hx Reported Smoking Status: Current every day smoker - Past Family History Mother Family Medical History: Cancer Sister(s) Family Medical History: Cancer General Exam - General Exam Comments Initial Comments: GENERAL: Patient is well-developed and well-nourished. Patient is nontoxic and well- hydrated and is in mild distress. ENT: Neck is soft and supple. No significant lymphadenopathy is noted. Oropharynx is clear. Moist mucous membranes. Neck has full range of motion without eliciting any pain. EYES: The sclera were anicteric and conjunctiva were pink and moist. Extraocular movements were intact and pupils were equal round and reactive to light. Eyelids were unremarkable. PULMONARY: Unlabored respirations. Good breath sounds bilaterally. No audible rales rhonchi or wheezing was noted. CARDIOVASCULAR: There is a regular rate and rhythm without any murmurs gallops or rubs. ABDOMEN: Soft and nontender with normal bowel sounds. No palpable organomegaly was noted. There is no palpable pulsatile mass. SKIN: Skin is clear with no lesions or rashes and otherwise unremarkable. NEUROLOGIC: Patient is alert and oriented x3. Cranial nerves II through XII are grossly intact. Motor and sensory are also intact. Normal speech, volume and content. Symmetrical smile. MUSCULOSKELETAL: Normal extremities with adequate strength and full range of motion. No lower extremity swelling or edema. No calf tenderness. LYMPHATICS: No significant lymphadenopathy is noted PSYCHIATRIC: Normal psychiatric evaluation. Limitations: no limitations Course Vital Signs 08/05/17 08/05/17 11:21 12:54 Temperature 98.1 F Pulse Rate 88 89 Respiratory 16 16 Rate Blood Pressure 128/73 106/69 O2 Sat by Pulse 99 95 Oximetry Medical Decision Making - Medical Decision Making EKG shows normal sinus rhythm at 80 bpm VA interval is 138 QRSs 80 QT interval 442 QTC is 534. Patient's EKG shows no ST segment elevation or depression or T wave abnormalities are noted. I gave the patient some calcium chloride. I reviewed all the patient's labs that he had done earlier today. I spoke with Dr. Long. I spoke with Dr. Leone. I will admit the patient consult Dr. Long and consult nephrology. I will continue some oral potassium on the floor Disposition Clinical Impression: History of cancer metastatic to bone, Hypocalcemia, Fatigue Disposition: ADMITTED IP TO THIS HOSP Referrals: Cornell Leone DO [Primary Care Provider] - 1-2 days Time of Disposition: 13:29
[2017-08-05] MEDS ORDERED: SODIUM CHLORIDE 0.9% 500 ML IV ONE (12:16)
[2017-08-05] MEDS ORDERED: CALCIUM CHLORIDE 1,000 MG in SODIUM CHLORIDE 0.9% 100 ML IV STA (12:16)
[2017-08-05] MEDS ORDERED: SODIUM CHLORIDE 0.9% 1,000 ML IV ONE (13:29)
[2017-08-05] MEDS ORDERED: CALCIUM CARBONATE 500 MG CHEWABLE PO PRN (13:31)
[2017-08-05] MEDS ORDERED: HYDROcodone/APAP 10-325MG 1 EACH TAB PO PRN (14:49)
[2017-08-05] MEDS ORDERED: ONDANSETRON 4 MG TAB PO PRN (14:49)
[2017-08-05] MEDS ORDERED: LORazepam 0.5 MG TAB PO PRN (14:50)
[2017-08-05 16:07] LABS: ALT 38 U/L (21-72); AST 37 U/L (17-59); Albumin 3.4 g/dL (3.5-5.0); Alkaline Phosphatase 379 U/L (38-126); Anion Gap 11 mmol/L; Blood Urea Nitrogen 8 mg/dL (9-20); Carbon Dioxide 21 mmol/L (22-30); Chloride 102 mmol/L (98-107); Glucose 99 mg/dL (74-99); Sodium 134 mmol/L (137-145); Total Bilirubin 0.4 mg/dL (0.2-1.3); Total Protein 5.8 g/dL (6.3-8.2)
[2017-08-05 16:12] LABS: Calcium 4.3 mg/dL (8.4-10.2)
[2017-08-05] MEDS ORDERED: MAGNESIUM SULFATE-D5W PMX 1 GM in DEXTROSE/WATER 1 100ML.BAG IVPB ONE (18:00)
[2017-08-05] MEDS ORDERED: CALCIUM GLUCONATE 1,000 MG in SODIUM CHLORIDE 0.9% 100 ML IVPB ONE (18:00)
[2017-08-05] MEDS ORDERED: IBUPROFEN 600 MG TAB PO PRN (18:15)
--- NOTE | 2017-08-05 18:28 | P.CONS ---
History of Present Illness - Reason for Consult Consult date: 08/05/17 - History of Present Illness Sukhwinder is a pleasant 57 year old male who is well know to us for treatment of his metastatic cancer, unknown primary. Primary Oncologist Dr. Long. He originally presented to Oncology with Hematuria and lower back pain, the later present X 2-3 months and progressive, Hematuria developed 2 days before presentation. He was suspected of Having UTI > started on antibiotics. I was contacted by Dr Best, ER physician after CT Scan of abdomen/Pelvis revealed mottled apperance of all bones visualized C/W sclerotic metastatic disease, Prostate was enlarged with Heterogenious center with calcifications. The patient is taking Motrin 800mg Tid for pain and is only partially effective, he declined to take narcotics analgesic. 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 Smokes 1-2 PPD X 35 years, consumes 2-3 drinks (Rum) every evening. He stated being diagnosed with Hep-C and not on any antiviral therapy at present. Sukhwinder ststed being evaluated by Dr Sloan over a year ago and told to have no signs of malignancy. All tumor markers negative Had L rib Fx bending forward. Bone marrow aspirate & Biopsy : Dry "tap" > Very fibrotic with high-grade cancer with poor diferentiation. He had Cystoscopy (Dr Sloan) negative, but FISH on urine was positive. He has been undergoing treatment with chemotherapy and Zometa (for metastatic bone pain). He has not been taking po calcium as recommended. He presented today very shakey, complaints of feeling overall weak, fatigue, numbness, tingling. Stat labs were drawn and patients calcium was found to be critically low, therefore he was sent to ED for EKG monitoring and replacement. During hospital assessment he is feeling better. Still symptomatic but lessened. Review of Systems A 14 point review of systems assessed and completed and all neg except HPI Past Medical History Past Medical History: Cancer, COPD, Liver Disease, Pneumonia Additional Past Medical History / Comment(s): hepatitis C, skin cancer, pneumonia 2017, recent hx. hematuria, bone scan positive-metastatic disease- trying to find primary source History of Any Multi-Drug Resistant Organisms: None Reported Past Surgical History: Hernia Repair, Orthopedic Surgery Additional Past Surgical History / Comment(s): testicle removed, toe surg, multiple hernia repairs Past Anesthesia/Blood Transfusion Reactions: No Reported Reaction Additional Past Anesthesia/Blood Transfusion Reaction / Comm: difficult IV start Past Psychological History: No Psychological Hx Reported Smoking Status: Current every day smoker - Past Family History Mother Family Medical History: Cancer Sister(s) Family Medical History: Cancer Medications and Allergies Home Medications Medication Instructions Recorded Confirmed Type HYDROcodone/APAP 10-325MG [Kil[place] 1 tab PO Q6H PRN 08/05/17 08/05/17 History 10-325] Ibuprofen [Motrin] 600 mg PO Q6HR PRN 08/05/17 08/05/17 History Ondansetron [Zofran] 4 mg PO TID PRN 08/05/17 08/05/17 History Allergies Allergy/AdvReac Type Severity Reaction Status Date / Time No Known Allergies Allergy Verified 08/05/17 12:17 Physical Exam Vitals: Vital Signs Temp Pulse Resp BP Pulse Ox 08/05/17 13:58 87 16 140/84 98 08/05/17 12:54 89 16 106/69 95 08/05/17 11:21 98.1 F 88 16 128/73 99 Intake and Output 08/04/17 08/05/17 08/05/17 22:59 06:59 14:59 Other: Weight 78.925 kg - Constitutional General appearance: mild distress, thin - EENT Eyes: poor dentition, normal appearance ENT: normal oropharynx - Neck Neck: normal ROM - Respiratory Respiratory: bilateral: CTA (No increased effort) - Cardiovascular Rhythm: irregularly irregular - Gastrointestinal General gastrointestinal: normal bowel sounds, soft - Integumentary Integumentary: pale - Neurologic [place] sign absent Mild/improved extrapyramidsal symptoms - Musculoskeletal Musculoskeletal: gait normal, generalized weakness, strength equal bilaterally - Psychiatric Psychiatric: A&O x's 3, appropriate affect, intact judgment & insight Results CBC & Chem 7: 08/05/17 15:32 Assessment and Plan (1) History of cancer metastatic to bone Narrative/Plan: 1. Currently receiving Chemotherapy and Zometa for Metastatic cancer. 2. Hold until Calcium resolves 3. Address as outpatient Current Visit: Yes Status: Acute Code(s): Z85.9 - PERSONAL HISTORY OF MALIGNANT NEOPLASM, UNSPECIFIED SNOMED Code(s): 6315616558670865 (2) Hypocalcemia Narrative/Plan: 1. Check Ionized calcium, Check CBC, CMP Mag daily and replace appropriately 2. Nephrology consult to assist in replacement and moniotring. 3. Monitor EKG for cardiac arrythmias. Current Visit: Yes Status: Acute Code(s): E83.51 - HYPOCALCEMIA SNOMED Code(s): 2149811 (3) Hyponatremia Current Visit: No Status: Acute Code(s): E87.1 - HYPO-OSMOLALITY AND HYPONATREMIA SNOMED Code(s): 70489742
[2017-08-06 08:10] LABS: Anisocytosis Slight; Basophils % (A) 0 %; Eosinophils % (A) 1 %; HCT 27.8 % (39.0-53.0); Lymphocytes # (A) 0.6 k/uL (1.0-4.8); Lymphocytes % (A) 26 %; MCH 33.4 pg (25.0-35.0); MCHC 34.8 g/dL (31.0-37.0); Mean Platelet Volume 7.4; Monocytes % (A) 1 %; Neutrophils # (A) 1.7 k/uL (1.3-7.7); Neutrophils % (A) 71 %; RBC 2.89 m/uL (4.30-5.90); RDW 16.1 % (11.5-15.5); WBC 2.4 k/uL (3.8-10.6)
[2017-08-06 08:18] LABS: ALT 40 U/L (21-72); AST 36 U/L (17-59); Albumin 3.2 g/dL (3.5-5.0); Alkaline Phosphatase 371 U/L (38-126); Anion Gap 9 mmol/L; Blood Urea Nitrogen 7 mg/dL (9-20); Carbon Dioxide 22 mmol/L (22-30); Chloride 104 mmol/L (98-107); Glucose 94 mg/dL (74-99); Potassium 4.2 mmol/L (3.5-5.1); Sodium 135 mmol/L (137-145); Total Bilirubin 0.4 mg/dL (0.2-1.3); Total Protein 5.5 g/dL (6.3-8.2)
[2017-08-06 08:28] LABS: Calcium 4.1 mg/dL (8.4-10.2); HGB 9.7 gm/dL (13.0-17.5)
[2017-08-06 08:29] LABS: MCV 96.2 fL (80.0-100.0)
[2017-08-06 09:21] LABS: Ionized Calcium 2.6 mg/dL (4.5-5.3)
[2017-08-06] MEDS ORDERED: CALCIUM GLUCONATE 2,000 MG in SODIUM CHLORIDE 0.9% 100 ML IVPB ONE (09:30)
[2017-08-06 09:44] LABS: Platelet Count 86 k/uL (150-450)
--- NOTE | 2017-08-06 10:24 | P.PN ---
Subjective Progress Note Date: 08/06/17 Principal diagnosis: Metastatic Cancer to bone Patient is feeling better today, Calcium mildly improved. Very anxious and wants to go home Objective - Vital Signs Vital signs: Vital Signs Temp 98.3 F 08/05/17 22:33 Pulse 92 08/05/17 22:33 Resp 18 08/05/17 22:33 BP 132/81 08/05/17 22:33 Pulse Ox 93 L 08/05/17 22:33 Intake & Output 08/05/17 08/06/17 08/06/17 18:59 06:59 18:59 Intake Total 420 Balance 420 Weight 78.925 kg Intake: IV 420 Sodium Chloride 0.9% 1, 300 000 ml @ 75 mls/hr IV . [id number] ONE Rx#:[id number] ns@20 120 - Constitutional General appearance: Present: cooperative, no acute distress - EENT Eyes: Present: dentition normal, normal appearance ENT: Present: NA/AT, normal oropharynx - Neck Neck: Present: normal ROM - Respiratory Respiratory: bilateral: CTA (No increased effort) - Cardiovascular Rhythm: regular - Gastrointestinal General gastrointestinal: Present: normal bowel sounds, soft - Integumentary Integumentary: Present: pale - Neurologic Neurologic Comment(s): No focal defects Neurologic: Present: CNII-XII intact - Musculoskeletal Musculoskeletal: Present: generalized weakness, strength equal bilaterally - Psychiatric Psychiatric: Present: A&O x's 3, appropriate affect, intact judgment & insight - Labs CBC & Chem 7: 08/06/17 07:08 08/06/17 07:08 Labs: Abnormal Lab Results - Last 24 Hours (Table) 08/05/17 08/06/17 08/06/17 Range/Units 15:32 07:08 07:08 WBC 2.4 L (3.8-10.6) k/uL RBC 2.89 L (4.30-5.90) m/uL Hgb 9.7 L D (13.0-17.5) gm/dL Hct 27.8 L (39.0-53.0) % RDW 16.1 H (11.5-15.5) % Sodium 134 L 135 L (137-145) mmol/L Carbon Dioxide 21 L (22-30) mmol/L BUN 8 L 7 L (9-20) mg/dL Creatinine 0.50 L 0.42 L (0.66-1.25) mg/dL Calcium 4.3 L* 4.1 L* (8.4-10.2) mg/dL Alkaline Phosphatase 379 H 371 H (38-126) U/L Total Protein 5.8 L 5.5 L (6.3-8.2) g/dL Albumin 3.4 L 3.2 L (3.5-5.0) g/dL Assessment and Plan (1) History of cancer metastatic to bone Narrative/Plan: 1. Currently receiving Chemotherapy and Zometa for Metastatic cancer. 2. Hold until Calcium resolves 3. Address as outpatient Current Visit: Yes Status: Acute Code(s): Z85.9 - PERSONAL HISTORY OF MALIGNANT NEOPLASM, UNSPECIFIED SNOMED Code(s): 2519147758487371 (2) Hypocalcemia Narrative/Plan: 1. Check Ionized calcium, Check CBC, CMP Mag daily and replace appropriately 2. Nephrology consult to assist in replacement and moniotring. 3. Monitor EKG for cardiac arrythmias. 4. Await ionized calium today, please monitor magnesium daily as well 5. Other etiology for hypocalcemia that need to be considered is infection. Please monitor for s/s of infection. 6. Add vitamin D daily as well. 7. Calcium 4.3 today - 2 grams Caclium gluconate IV ordered, continue PO Calcium. 8. Await nephrology recs. 9. May go home after calcium greater than 5.5 and cleared nephrology Current Visit: Yes Status: Acute Code(s): E83.51 - HYPOCALCEMIA SNOMED Code(s): 5757241 (3) Hyponatremia Current Visit: No Status: Acute Code(s): E87.1 - HYPO-OSMOLALITY AND HYPONATREMIA SNOMED Code(s): 82325293
[2017-08-06 10:47] LABS: Basophils % (A) 0 %; Eosinophils % (A) 1 %; HCT 29.6 % (39.0-53.0); HGB 9.8 gm/dL (13.0-17.5); Lymphocytes # (A) 0.6 k/uL (1.0-4.8); Lymphocytes % (A) 28 %; MCH 32.5 pg (25.0-35.0); MCHC 33.3 g/dL (31.0-37.0); MCV 97.6 fL (80.0-100.0); Macrocytosis Slight; Mean Platelet Volume 8.5; Monocytes % (A) 1 %; Neutrophils # (A) 1.5 k/uL (1.3-7.7); Neutrophils % (A) 68 %; RBC 3.03 m/uL (4.30-5.90); RDW 15.7 % (11.5-15.5); WBC 2.2 k/uL (3.8-10.6)
--- NOTE | 2017-08-06 10:52 | P.HPIM ---
History of Present Illness Patient is a very pleasant 57-year-old gentleman was receiving chemotherapy at the outset patient infusion center found to be severely weak because of which basic metabolic profile was obtained which showed extremely low calcium with extremely low ionized calcium patient is taking zoledronic acid for bony metastatic disease patient has unknown primary and receiving chemotherapy. Patient denied any fever chills nausea vomiting abdominal pain. Patient calcium improved patient is on oral calcium supplementation along with calcium gluconate. PDH levels were obtained and will also order vitamin D 25 levels. Review of Systems REVIEW OF SYSTEMS: CONSTITUTIONAL: fatigue. HEENT: No recent visual problems or hearing problems. Denied any sore throat. CARDIOVASCULAR: No chest pain, orthopnea, PND, no palpitations, no syncope. PULMONARY: No shortness of breath, no cough, no hemoptysis. GASTROINTESTINAL: No diarrhea, no nausea, no vomiting, no abdominal pain. Normoactive bowel sounds. NEUROLOGICAL: No headaches, no weakness, no numbness. HEMATOLOGICAL: Denies any bleeding or petechiae. GENITOURINARY: Denies any burning micturition, frequency, or urgency. MUSCULOSKELETAL/RHEUMATOLOGICAL: Denies any joint pain, swelling, or any muscle pain. ENDOCRINE: Denies any polyuria or polydipsia. The rest of the 14-point review of systems is negative. Past Medical History Past Medical History: Cancer, COPD, Liver Disease, Pneumonia Additional Past Medical History / Comment(s): hepatitis C, skin cancer, pneumonia 2017, recent hx. hematuria, bone scan positive-metastatic disease- trying to find primary source History of Any Multi-Drug Resistant Organisms: None Reported Past Surgical History: Hernia Repair, Orthopedic Surgery Additional Past Surgical History / Comment(s): testicle removed, toe surg, multiple hernia repairs Past Anesthesia/Blood Transfusion Reactions: No Reported Reaction Additional Past Anesthesia/Blood Transfusion Reaction / Comment(s): difficult IV start Past Psychological History: No Psychological Hx Reported Smoking Status: Current every day smoker - Past Family History Mother Family Medical History: Cancer Additional Family Medical History / Comment(s): Unknown type of cancer. Pt is adopted. Sister(s) Family Medical History: Cancer Additional Family Medical History / Comment(s): Unknown type of cancer Medications and Allergies Home Medications Medication Instructions Recorded Confirmed Type HYDROcodone/APAP 10-325MG [[place] 1 tab PO Q6H PRN 08/05/17 08/05/17 History 10-325] Ibuprofen [Motrin] 600 mg PO Q6HR PRN 08/05/17 08/05/17 History Ondansetron [Zofran] 4 mg PO TID PRN 08/05/17 08/05/17 History Allergies Allergy/AdvReac Type Severity Reaction Status Date / Time No Known Allergies Allergy Verified 08/05/17 12:17 Physical Exam Vitals: Vital Signs Temp Pulse Pulse Resp BP BP BP 08/06/17 07:00 98.6 F 86 18 133/76 08/05/17 22:33 98.3 F 92 18 132/81 08/05/17 13:58 87 16 140/84 08/05/17 12:54 89 16 106/69 08/05/17 11:21 98.1 F 88 16 128/73 Pulse Ox 08/06/17 07:00 97 08/05/17 22:33 93 L 08/05/17 13:58 98 08/05/17 12:54 95 08/05/17 11:21 99 Intake and Output 08/05/17 08/06/17 08/06/17 22:59 06:59 14:59 Intake Total 300 120 Balance 300 120 Intake: IV 300 120 Sodium Chloride 0.9% 1, 300 000 ml @ 75 mls/hr IV . [id number] ONE Rx#:[id number] ns@20 120 Other: Weight 78.925 kg PHYSICAL EXAMINATION: GENERAL: The patient is alert and oriented x3, not in any acute distress. Well developed, well nourished. HEENT: Pupils are round and equally reacting to light. EOMI. No scleral icterus. No conjunctival pallor. Normocephalic, atraumatic. No pharyngeal erythema. No thyromegaly. CARDIOVASCULAR: S1 and S2 present. No murmurs, rubs, or gallops. PULMONARY: Chest is clear to auscultation, no wheezing or crackles. ABDOMEN: Soft, nontender, nondistended, normoactive bowel sounds. No palpable organomegaly. MUSCULOSKELETAL: No joint swelling or deformity. EXTREMITIES: No cyanosis, clubbing, or pedal edema. NEUROLOGICAL: Gross neurological examination did not reveal any focal deficits. SKIN: No rashes. Results CBC & Chem 7: 08/06/17 07:08 08/06/17 07:08 Labs: Abnormal Lab Results - Last 24 Hours (Table) 08/05/17 08/06/17 08/06/17 Range/Units 15:32 07:08 07:08 WBC 2.4 L (3.8-10.6) k/uL RBC 2.89 L (4.30-5.90) m/uL Hgb 9.7 L D (13.0-17.5) gm/dL Hct 27.8 L (39.0-53.0) % RDW 16.1 H (11.5-15.5) % Plt Count 86 L D (150-450) k/uL Lymphocytes # 0.6 L (1.0-4.8) k/uL Sodium 134 L 135 L (137-145) mmol/L Carbon Dioxide 21 L (22-30) mmol/L BUN 8 L 7 L (9-20) mg/dL Creatinine 0.50 L 0.42 L (0.66-1.25) mg/dL Calcium 4.3 L* 4.1 L* (8.4-10.2) mg/dL Ionized Calcium Oskar 2.6 L* (4.5-5.3) mg/dL Alkaline Phosphatase 379 H 371 H (38-126) U/L Total Protein 5.8 L 5.5 L (6.3-8.2) g/dL Albumin 3.4 L 3.2 L (3.5-5.0) g/dL Thrombosis Risk Factor Assmnt - Choose All That Apply Any of the Below Risk Factors Present?: Yes Each Factor Represents 1 point: Abnormal pulmonary function (COPD), Age 41-60 years Other Risk Factors: Yes Each Risk Factor Represents 2 Points: Malignancy Other congenital or acquired thrombophilia - If yes, enter type in comment: No Thrombosis Risk Factor Assessment Total Risk Factor Score: 4 Thrombosis Risk Factor Assessment Level: Moderate Risk Assessment and Plan Plan: -Extreme fatigue: Secondary to hypocalcemia which is again secondary to probably resolving chronic acid he is receiving. Dietary calcium supplementation along as mentioned above further workup as mentioned above patient probably will be able to be discharged tomorrow. -Cancer unknown primary -History of hepatitis C -COPD without any acute exacerbation For above-mentioned chronic medical problems patient will be resumed and continued on appropriate
[2017-08-06 11:01] LABS: Platelet Count 88 k/uL (150-450)
[2017-08-06 11:14] LABS: Magnesium 1.9 mg/dL (1.6-2.3)
--- NOTE | 2017-08-06 11:23 | P.NPCON ---
History of Present Illness - History of Present Illness Reason for consultation hypocalcemia History of present illness: Patient is a 57-year-old male seen in renal consultation for hypocalcemia. Patient has history of metastatic disease to the bone with unknown primary and follows with oncology as an outpatient. Patient went for IV hydration as an outpatient but had further blood work done due to tingling which was generalized. Further workup revealed a calcium level of 3.8 for which she was sent to the hospital for further care. Patient is receiving IV calcium. Patient did also receive Zometa as part of his chemotherapy regimen last Tuesday. I don't see any loop diuretics and his home medications. He denies any history of parathyroidectomy. He denies any radiation into his neck. No edema. Admits to good urine output. No vomiting or diarrhea. GFR is at baseline with creatinine is 0.42 today. Denies chest pain or shortness of breath. Patient was having generalized tingling which has now significantly improved. Currently resting in bed. No active complaints at this time. No abdominal pain. No melena or hematochezia. Hemodynamically stable. Vital signs are stable. General: The patient appeared well nourished and normally developed. HEENT: Head exam is unremarkable. Neck is without jugular venous distension. LUNGS: Lungs are clear to auscultation and percussion. Breath sounds decreased. HEART: Rate and Rhythm are regular. First and second heart sounds normal. No murmurs, rubs or gallops. ABDOMEN: Abdominal exam reveals normal bowel sounds. Non-tender and non- distended. No evidence of peritonitis. EXTREMITITES: No clubbing, cyanosis, or edema. Past Medical History Past Medical History: Cancer, COPD, Liver Disease, Pneumonia Additional Past Medical History / Comment(s): hepatitis C, skin cancer, pneumonia 2017, recent hx. hematuria, bone scan positive-metastatic disease- trying to find primary source History of Any Multi-Drug Resistant Organisms: None Reported Past Surgical History: Hernia Repair, Orthopedic Surgery Additional Past Surgical History / Comment(s): testicle removed, toe surg, multiple hernia repairs Past Anesthesia/Blood Transfusion Reactions: No Reported Reaction Additional Past Anesthesia/Blood Transfusion Reaction / Comment(s): difficult IV start Past Psychological History: No Psychological Hx Reported Smoking Status: Current every day smoker - Past Family History Mother Family Medical History: Cancer Additional Family Medical History / Comment(s): Unknown type of cancer. Pt is adopted. Sister(s) Family Medical History: Cancer Additional Family Medical History / Comment(s): Unknown type of cancer Medications and Allergies Home Medications Medication Instructions Recorded Confirmed Type HYDROcodone/APAP 10-325MG [[place] 1 tab PO Q6H PRN 08/05/17 08/05/17 History 10-325] Ibuprofen [Motrin] 600 mg PO Q6HR PRN 08/05/17 08/05/17 History Ondansetron [Zofran] 4 mg PO TID PRN 08/05/17 08/05/17 History Allergies Allergy/AdvReac Type Severity Reaction Status Date / Time No Known Allergies Allergy Verified 08/05/17 12:17 Physical Exam Vitals: Vital Signs Temp Pulse Pulse Resp BP BP BP 08/06/17 07:00 98.6 F 86 18 133/76 08/05/17 22:33 98.3 F 92 18 132/81 08/05/17 13:58 87 16 140/84 08/05/17 12:54 89 16 106/69 08/05/17 11:21 98.1 F 88 16 128/73 Pulse Ox 08/06/17 07:00 97 08/05/17 22:33 93 L 08/05/17 13:58 98 08/05/17 12:54 95 08/05/17 11:21 99 Intake and Output 08/05/17 08/06/17 08/06/17 22:59 06:59 14:59 Intake Total 300 120 Balance 300 120 Intake: IV 300 120 Sodium Chloride 0.9% 1, 300 000 ml @ 75 mls/hr IV . [id number] ONE Rx#:[id number] ns@20 120 Other: Weight 78.925 kg Results - Lab Results Most recent lab results Calcium 4.1 mg/dL (8.4-10.2) L* 08/06/17 07:08 Magnesium 1.9 mg/dL (1.6-2.3) 08/06/17 07:08 08/06/17 10:34 08/06/17 07:08 Assessment and Plan Plan: Assessment: #1. 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 Calcium level was 3.8 on admission and 9 as calcium is noted to be low at 2.6. Further workup including PTH and vitamin D pending at this time. He was magnesium and replete. #2. Metastatic bone disease with unknown primary being followed by oncology. #3. Anemia related to underlying malignancy. Rule out iron deficiency. Plan: Patient receiving 2 g of calcium gluconate today. Add Os-Shabbir D 500 3 times daily. Follow-up PTH and vitamin D levels. I will also check phosphorus and 125 D3 levels. Check iron studies. Thank you for the consultation. I will continue to follow the patient with you during his hospital stay.
[2017-08-06] MEDS: CHOLECALCIFEROL 1,000 UNIT TAB PO SCH (12:25)
[2017-08-06] MEDS: CALCIUM CARB-VIT D 500MG-200UN 1 EACH TAB PO SCH ×2 (12:25→16:38)
[2017-08-06 14:07] VITALS: BMI 25.7
[2017-08-06 17:02] LABS: Iron Saturation 62.41 (15.00-50.00)
[2017-08-06 23:14] VITALS: TEMP 98.7
[2017-08-07 07:32] LABS: Basophils % (A) 0 %; Eosinophils % (A) 1 %; HCT 28.6 % (39.0-53.0); HGB 10.2 gm/dL (13.0-17.5); Lymphocytes # (A) 0.8 k/uL (1.0-4.8); Lymphocytes % (A) 37 %; MCHC 35.7 g/dL (31.0-37.0); Mean Platelet Volume 8.5; Monocytes % (A) 2 %; Neutrophils # (A) 1.3 k/uL (1.3-7.7); Neutrophils % (A) 57 %; RBC 3.01 m/uL (4.30-5.90); RDW 15.9 % (11.5-15.5); WBC 2.2 k/uL (3.8-10.6)
[2017-08-07 07:39] LABS: Platelet Count 75 k/uL (150-450)
[2017-08-07 07:47] LABS: ALT 41 U/L (21-72); AST 32 U/L (17-59); Albumin 3.4 g/dL (3.5-5.0); Alkaline Phosphatase 397 U/L (38-126); Anion Gap 9 mmol/L; Blood Urea Nitrogen 6 mg/dL (9-20); Carbon Dioxide 22 mmol/L (22-30); Chloride 102 mmol/L (98-107); Glucose 100 mg/dL (74-99); Magnesium 1.8 mg/dL (1.6-2.3); Sodium 133 mmol/L (137-145); Total Bilirubin 0.5 mg/dL (0.2-1.3); Total Protein 5.8 g/dL (6.3-8.2)
[2017-08-07] MEDS: CALCIUM CARB-VIT D 500MG-200UN 1 EACH TAB PO SCH ×2 (07:58→11:15)
[2017-08-07 08:00] LABS: Calcium 4.5 mg/dL (8.4-10.2)
[2017-08-07 08:04] VITALS: BP 119/75; PULSE 85; RESP 18
[2017-08-07 08:08] LABS: Ionized Calcium 2.7 mg/dL (4.5-5.3)
[2017-08-07] MEDS ORDERED: LORazepam 1 MG TAB PO STA (10:28)
--- NOTE | 2017-08-07 10:33 | P.DS ---
Providers Date of admission: 08/05/17 13:29 Attending physician: Cornell Leone Consults: 08/05/17 13:29 Consult Physician Urgent Consulting Provider: Basilio Long Consult Reason/Comments: Metastatic cancer to the bone Do you want consulting provider notified?: Yes Consult Physician Urgent Consulting Provider: Shayla Barba Consult Reason/Comments: Hypocalcemia Do you want consulting provider notified?: Yes Primary care physician: Cornell Leone [place] Hospital Course: Patient is a very pleasant 57-year-old gentleman was receiving chemotherapy at the outset patient infusion center found to be severely weak because of which basic metabolic profile was obtained which showed extremely low calcium with extremely low ionized calcium patient is taking zoledronic acid for bony metastatic disease patient has unknown primary and receiving chemotherapy. Patient denied any fever chills nausea vomiting abdominal pain. Patient calcium improved patient is on oral calcium supplementation along with calcium gluconate. PDH levels were obtained and will also order vitamin D 25 levels. 08/07/2017 Patient's calcium remained stable but didn't go up much will give him mild couple more doses of calcium gluconate if cleared by nephrology patient will be discharged patient's vitamin levels are low. Patient's symptoms of fatigue completely resolved and wanted to go home PHYSICAL EXAMINATION: GENERAL: The patient is alert and oriented x3, not in any acute distress. Well developed, well nourished. HEENT: Pupils are round and equally reacting to light. EOMI. No scleral icterus. No conjunctival pallor. Normocephalic, atraumatic. No pharyngeal erythema. No thyromegaly. CARDIOVASCULAR: S1 and S2 present. No murmurs, rubs, or gallops. PULMONARY: Chest is clear to auscultation, no wheezing or crackles. ABDOMEN: Soft, nontender, nondistended, normoactive bowel sounds. No palpable organomegaly. MUSCULOSKELETAL: No joint swelling or deformity. EXTREMITIES: No cyanosis, clubbing, or pedal edema. NEUROLOGICAL: Gross neurological examination did not reveal any focal deficits. SKIN: No rashes. Assessment and Plan Plan: -Extreme fatigue: Secondary to hypocalcemia which is again secondary to probably secondary to Zolendrinic acid. -Cancer unknown primary -History of hepatitis C -COPD without any acute exacerbation Plan - Discharge Summary Discharge Rx Participant: No New Discharge Prescriptions: New Calcium Carb-Vit D 500Mg-200Un [[place] 500+D] 1 each PO QID #100 tablet No Action Ondansetron [Zofran] 4 mg PO TID PRN PRN Reason: Nausea Ibuprofen [Motrin] 600 mg PO Q6HR PRN PRN Reason: Pain HYDROcodone/APAP 10-325MG [[place] 10-325] 1 tab PO Q6H PRN PRN Reason: Pain Discharge Medication List HYDROcodone/APAP 10-325MG [[place] 10-325] 1 tab PO Q6H PRN 08/05/17 [History] Ibuprofen [Motrin] 600 mg PO Q6HR PRN 08/05/17 [History] Ondansetron [Zofran] 4 mg PO TID PRN 08/05/17 [History] Calcium Carb-Vit D 500Mg-200Un [[place] 500+D] 1 each PO QID #100 tablet 08/07/17 [Rx] Follow up Appointment(s)/Referral(s): Cornell Leone DO [Primary Care Provider] - 3 Days Discharge Disposition: HOME SELF-CARE
[2017-08-07] MEDS: CHOLECALCIFEROL 1,000 UNIT TAB PO SCH (11:15)
--- NOTE | 2017-08-07 11:20 | P.PN ---
Subjective Patient is seen in follow-up for hypocalcemia. Calcium level is up to 4.5 today. He is currently resting in bed. Denies any chest pain or shortness of breath. Denies any tingling. He is eager to go home. Vital signs are stable. General: The patient appeared well nourished and normally developed. HEENT: Head exam is unremarkable. Neck is without jugular venous distension. LUNGS: Lungs are clear to auscultation and percussion. Breath sounds decreased. HEART: Rate and Rhythm are regular. First and second heart sounds normal. No murmurs, rubs or gallops. ABDOMEN: Abdominal exam reveals normal bowel sounds. Non-tender and non- distended. No evidence of peritonitis. EXTREMITITES: No clubbing, cyanosis, or edema. Objective - Vital Signs Vital signs: Vital Signs Temp 98.7 F 08/07/17 07:00 Pulse 85 08/07/17 08:00 Resp 18 08/07/17 08:00 BP 119/75 08/07/17 07:00 Pulse Ox 99 08/07/17 07:00 Intake & Output 08/06/17 08/07/17 08/07/17 18:59 06:59 18:59 Intake Total 260 Balance 260 Weight 78.925 kg Intake: IV 160 ns@20 160 Intake, IV Titration 100 Amount Calcium Gluconate 2,000 100 mg In Sodium Chloride 0.9 % 100 ml @ 100 mls/hr IVPB ONCE ONE Rx#: [id number] Other: # Voids 2 - Labs CBC & Chem 7: 08/07/17 06:58 08/07/17 06:58 Labs: Abnormal Lab Results - Last 24 Hours (Table) 08/06/17 08/06/17 08/07/17 Range/Units 10:34 10:34 06:58 WBC (3.8-10.6) k/uL RBC (4.30-5.90) m/uL Hgb (13.0-17.5) gm/dL Hct (39.0-53.0) % RDW (11.5-15.5) % Plt Count (150-450) k/uL Lymphocytes # (1.0-4.8) k/uL Sodium 133 L (137-145) mmol/L BUN 6 L (9-20) mg/dL Creatinine 0.39 L (0.66-1.25) mg/dL Glucose 100 H (74-99) mg/dL Calcium 4.5 L* (8.4-10.2) mg/dL Ionized Calcium Oskar 2.7 L* (4.5-5.3) mg/dL Iron 181 H (65-175) ug/dL Iron Saturation 62.41 H (15.00-50.00) Ferritin 1707.9 H (22.0-322.0) ng/mL Alkaline Phosphatase 397 H (38-126) U/L Total Protein 5.8 L (6.3-8.2) g/dL Albumin 3.4 L (3.5-5.0) g/dL Vitamin D 25-Hydroxy 25.3 L (30.0-100.0) ng/mL 08/07/17 Range/Units 06:58 WBC 2.2 L (3.8-10.6) k/uL RBC 3.01 L (4.30-5.90) m/uL Hgb 10.2 L (13.0-17.5) gm/dL Hct 28.6 L (39.0-53.0) % RDW 15.9 H (11.5-15.5) % Plt Count 75 L (150-450) k/uL Lymphocytes # 0.8 L (1.0-4.8) k/uL Sodium (137-145) mmol/L BUN (9-20) mg/dL Creatinine (0.66-1.25) mg/dL Glucose (74-99) mg/dL Calcium (8.4-10.2) mg/dL Ionized Calcium Oskar (4.5-5.3) mg/dL Iron (65-175) ug/dL Iron Saturation (15.00-50.00) Ferritin (22.0-322.0) ng/mL Alkaline Phosphatase (38-126) U/L Total Protein (6.3-8.2) g/dL Albumin (3.5-5.0) g/dL Vitamin D 25-Hydroxy (30.0-100.0) ng/mL Assessment and Plan Plan: Assessment: #1. 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 Calcium level was 3.8 on admission and ionized calcium was noted to be low at 2.6. He was magnesium and replete. #2. Metastatic bone disease with unknown primary being followed by oncology. #3. Anemia related to underlying malignancy. Iron replete. #4. Vitamin D insufficiency. Plan: Patient receiving 2 g of calcium gluconate today. Continue Os-Shabbir D 500 3 times daily. Drisdol 50,000 units orally once today. Follow-up PTH level. Patient is very eager to go home today. He has an appointment with oncology later this week and will get repeat blood work done then. He will also need to follow-up as an outpatient in CKD clinic in the next 1-2 weeks. Avoid bisphosphonates.
[2017-08-07] MEDS ORDERED: ERGOCALCIFEROL 50,000 UNIT CAP PO ONE (12:00)
[2017-08-07] MEDS ORDERED: CALCIUM GLUCONATE 2,000 MG in SODIUM CHLORIDE 0.9% 100 ML IVPB ONE ×4 (12:00)
== END 2017-08-07 13:25 | disposition home or self-care (01) | DRG 641 ==
LOC: EC 11:05 → 5ONC 13:29
PROVIDERS: ADMIT Family Medicine; ATTEND Family Medicine
DX: E83.51 Hypocalcemia (principal); C79.51 Secondary malignant neoplasm of bone; C80.1 Malignant (primary) neoplasm, unspecified; E87.1 Hypo-osmolality and hyponatremia; G89.3 Neoplasm related pain (acute) (chronic); E55.9 Vitamin D deficiency, unspecified; D63.0 Anemia in neoplastic disease; B19.20 Unspecified viral hepatitis C without hepatic coma; T50.995A Adverse effect of other drugs, medicaments and biological substances, initial encounter; J44.9 Chronic obstructive pulmonary disease, unspecified; F17.210 Nicotine dependence, cigarettes, uncomplicated; Z92.21 Personal history of antineoplastic chemotherapy; Z85.828 Personal history of other malignant neoplasm of skin; Z90.79 Acquired absence of other genital organ(s); Z87.01 Personal history of pneumonia (recurrent)
CPT/HCPCS: 80053; 82306; 82330; 82652; 82728; 83540; 83550; 83735; 83970; 84100; 85025; 87040; 93005; 96365; 99284

== ENCOUNTER → 2017-09-03 | Outpatient (CLI) | payer BC ==
--- NOTE | 2017-09-03 19:21 | PE ---
EXAMINATION TYPE: PET CT fusion skull to thigh DATE OF EXAM: 09/03/2017 COMPARISON: Prior PET/CT July 02, 2017. Prior CTA chest August 08, 2016 HISTORY: Unknown cancer progress study . Completed chemotherapy August 22, 2017. TECHNIQUE: Following the intravenous administration of 12.864 mCi of F-18 FDG, whole body images are performed from the skull base to the midthigh. Images are reviewed on the computer in the coronal, axial, and sagittal planes. Reconstructed rotating images are created on independent workstation and reviewed on the computer. A noncontrast CT is performed in conjunction with the PET scan. SCAN: Subsequent Scan FINDINGS: SKULL BASE AND NECK: No suspicious hypermetabolic uptake. CHEST, MEDIASTINUM, AND HILAR REGION: No ultrasound hypermetabolic uptake. ABDOMEN AND PELVIS: No suspicious hypermetabolic uptake. OSSEOUS STRUCTURES: No suspicious hypermetabolic uptake. There is redemonstration of diffuse sclerosi s of osseous structures most prominent in the cervical and thoracic spine with sternal and bilateral rib involvement and involvement of bilateral scapula. There is diffuse involvement in the lumbar spin e and pelvis with involvement in both femurs and humeri identified slightly less prominent. OTHER CT: There is new right subclavian Mediport catheter with tip in right atrium. There is moderate calcified plaque of aorta extending into pelvic branch vessels. Mild haziness of left-sided mesentery with scattered subcentimeter lymph nodes near axial image 173 r emains present, not significant changed from prior. Some central zone calcifications are seen in nonenlarged prostate gland, there is eccentric wall thic kening posterior right bladder wall measuring up to 15 mm, this could be product of chemotherapy, oth er etiologies are not excluded such as cystitis or neoplasm. Correlate clinically. Few scattered pelv ic phleboliths are present. IMPRESSION: Diffuse sclerotic osseous metastatic disease redemonstrated without suspicious hypermetab olic uptake. Stable jose a mesentery appearance. New eccentric bladder wall thickening noted without a bnormal hypermetabolic uptake, consider product of recent chemotherapy. Other etiologies not excluded . Correlate clinically. No new areas of suspicious hypermetabolic uptake noted.
== END | disposition home or self-care (01) ==
LOC: RADPETMAIN 16:31
PROVIDERS: ATTEND Internal Medicine Hematology & Oncology
DX: C79.51 Secondary malignant neoplasm of bone (principal); C34.91 Malignant neoplasm of unspecified part of right bronchus or lung; N32.89 Other specified disorders of bladder; C80.0 Disseminated malignant neoplasm, unspecified
CPT/HCPCS: 78815; A9552

== ENCOUNTER 2017-10-24 15:20 | Day surgery (SDC) | payer BC ==
--- NOTE | 2017-10-25 09:19 | IR ---
Fluoroscopic portogram([facility]). HISTORY: Device malfunction. The patient presented to the CVL with a Mehta needle within the port. Preliminary fluoroscopy demonst rated the catheter to be intact. No evidence of extravasation or obstruction.. 0.2 minutes of fluo roscopy utilized. The port was intact. IMPRESSION: 1. No obstruction or extravasation. See above.
== END 2017-10-24 16:50 | disposition home or self-care (01) ==
LOC: CATHCVL 15:20
PROVIDERS: ATTEND Radiology Diagnostic Radiology
DX: T82.514A Breakdown (mechanical) of infusion catheter, initial encounter (principal); R52 Pain, unspecified; Z88.7 Allergy status to serum and vaccine
CPT/HCPCS: 36598; C1769

== ENCOUNTER → 2017-10-24 | Outpatient (CLI) | payer BC ==
--- NOTE | 2017-10-24 15:55 | US ---
EXAMINATION TYPE: US chest DATE OF EXAM: 10/24/2017 COMPARISON: NONE CLINICAL HISTORY: R22.2 Swelling T85.638 Drainage. Redness at port site on right chest and is very pa inful Right anterior chest scanned at site of port that has been in place since May 2017. Over the past few weeks it is increased in pain and redness. Very small tract seen by ultrasound on lateral portion of port, at redness. Probable infection versus other etiology. IMPRESSIONS: 1. There is a low dense collection adjacent to an echogenic area which may be infection. An underlyin g abscess is not identified. Treatment and follow-up is recommended.
== END | disposition home or self-care (01) ==
LOC: RADUSMAIN 15:23
PROVIDERS: ATTEND Internal Medicine Hematology & Oncology
DX: R91.8 Other nonspecific abnormal finding of lung field (principal); R22.2 Localized swelling, mass and lump, trunk
CPT/HCPCS: 76604

== ENCOUNTER → 2017-11-08 | Outpatient (CLI) | payer BC ==
--- NOTE | 2017-11-08 13:10 | MR ---
EXAMINATION TYPE: MR brain wo/w con DATE OF EXAM: 11/08/2017 12:53 PM COMPARISON: NONE HISTORY: Blurred vision, lung cancer pulmonary with known osseous metastases. CONTRAST: Gadavist 7.5 mL Multiplanar and multispin-echo imaging of the brain was performed . Pre and post contrast enhanced i mages are obtained. The ventricles, basal cisterns and sulci overlying the cerebral convexities are mildly enlarged. There is evidence of minimal periventricular white matter ischemic demyelination. Remote deep white matter insults are also noted. No acute edema is seen on diffusion weighted imaging. There is no evidence for midline shift or mass effect. Acute intracranial hemorrhage or extra-axial collection is not evident. No enhancing lesions are seen. The paranasal sinuses and mastoid air cells are well-aerated. IMPRESSION: Age-related atrophic and chronic small vessel ischemic change. No acute intracranial process at this time. No enhancing lesions are seen.
== END | disposition home or self-care (01) ==
LOC: RADMRIMAIN 12:01
PROVIDERS: ATTEND Internal Medicine Hematology & Oncology
DX: G31.9 Degenerative disease of nervous system, unspecified (principal); I67.82 Cerebral ischemia; C80.0 Disseminated malignant neoplasm, unspecified; H53.9 Unspecified visual disturbance
CPT/HCPCS: 70553; A9581

== ENCOUNTER → 2017-11-08 | Outpatient (CLI) | payer BC ==
--- NOTE | 2017-11-08 15:11 | CT ---
EXAMINATION TYPE: CT abdomen pelvis w con DATE OF EXAM: 11/08/2017 COMPARISON: NONE HISTORY: Right lower quadrant pain. CT DLP: 560.3 mGycm Automated exposure control for dose reduction was used. TECHNIQUE: Helical acquisition of images from the lung bases through the pelvis have been completed. CONTRAST: Performed with Oral Contrast and with IV Contrast, patient injected with 100 mL of Isovue M300. FINDINGS: LUNG BASES: No significant abnormality is appreciated. AORTA: No significant abnormality is appreciated. LIVER/GB: No significant abnormality is appreciated. PANCREAS: No significant abnormality is seen. SPLEEN: No significant abnormality is seen. ADRENALS: No significant abnormality is seen. KIDNEYS: Question some delayed excretion into the renal collecting system appears mildly prominent, t here may be ureteropelvic junction stenoses, the ureters course medially but are not dilated, no defi nite stone present. REPRODUCTIVE ORGANS: Prostate shows some calcification. BOWEL: Nonspecific colonic wall thickening is noted.. Mesenteric fat shows some groundglass opacity, small nonenlarged nodes, correlate for possible sclerosing mesenteritis. FREE AIR: No Free Air visible. ASCITES: None visible. PELVIC ADENOPATHY: None visualized. RETROPERITONEAL ADENOPATHY: No Retroperitoneal Adenopathy visible, some increased attenuation presen t in the retroperitoneal fat however at the level of the distal aorta, axial image 42. URINARY BLADDER: No significant abnormality is seen. OSSEOUS STRUCTURES: Diffuse sclerotic density present involving the skeleton. IMPRESSION: CONSIDER SCLEROSING MESENTERITIS, RETROPERITONEAL FIBROSIS, SCLEROTIC DENSITY IN THE BONES SUGGEST ME TASTATIC DISEASE, CORRELATE FOR POSSIBLE PROSTATE CARCINOMA, additional findings above, delayed excre tion possible within the kidneys, follow-up recommended
== END | disposition home or self-care (01) ==
LOC: RADPROMAIN 12:15
PROVIDERS: ATTEND Internal Medicine Hematology & Oncology
DX: C80.0 Disseminated malignant neoplasm, unspecified (principal); N42.89 Other specified disorders of prostate; Z88.7 Allergy status to serum and vaccine
CPT/HCPCS: 74177; J1642; Q9967

== ENCOUNTER 2017-12-02 13:13 | Inpatient (IN) | payer BC ==
[2017-12-02 14:14] VITALS: BMI 24.2
[2017-12-02] MEDS ORDERED: HYDROcodone/APAP 10-325MG 1 EACH TAB PO PRN (14:27)
[2017-12-02] MEDS ORDERED: ALPRAZolam 0.5 MG TAB PO PRN (14:28)
[2017-12-02] MEDS ORDERED: IBUPROFEN 600 MG TAB PO PRN ×2 (14:37→15:14)
[2017-12-02] MEDS ORDERED: ONDANSETRON 4 MG TAB PO PRN (15:14)
--- NOTE | 2017-12-02 15:17 | P.HPIM ---
History of Present Illness 57-year-old pleasant gentleman was admitted and blood clots in the urine. Patient is on the palate a care patient had on known primary metastatic disease patient received chemotherapy, which was subsequently discontinued and patient is under hospice palliative care. Because of the blood clots there is a concern of urinary retention and abdominal pain and home hospice services is unable to provide continues bladder irrigation because of which patient is admitted for can he is bladder irrigation here. No further testing will be done patient is presently comfortable patient is on Zosyn hydrocodone acetaminophen ibuprofen and the Zofran all of which will be continued. Patient doesn't have any significant pain anywhere. Denied any feet shortness of breath nausea vomiting. Review of Systems All other review of systems are negative except for above-mentioned Past Medical History Past Medical History: Cancer, COPD, Liver Disease, Pneumonia Additional Past Medical History / Comment(s): hepatitis C, skin cancer, pneumonia 2017, recent hx. hematuria, bone scan positive-metastatic disease- trying to find primary source History of Any Multi-Drug Resistant Organisms: None Reported Past Surgical History: Hernia Repair, Orthopedic Surgery Additional Past Surgical History / Comment(s): testicle removed, toe surg, multiple hernia repairs Past Anesthesia/Blood Transfusion Reactions: No Reported Reaction Additional Past Anesthesia/Blood Transfusion Reaction / Comment(s): difficult IV start Past Psychological History: No Psychological Hx Reported Additional Psychological History / Comment(s): . 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 No experience. No extensive travel. Positive tobacco use. Drinks alcohol daily, multiple drinks per day. Denies injection drug use or other recreational drug use. No animal exposures. Pt no longer drives, spouse does. Using cane to ambulate. Smoking Status: Current every day smoker Past Alcohol Use History: Daily Additional Past Alcohol Use History / Comment(s): Smokes 1ppd normally, has smoked for 30 yrs., Used to drink a couple rum& cokes every day but only on occasion now. Past Drug Use History: None Reported - Past Family History Mother Family Medical History: Cancer Additional Family Medical History / Comment(s): Unknown type of cancer. Pt is adopted. Sister(s) Family Medical History: Cancer Additional Family Medical History / Comment(s): Unknown type of cancer Medications and Allergies Home Medications Medication Instructions Recorded Confirmed Type HYDROcodone/APAP 10-325MG [[place] 1 tab PO Q6H PRN 08/05/17 12/02/17 History 10-325] Ibuprofen [Motrin] 600 mg PO Q6HR PRN 08/05/17 12/02/17 History Ondansetron [Zofran] 4 mg PO TID PRN 08/05/17 12/02/17 History ALPRAZolam [Xanax] 0.5 mg PO Q8H PRN 10/24/17 12/02/17 History Calcium Carb-Vit D 500Mg-200Un 1 tab PO QID 12/02/17 12/02/17 History [Oscal 500+D] Ciprofloxacin HCl [Cipro] 500 mg PO Q12HR 12/02/17 12/02/17 History Allergies Allergy/AdvReac Type Severity Reaction Status Date / Time Tetanus Vaccines and Toxoid Allergy Swelling Verified 11/08/17 11:44 Physical Exam Vitals: Intake and Output 12/02/17 12/02/17 12/02/17 06:59 14:59 22:59 Other: Weight 74.5 kg PHYSICAL EXAMINATION: GENERAL: The patient is alert and oriented x3, not in any acute distress. Well developed, well nourished. HEENT: Pupils are round and equally reacting to light. EOMI. No scleral icterus. No conjunctival pallor. Normocephalic, atraumatic. No pharyngeal erythema. No thyromegaly. CARDIOVASCULAR: S1 and S2 present. No murmurs, rubs, or gallops. PULMONARY: Chest is clear to auscultation, no wheezing or crackles. ABDOMEN: Soft, nontender, nondistended, normoactive bowel sounds. No palpable organomegaly. MUSCULOSKELETAL: No joint swelling or deformity. EXTREMITIES: No cyanosis, clubbing, or pedal edema. NEUROLOGICAL: Gross neurological examination did not reveal any focal deficits. SKIN: No rashes. Thrombosis Risk Factor Assmnt - Choose All That Apply Each Factor Represents 1 point: Age 41-60 years, Medical pt on bed rest Each Risk Factor Represents 2 Points: Malignancy Thrombosis Risk Factor Assessment Total Risk Factor Score: 4 Thrombosis Risk Factor Assessment Level: Moderate Risk Assessment and Plan Plan: -Hematuria: Continuous bladder irrigation to avoid urinary retention and pain secondary to that. -Metastatic cancer unknown primary: Patient is on the palliative care now continue with supportive palliative care/hospice. -COPD
[2017-12-02] MEDS ORDERED: SODIUM CHLORIDE 0.9% IRRIGATIO 3,000 ML IRRIGATION ONE ×2 (15:18→18:23)
[2017-12-02] MEDS ORDERED: IBUPROFEN 600 MG TAB PO SCH (16:00)
[2017-12-02] MEDS ORDERED: HYDROmorphone 1 MG/ML 1 ML SYRINGE IVP PRN (17:02)
[2017-12-02] MEDS ORDERED: LORazepam 2 MG/ML INJ IV PRN (17:03)
[2017-12-02] MEDS: KETOROLAC 30 MG/ML 1 ML VIAL IVP SCH (18:26)
--- NOTE | 2017-12-02 22:18 | P.CONS ---
History of Present Illness - Reason for Consult Consult date: 12/02/17 Metastatic Carcinoma Requesting physician: Bell Holloway - Chief Complaint Hematuria - History of Present Illness Sukhwinder was originally refered from [facility] ER after he presented with Hematuria and lower back pain, the later present X 2-3 months and progressive, Hematuria developed 2 days before presentation. He was suspected of Having UTI > started on antibiotics. I was contacted by Dr Best, ER physician after CT Scan of abdomen/Pelvis revealed mottled apperance of all bones visualized C/W sclerotic metastatic disease, Prostate was enlarged with Heterogenious center with calcifications. The patient is taking Motrin 800mg Tid for pain and is only partially effective, he declined to take narcotics analgesic. He denies anorexia or weight loss, remains active and working signal timer as a mail clerk. Smokes 1-2 PPD X 35 years, consumes 2-3 drinks (Rum) every evening. He stated being diagnosed with Hep-C and not on any antiviral therapy at present. Sukhwinder ststed being evaluated by Dr Sloan over a year ago and told to have no signs of malignancy. Bone marrow aspirate & Biopsy : Dry "tap" > Very fibrotic with high-grade cancer with poor diferentiation. He had Cystoscopy (Dr Sloan) negative, but FISH on urine was positive. Sukhwinder unfortunetly did not respond to multiple lines of therapy and continued to become progressively weaker, he decided on palliative measures and in the transition of considering hospice care. Over the past few days he has had gross hematuria. with large clots. We were unable to accommodate a CBI for comfort measures in the home therefore he was directly admitted to [facility] for symptom control and continuous bladder irrigation. His pain is controlled best with anti -inflammatory Ibuprofen at home. He is a Full NO CPR/DNR. 12/02/17 - He was seen today and has the CBI. He states he is concerned about sleeping through the night and would like something on board in the case he needs something. r Review of Systems A 14 point review of systems assessed and completed and all negative except HPI Past Medical History Past Medical History: Cancer, COPD, Liver Disease, Pneumonia Additional Past Medical History / Comment(s): hepatitis C, skin cancer, pneumonia 2017, recent hx. hematuria, bone scan positive-metastatic disease- trying to find primary source History of Any Multi-Drug Resistant Organisms: None Reported Past Surgical History: Hernia Repair, Orthopedic Surgery Additional Past Surgical History / Comment(s): testicle removed, toe surg, multiple hernia repairs Past Anesthesia/Blood Transfusion Reactions: No Reported Reaction Additional Past Anesthesia/Blood Transfusion Reaction / Comm: difficult IV start Past Psychological History: No Psychological Hx Reported Additional Psychological History / Comment(s): . [employer] supervisor-working on medical disability/long-term. No experience. No extensive travel. Positive tobacco use. Drinks alcohol daily, multiple drinks per day. Denies injection drug use or other recreational drug use. No animal exposures. Pt no longer drives, spouse does. Using cane to ambulate. Smoking Status: Current every day smoker Past Alcohol Use History: Daily Additional Past Alcohol Use History / Comment(s): Smokes 1ppd normally, has smoked for 30 yrs., Used to drink a couple rum& cokes every day but only on occasion now. Past Drug Use History: None Reported - Past Family History Mother Family Medical History: Cancer Additional Family Medical History / Comment(s): Unknown type of cancer. Pt is adopted. Sister(s) Family Medical History: Cancer Additional Family Medical History / Comment(s): Unknown type of cancer Medications and Allergies Home Medications Medication Instructions Recorded Confirmed Type HYDROcodone/APAP 10-325MG [[place] 1 tab PO Q6H PRN 08/05/17 12/02/17 History 10-325] Ibuprofen [Motrin] 600 mg PO Q6HR PRN 08/05/17 12/02/17 History Ondansetron [Zofran] 4 mg PO TID PRN 08/05/17 12/02/17 History ALPRAZolam [Xanax] 0.5 mg PO Q8H PRN 10/24/17 12/02/17 History Calcium Carb-Vit D 500Mg-200Un 1 tab PO QID 12/02/17 12/02/17 History [Oscal 500+D] Ciprofloxacin HCl [Cipro] 500 mg PO Q12HR 12/02/17 12/02/17 History Allergies Allergy/AdvReac Type Severity Reaction Status Date / Time Tetanus Vaccines and Toxoid Allergy Swelling Verified 11/08/17 11:44 Physical Exam Vitals: Vital Signs Temp Pulse Resp BP Pulse Ox 12/02/17 15:00 98.6 F 94 18 160/84 96 Intake and Output 12/02/17 12/02/17 12/02/17 06:59 14:59 22:59 Other: Voiding Method Indwelling Catheter Weight 74.5 kg 74.5 kg - Constitutional General appearance: cooperative, no acute distress - EENT Eyes: EOMI, PERRLA, dentition normal ENT: NA/AT, normal oropharynx - Neck Neck supple, trachea midline - Respiratory Respiratory: bilateral: CTA (no increased effort) - Cardiovascular Rhythm: regular Heart sounds: normal: S1, S2 - Genitourinary Gross hematuria in Fowler bag - Integumentary Integumentary: pale - Neurologic no focal defects. Neurologic: CNII-XII intact - Musculoskeletal Musculoskeletal: generalized weakness, strength equal bilaterally - Psychiatric Psychiatric: A&O x's 3, appropriate affect, intact judgment & insight Assessment and Plan Plan: Assessment and Recommendations: 1. Metastatic Carcinoma - Unknown Primary - Failed multiple lines of therapy - Prognosis poor - Pallaitive/Comfort Measures goals of care only - DNR 2. Gross Hematuria: - CBI to clear or comfort 2. Metastatic bone Pain: - COntinue with Ibuprofen as this is for palliative comfort measures and provides patient with most comfort. Toradol if he would like instead is a resonable alternative. - [place] and PRN dilaudid, Bowel regimen for narcotic induced constipation if patient decides to utilize the prn pain medications - Ativan PRN sleep, anxiety, muscle spasms. Thank you for allowing us to participate in care of this patient. At this time Mr. Ortiz has refused further diagnostics or treatments. If he chooses to undergo a hgb/hct draw and wishes for a PRBC for comfort measures we agree this is resonable. THis has been offered to patient and he will let us know if he wishes to have this intervention. This case has been discussed with primary team and Dr. Penny Dillon
[2017-12-02] MEDS ORDERED: IBUPROFEN 600 MG TAB PO ONE (23:21)
[2017-12-02] MEDS: HYDROcodone/APAP 10-325MG 1 EACH TAB PO PRN (23:23)
[2017-12-02] MEDS: IBUPROFEN 600 MG TAB PO PRN (23:24)
[2017-12-03] MEDS: KETOROLAC 30 MG/ML 1 ML VIAL IVP SCH ×4 (02:40→17:16)
[2017-12-03] MEDS: SODIUM CHLORIDE 0.9% IRRIG 3,000 ML BAG IRRIGATION SCH ×3 (08:21→14:13)
[2017-12-03] MEDS: HYDROcodone/APAP 10-325MG 1 EACH TAB PO PRN (08:24)
[2017-12-03] MEDS ORDERED: IBUPROFEN 600 MG TAB PO PRN (08:29)
[2017-12-03] MEDS: IBUPROFEN 600 MG TAB PO PRN (08:32)
--- NOTE | 2017-12-03 10:56 | P.PN ---
Subjective 57-year-old pleasant gentleman was admitted and blood clots in the urine. Patient is on the palate a care patient had on known primary metastatic disease patient received chemotherapy, which was subsequently discontinued and patient is under hospice palliative care. Because of the blood clots there is a concern of urinary retention and abdominal pain and home hospice services is unable to provide continues bladder irrigation because of which patient is admitted for can he is bladder irrigation here. No further testing will be done patient is presently comfortable patient is on Zosyn hydrocodone acetaminophen ibuprofen and the Zofran all of which will be continued. Patient doesn't have any significant pain anywhere. Denied any feet shortness of breath nausea vomiting. 12/03/2017 No overnight events patient is comfortable patient is still having blood clots in the urine. Discharge patient as per oncology. Objective - Vital Signs Vital signs: Vital Signs Temp 98 F 12/03/17 06:33 Pulse 83 12/03/17 06:33 Resp 17 12/03/17 06:33 BP 155/87 12/03/17 06:33 Pulse Ox 96 12/03/17 06:33 Intake & Output 12/02/17 12/03/17 12/03/17 18:59 06:59 18:59 Intake Total 3750 Output Total 65399 4300 Balance -8950 -4300 Weight 74.5 kg 74.5 kg Intake: IV 3000 urinary cath irrigation 3000 Oral 750 Output: Urine [id number] 4300 Uretheral (Fowler) 6500 3300 Other: Voiding Method Indwelling Catheter Indwelling Catheter Indwelling Catheter - Exam PHYSICAL EXAMINATION: GENERAL: The patient is alert and oriented x3, not in any acute distress. Well developed, well nourished. HEENT: Pupils are round and equally reacting to light. EOMI. No scleral icterus. No conjunctival pallor. Normocephalic, atraumatic. No pharyngeal erythema. No thyromegaly. CARDIOVASCULAR: S1 and S2 present. No murmurs, rubs, or gallops. PULMONARY: Chest is clear to auscultation, no wheezing or crackles. ABDOMEN: Soft, nontender, nondistended, normoactive bowel sounds. No palpable organomegaly. MUSCULOSKELETAL: No joint swelling or deformity. EXTREMITIES: No cyanosis, clubbing, or pedal edema. NEUROLOGICAL: Gross neurological examination did not reveal any focal deficits. SKIN: No rashes. Assessment and Plan Plan: -Hematuria: Continuous bladder irrigation to avoid urinary retention and pain secondary to that. -Metastatic cancer unknown primary: Patient is on the palliative care now continue with supportive palliative care/hospice. -COPD
[2017-12-03 15:58] VITALS: BP 147/82; PULSE 76; RESP 16; TEMP 97.6
--- NOTE | 2017-12-03 19:30 | P.DS ---
Providers Date of admission: 12/02/17 13:41 Attending physician: Bruce James Consults: 12/02/17 14:33 Consult Physician Routine Consulting Provider: Basilio Long Consult Reason/Comments: metastatic disease Do you want consulting provider notified?: Already Contacted Primary care physician: Bruce James [facility] Course: Patient was later evaluated by oncology and they recommended discharge home with comfort care/palliative care. Triple lumen Fowler catheter will remain in place for as needed irrigation for hematuria as an outpatient. Plan - Discharge Summary Discharge Rx Participant: No New Discharge Prescriptions: No Action Ondansetron [Zofran] 4 mg PO TID PRN PRN Reason: Nausea Ibuprofen [Motrin] 600 mg PO Q6HR PRN PRN Reason: Pain HYDROcodone/APAP 10-325MG [[place] 10-325] 1 tab PO Q6H PRN PRN Reason: Pain ALPRAZolam [Xanax] 0.5 mg PO Q8H PRN PRN Reason: Anxiety Ciprofloxacin HCl [Cipro] 500 mg PO Q12HR Calcium Carb-Vit D 500Mg-200Un [[place] 500+D] 1 tab PO QID Discharge Medication List HYDROcodone/APAP 10-325MG [[place] 10-325] 1 tab PO Q6H PRN 08/05/17 [History] Ibuprofen [Motrin] 600 mg PO Q6HR PRN 08/05/17 [History] Ondansetron [Zofran] 4 mg PO TID PRN 08/05/17 [History] ALPRAZolam [Xanax] 0.5 mg PO Q8H PRN 10/24/17 [History] Calcium Carb-Vit D 500Mg-200Un [[place] 500+D] 1 tab PO QID 12/02/17 [History] Ciprofloxacin HCl [Cipro] 500 mg PO Q12HR 12/02/17 [History] Patient Instructions/Handouts: Fowler Catheter Placement and Care (DC), Hematuria (GEN) Discharge Disposition: HOME WITH HOME HEALTH SERVICES
--- NOTE | 2017-12-04 11:20 | P.PN ---
Subjective Progress Note Date: 12/03/17 Principal diagnosis: 1. Hematuria 2. Metastatic cancer, unknown primary, suspect source Pt's hematuria with large clots has improved. Continues to have hematuria which is chronic, although his clots are improved in size. Eager to go home. Objective - Vital Signs Vital signs: Vital Signs Temp 97.6 F 12/03/17 14:59 Pulse 76 12/03/17 14:59 Resp 16 12/03/17 14:59 BP 147/82 12/03/17 14:59 Pulse Ox 94 L 12/03/17 14:59 Intake & Output 12/03/17 12/03/17 12/04/17 06:59 18:59 06:59 Intake Total 3750 Output Total 34565 29686 Balance -8950 -41773 Weight 74.5 kg Intake: IV 3000 urinary cath irrigation 3000 Oral 750 Output: Urine 36766 [id number] Uretheral ([place]win) 6500 8000 Other: Voiding Method Indwelling Catheter Indwelling Catheter - Exam Constitutional: No acute distress. HEENT: EOMI. Mucosa moist. Neck: Neck supple. Lungs: Normal respiratory effort. Heart: Regular rate. No LE edema. Abdomen: Soft, nontender. MSK: 4/4 strength in all 4 extremities. Neuro: Alert and oriented x 3. No obvious gross neurologic deficits. Skin: No jaundice or rash. Psych: Appropriate affect. Assessment and Plan Assessment: 1. Hematuria 2. Metastatic cancer, unknown primary 3. Comfort measures Plan: Mr. Ortiz is a pleasant 57 yo male with metastatic carcinoma of unknown primary, suspect due to persistent hematuria, currently under comfort measures at home, here for worsening hematuria with passing of large clots. Improved overall with irrigation of the goodwin catheter. He is very eager for discharge. No objections to discharge from oncologic stand point. He can monitor for worsening of clots. Will be discharged with goodwin catheter for now and consider removal on outpatient basis. Discussed with primary service and nursing staff. Pt and agreeable.
== END 2017-12-03 19:40 | disposition hospice, home (50) | DRG 723 ==
LOC: 5ONC 13:41
PROVIDERS: ADMIT Hospitalist; ATTEND Hospitalist
DX: C63.9 Malignant neoplasm of male genital organ, unspecified (principal); C79.51 Secondary malignant neoplasm of bone; F17.200 Nicotine dependence, unspecified, uncomplicated; J44.9 Chronic obstructive pulmonary disease, unspecified; Z51.5 Encounter for palliative care; Z66 Do not resuscitate; Z85.828 Personal history of other malignant neoplasm of skin; Z87.01 Personal history of pneumonia (recurrent); Z90.79 Acquired absence of other genital organ(s); Z92.21 Personal history of antineoplastic chemotherapy; M54.5 Low back pain; K76.9 Liver disease, unspecified; Z88.7 Allergy status to serum and vaccine; Z80.9 Family history of malignant neoplasm, unspecified; N40.1 Benign prostatic hyperplasia with lower urinary tract symptoms; R31.9 Hematuria, unspecified